=== PATIENT | male | born 1940 | race Caucasian/White ===

== ENCOUNTER → 2016-06-13 | Day surgery (SDC) | payer OTHER ==
[~2016-06-13] MED LIST: ALBU8I INH; ALLO300 PO; COLC1TAB7 PO; LACTATED RINGER'S 1000 ML INJ 1,000 ML ONE; LEVA500T PO; LEVA750T PO; LEVO.075 PO; LUTE20CA PO; PERC5TAB12 PO; PRED20 PO; PROPOFOL 500 MG/50 ML BTL IV ONE
--- NOTE | 2016-06-13 14:19 | GIPROC ---
[facility] [address] [facility], [address] EGD WITH DILATION PROCEDURE REPORT EXAM DATE: 06/13/2016 PATIENT NAME: Igor Lynne MR#: [id number] BIRTHDATE: 1940 ATTENDING: Annalise Hernández MD ORDER #: [id number] RISK MANAGEMENT DIRECTOR: Jami Ray RN STATUS: outpatient INDICATIONS: The patient is a 76 yr old male here for an EGD with dilation due to bloating , abdominal discomfort, dysphagia PROCEDURE PERFORMED: EGD w/ biopsy EGD w/ dilation of esophagus via guidewire MEDICATIONS: None and Per Anesthesia. TOPICAL ANESTHETIC: none CONSENT: The patient understands the risks and benefits of the procedure and understands that these risks include, but are not limited to: sedation, allergic reaction, infection, perforation and/or bleeding. Alternative means of evaluation and treatment include, among others: physical exam, x-rays, and/or surgical intervention. The patient elects to proceed with this endoscopic procedure. medical equipment was checked for proper function. Hand hygiene and appropriate measures for infection prevention was taken. After the risks, benefits and alternatives of the procedure were thoroughly explained, Informed consent was verified, confirmed and timeout was successfully executed by the treatment team. The patient was anesthetized with topical anesthesia and the EC-3490Li ([id number]) and EC-3490Li ([id number]) endoscope was introduced through the mouth and advanced to the second portion of the duodenum. The instrument was slowly withdrawn as the mucosa was fully examined. Gastrtis antrum-biopsy esophagitis distal esophagus-biopsy Schatzki's ring-biopsy dilatation using Savary dilator 16. Dilation was performed at gastroesophageal junction. DILATOR: SIZE(S): RESISTANCE: HEME: APPEARANCE: Dilator: Savary over guidewire Size(s): 16 COMMENT: Retroflexed views revealed a hiatal hernia ADVERSE EVENTS: There were no complications. IMPRESSIONS: 1. Gastrtis antrum-biopsy esophagitis distal esophagus-biopsy Schatzki's ring-biopsy dilatation using Savary dilator 16 2. Retroflexed views revealed a hiatal hernia RECOMMENDATIONS: 1. Await biopsy results. Biopsy results will not be ready for 7-10 days. If you don't hear from us in two weeks, call our office for biopsy results. 2. Anti-reflux regimen 3. Continue PPI 4. Dilatations PRN 5. Avoid NSAIDS REPEAT EXAM: EGD pending biopsy results Annalise Hernández MD eSigned: Annalise Hernández MD 06/13/2016 2:18 PM cc: Hyun Bragg [facility] Radha Hays M.D. PATIENT NAME: Igor Lynne MR#: [id number]
--- NOTE | 2016-06-13 14:22 | GIPROC ---
[facility] [address] [facility], [address] COLONOSCOPY PROCEDURE REPORT EXAM DATE: 06/13/2016 PATIENT NAME: Igor Lynne MR #: [id number] BIRTHDATE: 1940 ENDOSCOPIST: Annalise eHrnández MD ORDER #: [id number] LEAD CASTER HELPER: Jami aRy RN STATUS: outpatient INDICATIONS: The patient is a 76 yr old male here for a colonoscopy due to change in bowel habits, abdominal pain PROCEDURE PERFORMED: Colonoscopy with control of bleeding Colonoscopy with polypectomy Colonoscopy with ablation MEDICATIONS: None and Per Anesthesia. PREP QUALITY: good PREP TYPE:GoLytely ESTIMATED BLOOD LOSS: None CONSENT: The patient understands the risks and benefits of the procedure and understands that these risks include, but are not limited to: sedation, allergic reaction, infection, perforation and/or bleeding. Alternative means of evaluation and treatment include, among others: physical exam, x-rays, and/or surgical intervention. The patient elects to proceed with this endoscopic procedure. medical equipment was checked for proper function. Hand hygiene and appropriate measures for infection prevention was taken. After the risks, benefits and alternatives of the procedure were thoroughly explained, Informed consent was verified, confirmed and timeout was successfully executed by the treatment team. A digital exam revealed external hemorrhoids The EC-3490Li ([id number]) endoscope was introduced through the anus and advanced to the cecum, which was identified by both the appendix and ileocecal valve. The instrument was then slowly withdrawn as the colon was fully examined. COLON FINDINGS: Diverticulosis sigmoid,descending sessile polyp ascending-1 cm long-hot snare polypectomy with ablation of base using tip of snare, some bleeding-2 clips applied. Retroflexed views revealed internal hemorrhoids and Retroflexed views revealed small internal hemorrhoids The scope was then completely withdrawn from the patient and the procedure terminated. PROCEDURE WITHDRAWAL TIME:20minutes ADVERSE EVENTS: There were no complications. IMPRESSIONS: 1. Diverticulosis sigmoid,descending sessile polyp ascending-1 cm long-hot snare polypectomy with ablation of base using tip of snare, some bleeding-2 clips applied 2. Retroflexed views revealed internal hemorrhoids 3. Retroflexed views revealed small internal hemorrhoids 4. Revealed external hemorrhoids RECOMMENDATIONS: 1. Await biopsy results. Biopsy results will not be ready for 7-10 days. If you don't hear from us in two weeks, call our office for results. 2. Benefiber 2 tsp daily 3. Probiotics from any C or health food store 4. Yearly rectal exams 5. High fiber diet RECALL: Colonoscopy, pending biopsy results Annalise Hernández MD eSigned: Annalise Hernández MD 06/13/2016 2:22 PM cc: Hyun Bragg, [facility] Radha and Geni Hays M.D. PATIENT NAME: Igor Lynne MR#: [id number]
== END | disposition home or self-care (01) ==
LOC: ESDC 10:28
PROVIDERS: ATTEND Internal Medicine Gastroenterology
DX: R10.9 Unspecified abdominal pain (principal); R19.4 Change in bowel habit; D12.2 Benign neoplasm of ascending colon; K57.90 Diverticulosis of intestine, part unspecified, without perforation or abscess without bleeding; K64.8 Other hemorrhoids; K64.4 Residual hemorrhoidal skin tags; R14.0 Abdominal distension (gaseous); R13.10 Dysphagia, unspecified; K29.70 Gastritis, unspecified, without bleeding; K20.9 Esophagitis, unspecified; K22.2 Esophageal obstruction; K44.9 Diaphragmatic hernia without obstruction or gangrene
CPT/HCPCS: 00740; 00810; 43239; 43248; 45382; 45385; 88305; J3010; J7120

== ENCOUNTER 2016-12-11 17:22 | Inpatient (IN) | payer OTHER, MEDICARE ==
[~2016-12-11] VITALS: Ht 175.3 cm; Wt 88.2 kg
[~2016-12-11 17:22] MED LIST changes: -LACTATED RINGER'S 1000 ML INJ 1,000 ML ONE; -PROPOFOL 500 MG/50 ML BTL IV ONE
[2016-12-11 17:24] VITALS: BP 160/65; PULSE 88; RESP 20; TEMP 97.8; O2SAT 93
[2016-12-11] MEDS ORDERED: PERC10TA27 PO (17:54)
[2016-12-11] MEDS ORDERED: SYNT112T PO (17:54)
[2016-12-11] MEDS ORDERED: ONDANSETRON HCL 4 MG/2 ML VIAL IV PUSH ONE (18:00)
[2016-12-11] MEDS ORDERED: SODIUM CHLOR 0.9% 1000 ML INJ 1,000 ML IV ONE (18:00)
[2016-12-11] MEDS ORDERED: MORPHINE SULFATE 4 MG/ML INJ IV PUSH ONE (18:00)
--- NOTE | 2016-12-11 18:10 | PD ---
HPI Chief Complaint: Musculoskeletal Complaint Time Seen by Provider: 17:40 Travel History International Travel<30 days: No Contact w/Intl Traveler<30days: No Traveled to known affect area: No History of Present Illness HPI 76 year old male presents to the emergency department for evaluation of right leg pain. Patient does report history of right leg pain, but states it has been worse since , 3 days ago. He states he was seen at [facility] on Monday and had a CT scan of his abdomen/pelvis done which showed kidney stones. However, he denies any back pain or abdominal pain on my exam. Patient reports history of chronic back pain due to previous surgery by Dr. Srinivasa Espinal. He states he had an MRI done recently which showed "a loose screw". However, he states he does not want to see Dr. Espinal anymore. He was discharged home from [facility] with prescription for oxycodone which she states he is taking without improvement. Patient states the entire leg hurts. He states it feels like "I have a broken bone". He does state that he has fallen several times recently, but last time he fell was on Monday, pain was not after the fall. He states these are all trip and falls. He states he did not his head or having loss of consciousness. He denies any neck pain or back pain. No chest pain or shortness breath. No abdominal pain. No nausea, vomiting, diarrhea. Patient states he has history of chronic right foot drop which has been ongoing for 4-5 months. Patient reports history of surgery to L3-[address] Espinal 5 years ago and surgery to C3 by Dr. Espinal 3 years ago. 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) Cardiovascular Problems: Yes High Cholesterol: Yes (LDL is a little high) Chemotherapy: No Diabetes: No Diminished Hearing: No Endocrine: Yes Gastrointestinal Disorders: Yes GERD: Yes Genitourinary: No Hiatal Hernia: Yes Immune Disorder: No Kidney Stones: Yes (8 times) Musculoskeletal: Yes Neurologic: Yes Psychiatric: Yes Reproductive: No Respiratory: Yes Immunizations Current: Yes Radiation Therapy: No Renal Failure: No Sleep Apnea: Yes Thyroid Disease: Yes Ulcer: No Past Surgical History Abdominal Surgery: Yes (Gall bladder removed 2011) Body Medical Devices: 2 screws in back Cardiac Surgery: No Cholecystectomy: Yes Ear Surgery: No Endocrine Surgery: No Eye Surgery: No Genitourinary Surgery: No Gynecologic Surgery: No Thoracic Surgery: No Other Surgery: Yes Social History Alcohol Use: Yes (RARE OCCASSION) Tobacco Use: No Substance Use: No Allergies-Medications (Allergen,Severity, Reaction): Coded Allergies: codeine (Verified Allergy, Severe, Nausea/Vomiting, 12/11/16) Reported Meds & Prescriptions Reported Meds & Active Scripts Active Reported Percocet (Oxycodone-Acetaminophen) 10-325 mg Tab 1 Tab PO Q4H PRN Synthroid (Levothyroxine Sodium) 112 Mcg Tab 112 Mcg PO DAILY Review of Systems Except as stated in HPI: all other systems reviewed are Neg Physical Exam Narrative GENERAL: Well-nourished, well-developed male patient, afebrile. SKIN: Focused skin assessment warm/dry. HEAD: Normocephalic. Atraumatic. EYES: No scleral icterus. No injection or drainage. NECK: Supple, trachea midline. No JVD or lymphadenopathy. CARDIOVASCULAR: Regular rate and rhythm without murmurs, gallops, or rubs. Bilateral radial and pedal pulses are 2+. RESPIRATORY: Breath sounds equal bilaterally. No accessory muscle use. Lungs sounds are clear to auscultation. GASTROINTESTINAL: Abdomen soft, non-tender, nondistended. MUSCULOSKELETAL: No cyanosis, or edema. Patient has full range of motion of all joints of the right leg. There is no tenderness to palpation over the right leg. He does have tenderness with straight leg raise on the right side. No edema or erythema. BACK: Nontender without obvious deformity. No CVA tenderness. No midline spinal tenderness. Data Data Last Documented VS Vital Signs Date Time Temp Pulse Resp B/P (MAP) Pulse Ox O2 Delivery O2 Flow Rate FiO2 12/11/16 17:24 97.8 88 20 160/65 (96) 93 Room Air Orders Orders Iv Access Insert/Monitor (12/11/16 17:53) Complete Blood Count With Diff (12/11/16 17:53) Comprehensive Metabolic Panel (12/11/16 17:53) Urinalysis - C+S If Indicated (12/11/16 17:53) Sodium Chlor 0.9% 1000 Ml Inj (Ns 1000 M (12/11/16 18:00) Morphine Inj (Morphine Inj) (12/11/16 18:00) Ondansetron Inj (Zofran Inj) (12/11/16 18:00) Mri L Spine W/O Contrast (12/11/16 ) Hydromorphone Pf Inj (Dilaudid Pf Inj) (12/11/16 18:15) Dexamethasone Inj (Decadron Inj) (12/11/16 19:30) Orphenadrine Inj (Norflex Inj) (12/11/16 19:45) Admit Order (Ed Use Only) (12/11/16 20:00) Labs Laboratory Tests Test 12/11/16 18:15 White Blood Count 6.3 TH/MM3 Red Blood Count 3.85 MIL/MM3 Hemoglobin 12.7 GM/DL Hematocrit 36.6 % Mean Corpuscular Volume 95.0 FL Mean Corpuscular Hemoglobin 33.0 PG Mean Corpuscular Hemoglobin Concent 34.7 % Red Cell Distribution Width 13.9 % Platelet Count 323 TH/MM3 Mean Platelet Volume 7.9 FL Neutrophils (%) (Auto) 71.8 % Lymphocytes (%) (Auto) 18.7 % Monocytes (%) (Auto) 7.1 % Eosinophils (%) (Auto) 1.2 % Basophils (%) (Auto) 1.2 % Neutrophils # (Auto) 4.6 TH/MM3 Lymphocytes # (Auto) 1.2 TH/MM3 Monocytes # (Auto) 0.5 TH/MM3 Eosinophils # (Auto) 0.1 TH/MM3 Basophils # (Auto) 0.1 TH/MM3 CBC Comment DIFF FINAL Differential Comment Blood Urea Nitrogen 23 MG/DL Creatinine 1.25 MG/DL Random Glucose 84 MG/DL Total Protein 7.0 GM/DL Albumin 4.0 GM/DL Calcium Level 9.5 MG/DL Alkaline Phosphatase 75 U/L Aspartate Amino Transf (AST/SGOT) 34 U/L Alanine Aminotransferase (ALT/SGPT) 28 U/L Total Bilirubin 0.8 MG/DL Sodium Level 138 MEQ/L Potassium Level 4.1 MEQ/L Chloride Level 106 MEQ/L Carbon Dioxide Level 23.0 MEQ/L Anion Gap 9 MEQ/L Estimat Glomerular Filtration Rate 56 ML/MIN MDM Medical Decision Making Medical Screen Exam Complete: Yes Emergency Medical Condition: Yes Medical Record Reviewed: Yes Interpretation(s) Last Impressions Lumbar Spine MRI 12/11/16 0000 Signed Impressions: Service Date/Time: Sunday, December 11, 2016 18:46 - CONCLUSION: 1. At L3-4 there is a grade 1 retrolisthesis resulting in moderate stenosis of the canal at the lateral recesses and moderate bilateral foraminal stenosis. 2. At L4-5 there is fusion with a residual grade 1 anterolisthesis and mild lateral recess and foraminal encroachment bilaterally. 3. At L5-S1 there is a disc bulge and facet arthropathy with moderate right foraminal stenosis and some flattening of the right L5 nerve root. 4. No acute fracture. Conus intact. Charly Nichole MD Differential Diagnosis Lumbar radiculopathy versus herniated disc versus chronic pain Narrative Course 76 year old male presents to the emergency department for right leg pain that is been severe for 3 days. No evidence of bony injury on exam. My attending physician, Dr. Malloy, also examined patient with me. CBC, CMP, UA are ordered and pending. IV access obtained. Patient is given normal saline 1 L IV bolus, Dilaudid 0.5 mg IV, Zofran 4 mg IV. MRI of the lumbar spine without contrast is ordered and pending. CBC shows no acute abnormality. CMP shows no acute abnormality. UA [-]. MRI of the lumbar spine shows at L3-4 there is a grade 1 retrolisthesis resulting in moderate stenosis of the canal at the lateral recesses and moderate bilateral foraminal stenosis; at L4-5 there is fusion with a residual grade 1 anterolisthesis and mild lateral recess and foraminal encroachment bilaterally; at L5-S1 there is a disc bulge and facet arthropathy with moderate right foraminal stenosis and some flattening of the right L5 nerve root; No acute fracture. Conus intact. I will contact patient's orthopedist, Dr. Srinivasa Espinal. Patient reports no improvement after Dilaudid. He is given dexamethasone 8 mg IV, Norflex 60 mg IM. I spoke to Dr. Norris with Dr. Espinal's office. She states that Dr. Espinal does not perform spine surgery. She went through her records at the office he cannot find any evidence that one of the providers at the office did the surgery on him. She states that it may be better to do consult to neurosurgery due to the fact that she does not believe that they did the surgery. [facility] is paged for admission. Dr. Engel accepted admission. Diagnosis Primary Impression: Intractable back pain Admitting Information Admitting Physician Requests: Observation Stephani Hanson Dec 11, 2016 18:10
[2016-12-11] MEDS ORDERED: HYDROmorphone HCL PF 0.5 MG/0.5 ML SYRINGE IV PUSH ONE (18:15)
[2016-12-11 18:44] LABS: AUTOMATED NEUTROPHIL # 4.6 TH/MM3 (1.8-7.7); BASOPHIL # 0.1 TH/MM3 (0-0.2); BASOPHIL % 1.2 % (0.0-2.0); EOSINOPHIL # 0.1 TH/MM3 (0-0.4); EOSINOPHIL % 1.2 % (0.0-4.0); HEMATOCRIT 36.6 % (39.0-51.0); HEMO FLAGS DIFF FINAL; LYMPH % 18.7 % (9.0-44.0); LYMPHOCYTE # 1.2 TH/MM3 (1.0-4.8); MEAN CORPUSCULAR HGB CONC 34.7 % (32.0-36.0); MONO % 7.1 % (0.0-8.0); NEUT % 71.8 % (16.0-70.0); PLATELET COUNT 323 TH/MM3 (150-450); RED BLOOD COUNT 3.85 MIL/MM3 (4.50-5.90); RED CELL DISTRIBUTION WIDTH 13.9 % (11.6-17.2); WHITE BLOOD COUNT 6.3 TH/MM3 (4.0-11.0)
[2016-12-11 19:00] LABS: ANION GAP 9 MEQ/L (5-15); AST (GOT) 34 U/L (15-37); BLOOD UREA NITROGEN 23 MG/DL (7-18); CHLORIDE 106 MEQ/L (98-107); GLOMERULAR FILTRATION RATE 56 ML/MIN (>89); POTASSIUM 4.1 MEQ/L (3.5-5.1); SODIUM (NA) 138 MEQ/L (136-145)
[2016-12-11 19:01] LABS: ALT (GPT) 28 U/L (12-78)
[2016-12-11 19:03] LABS: ALKALINE PHOSPHATASE 75 U/L (45-117); TOTAL BILIRUBIN ADULT 0.8 MG/DL (0.2-1.0)
--- NOTE | 2016-12-11 19:23 | RADRPT ---
EXAM DATE/TIME: 12/11/2016 18:46 [facility] COMPARISON: No previous studies available for comparison. INDICATIONS : Fall, low back and rt leg pain. MEDICAL HISTORY : Arthritis. SURGICAL HISTORY : Fusion, lumbar. Fusion, cervical. ENCOUNTER: Initial ACUITY: 1 day PAIN SCORE: 5/10 LOCATION: [facility] TECHNIQUE: Multiplanar multisequence MRI of the lumbar spine was performed without contrast. FINDINGS: At T12 and L1-L2 there is mild degenerative disc disease and facet arthropathy without significant ca nal or foraminal stenosis. At L2-3 there is a mild broad-based posterior disc protrusion and facet arthropathy with mild stenosi s of the lateral recesses and mild bilateral foraminal stenosis. At L3-4 there is a grade 1 retrolisthesis and advanced facet arthropathy. This results in a moderate stenosis of the lateral recesses and moderate bilateral foraminal stenosis with some flattening of th e exiting nerve roots. At L4-5 there is screw fixation of a minimal residual anterolisthesis. Mild canal stenosis of lateral recesses and mild bilateral foraminal encroachment. L5-S1: Mild central disc bulge and facet arthropathy. Mild canal stenosis the lateral recesses and mild left -sided foraminal encroachment. Moderate right foraminal stenosis with flattening of the right L5 nerv e root. CONCLUSION: 1. At L3-4 there is a grade 1 retrolisthesis resulting in moderate stenosis of the canal at the later al recesses and moderate bilateral foraminal stenosis. 2. At L4-5 there is fusion with a residual grade 1 anterolisthesis and mild lateral recess and forami nal encroachment bilaterally. 3. At L5-S1 there is a disc bulge and facet arthropathy with moderate right foraminal stenosis and so me flattening of the right L5 nerve root. 4. No acute fracture. Conus intact. Charly Nichole MD on December 11, 2016 at 19:17 Board Certified Radiologist. This report was verified electronically.
[2016-12-11] MEDS ORDERED: DEXAMETHASONE SOD PHOS 4 MG/ML VIAL IV PUSH ONE (19:30)
[2016-12-11] MEDS ORDERED: ORPHENADRINE INJ 60 MG/2 ML AMP IM ONE (19:45)
[2016-12-11] MEDS ORDERED: IOHEXOL 300 MG/ML 50 ML BTL (for RAD DIAG) IT ONE (20:02)
[2016-12-11 20:04] VITALS: BP 146/84; PULSE 79; RESP 18; O2SAT 95
--- NOTE | 2016-12-11 20:23 | HHI.HP ---
HPI Service [facility] Primary Care Physician Geni Hays MD Admission Diagnosis intractable back pain Diagnoses: (1) Recurrent falls Diagnosis: Principal (2) Intractable back pain Diagnosis: Principal (3) Dehydration Diagnosis: Principal (4) HTN (hypertension) Diagnosis: Principal Travel History International Travel<30 Days: No Contact w/Intl Traveler <30 Da: No Traveled to Known Affected Are: No History of Present Illness This is a 76-year-old male with a PMH of Anxiety, Depression, HTN, Hyperlipidemia, Hypothyroidism and Sleep Apnea who presented to the ER with complaints of severe back pain in addition to right leg pain x1 wk. Denies injury or trauma. Was seen at [facility] 12/09/16 for similar complaints, d/c' d home w/ Rx for Norflex and Percocet w/ Ortho follow up. Returned to [facility] several hours later on 12/09/16 w/ ongoing complaints. CT Abd/Pelvis w/ no acute findings. Pelvis X-ray w/ no evidence of bony pathology per records. D/c'd home once again, however returns now w/ ongoing severe pain, also notes radicular, shooting pain down RLE. Previously following w/ Dr. Espinal s/p Lumbar Sx 5yrs ago, has appt in 1mo. On arrival, BP 160/65, HR 88, O2 sat 93% on RA, Afebrile. CBC unremarkable. Chemistry essentially unremarkable except for GFR 56. MRI L-spine with L3-L4 grade 1 retrolisthesis resulting in moderate stenosis and moderate bilateral foraminal stenosis, L4-L5 with fusion and residual grade 1 anterolisthesis, L5-S1 disc bulge with moderate right foraminal stenosis and flattening of right L5 nerve root. Dr. Norris consulted by ER physician, recommended further eval by Neurosurgery if needed. S/p multiple doses of pain medication in ER w/ minimal improvement. Review of Systems Except as stated in HPI: all other systems reviewed are Neg ROS: 14 point review of systems otherwise negative. Past Family Social History Past Medical History PMH: Anxiety, Depression, HTN, Hyperlipidemia, Hypothyroidism and Sleep Apnea Past Surgical History PAST SURGICAL HISTORY: Cholecystectomy Back Surgery Allergies: Coded Allergies: codeine (Verified Allergy, Severe, Nausea/Vomiting, 12/11/16) Family History PAST FAMILY HISTORY: Reviewed. No h/o DM or CAD Social History PAST SOCIAL HISTORY: Occasional alcohol. Negative for tobacco or drugs. Physical Exam Vital Signs Vital Signs Date Time Temp Pulse Resp B/P (MAP) Pulse Ox O2 Delivery O2 Flow Rate FiO2 12/11/16 20:04 79 18 146/84 (104) 95 Room Air 12/11/16 17:24 97.8 88 20 160/65 (96) 93 Room Air Physical Exam PE: GENERAL: Elderly male in mild distress secondary to pain HEENT: PERRLA, EOMI. No scleral icterus or conjunctival pallor. No lid lag or facial droop. CARDIOVASCULAR: Regular rate and rhythm. No obvious murmurs to auscultation. No chest tenderness to palpation. RESPIRATORY: No obvious rhonchi or wheezing. Clear to auscultation. Breath sounds equal bilaterally. GASTROINTESTINAL: Abdomen soft, non-tender, nondistended. BS normal. MUSCULOSKELETAL: Extremities without clubbing, cyanosis, or edema. No obvious deformities. Reproducible right lumbar pain w/ straight leg raise. NEUROLOGICAL: Awake, alert and oriented x4. No focal neurologic deficits. Moving both upper and lower extremities spontaneously. Laboratory Laboratory Tests Test 12/11/16 18:15 White Blood Count 6.3 Red Blood Count 3.85 Hemoglobin 12.7 Hematocrit 36.6 Mean Corpuscular Volume 95.0 Mean Corpuscular Hemoglobin 33.0 Mean Corpuscular Hemoglobin Concent 34.7 Red Cell Distribution Width 13.9 Platelet Count 323 Mean Platelet Volume 7.9 Neutrophils (%) (Auto) 71.8 Lymphocytes (%) (Auto) 18.7 Monocytes (%) (Auto) 7.1 Eosinophils (%) (Auto) 1.2 Basophils (%) (Auto) 1.2 Neutrophils # (Auto) 4.6 Lymphocytes # (Auto) 1.2 Monocytes # (Auto) 0.5 Eosinophils # (Auto) 0.1 Basophils # (Auto) 0.1 CBC Comment DIFF FINAL Differential Comment Blood Urea Nitrogen 23 Creatinine 1.25 Random Glucose 84 Total Protein 7.0 Albumin 4.0 Calcium Level 9.5 Alkaline Phosphatase 75 Aspartate Amino Transf (AST/SGOT) 34 Alanine Aminotransferase (ALT/SGPT) 28 Total Bilirubin 0.8 Sodium Level 138 Potassium Level 4.1 Chloride Level 106 Carbon Dioxide Level 23.0 Anion Gap 9 Estimat Glomerular Filtration Rate 56 Result Diagram: 12/11/16181412/11/161814 Caprini VTE Risk Assessment Caprini VTE Risk Assessment: No/Low Risk (score <= 1) Caprini Risk Assessment Model Point Value = 1 Point Value = 2 Point Value = 3 Point Value = 5 Age 41-60 Minor surgery BMI > 25 kg/m2 Swollen legs Varicose veins or History of unexplained or recurrent spontaneous Oral contraceptives or hormone replacement Sepsis (< 1 month) Serious lung disease, including pneumonia (< 1 month) Abnormal pulmonary function Acute myocardial infarction Congestive heart failure (< 1 month) History of inflammatory bowel disease Medical patient at bed rest Age 61-74 Arthroscopic surgery Major open surgery (> 45 min) Laparoscopic surgery (> 45 min) Malignancy Confined to bed (> 72 hours) Immobilizing plaster cast Central venous access Age >= 75 History of VTE Family history of VTE Factor V Leiden Prothrombin [id number] Lupus anticoagulant Anticardiolipin antibodies Elevated serum homocysteine Heparin-induced thrombocytopenia Other congenital or acquired thrombophilia Stroke (< 1 month) Elective arthroplasty Hip, pelvis, or leg fracture Acute spinal cord injury (< 1 month) Prophylaxis Regimen Total Risk Factor Score Risk Level Prophylaxis Regimen 0-1 Low Early ambulation 2 Moderate Order ONE of the following: *Sequential Compression Device (SCD) *Heparin 5000 units SQ BID 3-4 Higher Order ONE of the following medications: *Heparin 5000 units SQ TID *Enoxaparin/Lovenox 40 mg SQ daily (WT < 150 kg, CrCl > 30 mL/min) *Enoxaparin/Lovenox 30 mg SQ daily (WT < 150 kg, CrCl > 10-29 mL/min) *Enoxaparin/Lovenox 30 mg SQ BID (WT < 150 kg, CrCl > 30 mL/min) AND/OR *Sequential Compression Device (SCD) 5 or more Highest Order ONE of the following medications: *Heparin 5000 units SQ TID (Preferred with Epidurals) *Enoxaparin/Lovenox 40 mg SQ daily (WT < 150 kg, CrCl > 30 mL/min) *Enoxaparin/Lovenox 30 mg SQ daily (WT < 150 kg, CrCl > 10-29 mL/min) *Enoxaparin/Lovenox 30 mg SQ BID (WT < 150 kg, CrCl > 30 mL/min) AND *Sequential Compression Device (SCD) Assessment and Plan Problem List: (1) Recurrent falls ICD Code: R29.6 - Repeated falls (2) Intractable back pain ICD Code: M54.9 - Dorsalgia, unspecified Status: Acute (3) Dehydration ICD Code: E86.0 - Dehydration (4) HTN (hypertension) ICD Code: I10 - Essential (primary) hypertension Assessment and Plan A/P: 1. Recurrent Falls: reports recurrent falls x1 wk secondary to severe back pain, no LOC or head trauma noted. PT for eval/tx. 2. Intractable Back Pain: w/ associated Radicular Pain, s/p eval [facility] on 2 separate occasions, given Percocet, Norflex w/ no relief. CT Abd/Pelvis and Pelvic X-ray at w/ no acute findings, no lumbar imaging per records. MRI L-spine here w/ moderate canal stenosis, flattening of L5 nerve root, images reviewed by me. Dr. Norris consulted by ER physician, recommended eval w/ NxSx, will consult for eval in am. Solu-Medrol, Valium, analgesics/antiemetics as needed. PT for eval/tx. 3. Dehydration: GFR 56, BUN 23. IVF for hydration, repeat labs in am. 4. HTN: BP 160's on arrival, likely compounded by pain complaints, BP 140's currently. Will monitor. 5. DVT Prophylaxis: SCD/Teds 6. Social work for d/c planning as needed. 7. Case discussed w/ ER physician at length. Kaleigh Engel MD Dec 11, 2016 20:23
[2016-12-11] MEDS ORDERED: BISACODYL 10 MG SUPP RECTAL PRN (20:30)
[2016-12-11] MEDS ORDERED: LACTULOSE SYRUP 20 GM/30 ML CUP PO PRN (20:30)
[2016-12-11] MEDS ORDERED: SENNOSIDES 8.6 MG TAB PO PRN (20:30)
[2016-12-11] MEDS ORDERED: DIAZEPAM 5 MG TAB PO PRN (20:30)
[2016-12-11] MEDS ORDERED: ACETAMINOPHEN 325 MG TAB PO PRN (20:30)
[2016-12-11] MEDS ORDERED: ONDANSETRON HCL 4 MG/2 ML VIAL IVP PRN (20:30)
[2016-12-11] MEDS ORDERED: SODIUM CHLORIDE 0.9% FLUSH 10 ML FLUSH IV FLUSH PRN (20:30)
[2016-12-11] MEDS ORDERED: MAGNESIUM HYDROXIDE SUSP 30 ML CUP PO PRN (20:30)
[2016-12-11] MEDS: SODIUM CHLOR 0.9% 1000 ML INJ 1,000 ML IV SCH (20:49)
[2016-12-11] MEDS: SODIUM CHLORIDE 0.9% FLUSH 10 ML FLUSH IV FLUSH SCH (21:06)
[2016-12-11] MEDS: DOCUSATE SODIUM 50 MG/SENNA 8.6 MG TAB PO SCH (22:15)
[2016-12-12] VITALS (8 sets, daily range): BP systolic 126–171; BP diastolic 61–94; PULSE 75–87; RESP 16–18; TEMP 97.5–98.5; O2SAT 93–99
[2016-12-12 00:43] LABS: BLOOD, URINE NEG (NEG); COMMENT (UR) CULT NOT INDICATED; CULTURE IF INDICATED CULT NOT INDICATED; GLUCOSE,URINE NEG (NEG); KETONE, URINE TRACE mg/dL (NEG); MUCUS URINE FEW /lpf (OCC); NITRITE,URINE NEG (NEG); PH, URINE 5.5 (5.0-8.5); URINE COLOR YELLOW (YELLW/STRAW)
[2016-12-12] MEDS: MORPHINE SULFATE 4 MG/ML INJ IV PUSH PRN ×2 (02:54→06:25)
[2016-12-12] MEDS: CALCIUM CARBONATE 500 MG CHEWABLE TAB CHEW PRN (03:35)
[2016-12-12 04:50] LABS: AUTOMATED NEUTROPHIL # 4.8 TH/MM3 (1.8-7.7); BASOPHIL % 0.1 % (0.0-2.0); HEMO FLAGS DIFF FINAL; LYMPHOCYTE # 0.4 TH/MM3 (1.0-4.8); MEAN CELL VOLUME 95.4 FL (80.0-100.0); MEAN CORPUSCULAR HEMOGLOBIN 32.6 PG (27.0-34.0); MEAN CORPUSCULAR HGB CONC 34.1 % (32.0-36.0); MONO % 1.2 % (0.0-8.0); NEUT % 91.7 % (16.0-70.0); PLATELET COUNT 329 TH/MM3 (150-450); RED BLOOD COUNT 3.88 MIL/MM3 (4.50-5.90); RED CELL DISTRIBUTION WIDTH 13.5 % (11.6-17.2); WHITE BLOOD COUNT 5.2 TH/MM3 (4.0-11.0)
[2016-12-12 05:26] LABS: ALT (GPT) 24 U/L (12-78); ANION GAP 9 MEQ/L (5-15); AST (GOT) 31 U/L (15-37); BICARBONATE 25.1 MEQ/L (21.0-32.0); BLOOD UREA NITROGEN 22 MG/DL (7-18); CHLORIDE 105 MEQ/L (98-107); GLOMERULAR FILTRATION RATE 64 ML/MIN (>89); POTASSIUM 4.6 MEQ/L (3.5-5.1); SODIUM (NA) 139 MEQ/L (136-145)
[2016-12-12 05:29] LABS: ALKALINE PHOSPHATASE 73 U/L (45-117); TOTAL BILIRUBIN ADULT 0.8 MG/DL (0.2-1.0)
[2016-12-12] MEDS: LEVOTHYROXINE SODIUM 112 MCG TAB PO SCH (06:19)
[2016-12-12] MEDS: SODIUM CHLOR 0.9% 1000 ML INJ 1,000 ML IV SCH ×2 (07:10→15:47)
[2016-12-12] MEDS ORDERED: HYDROmorphone HCL PF 0.5 MG/0.5 ML SYRINGE IV PUSH PRN (08:30)
[2016-12-12] MEDS ORDERED: HYDROmorphone HCL PF 1 MG/ML VIAL IV PUSH ONE (08:30)
[2016-12-12] MEDS: SODIUM CHLORIDE 0.9% FLUSH 10 ML FLUSH IV FLUSH SCH ×2 (09:00→20:50)
[2016-12-12] MEDS: methylPREDNISolone SOD SUCC 40 MG/1 ML VIAL IV PUSH SCH ×2 (09:38→20:51)
[2016-12-12] MEDS: DOCUSATE SODIUM 50 MG/SENNA 8.6 MG TAB PO SCH ×2 (09:39→20:50)
--- NOTE | 2016-12-12 10:07 | HHI.PR ---
Subjective Remarks Follow up for back pain and right leg pain. Patient is currently resting in bed. However he complains of significant pain down his right leg. No fever or chills. He also complains of left ankle gout. He is waiting for neurosurgery to evaluate him. Objective Vitals Vital Signs Date Time Temp Pulse Resp B/P (MAP) Pulse Ox O2 Delivery O2 Flow Rate FiO2 12/12/16 07:58 155/79 (104) 12/12/16 07:52 97.7 87 18 169/94 (119) 98 12/12/16 03:29 98.2 78 18 158/86 (110) 95 12/12/16 00:23 98.2 77 18 155/72 (99) 93 12/11/16 20:04 79 18 146/84 (104) 95 Room Air 12/11/16 17:24 97.8 88 20 160/65 (96) 93 Room Air I/O 12/11/16 12/11/16 12/11/16 12/12/16 12/12/16 12/12/16 07:00 15:00 23:00 07:00 15:00 23:00 Intake Total 1000 ml 1000 ml Output Total 450 ml Balance 1000 ml 1000 ml -450 ml Intake IV Total 1000 ml 1000 ml Output Urine Total 450 ml Result Diagram: 12/12/16 0428 12/12/16 0420 Imaging Last Impressions Lumbar Spine MRI 12/11/16 0000 Signed Impressions: Service Date/Time: Sunday, December 11, 2016 18:46 - CONCLUSION: 1. At L3-4 there is a grade 1 retrolisthesis resulting in moderate stenosis of the canal at the lateral recesses and moderate bilateral foraminal stenosis. 2. At L4-5 there is fusion with a residual grade 1 anterolisthesis and mild lateral recess and foraminal encroachment bilaterally. 3. At L5-S1 there is a disc bulge and facet arthropathy with moderate right foraminal stenosis and some flattening of the right L5 nerve root. 4. No acute fracture. Conus intact. Charly Nichole MD Objective Remarks GENERAL: Alert, oriented 3, NAD. SKIN: Warm and dry. HEAD: Normocephalic. EYES: No scleral icterus. No injection or drainage. NECK: Supple, trachea midline. No JVD or lymphadenopathy. CARDIOVASCULAR: Regular rate and rhythm without murmurs, gallops, or rubs. RESPIRATORY: Breath sounds equal bilaterally. No accessory muscle use. GASTROINTESTINAL: Abdomen soft, non-tender, nondistended. MUSCULOSKELETAL: No cyanosis, or edema. Right leg pain on movements. BACK: Nontender without obvious deformity. No CVA tenderness. Procedures None A/P Problem List: (1) Recurrent falls ICD Code: R29.6 - Repeated falls (2) Intractable back pain ICD Code: M54.9 - Dorsalgia, unspecified Status: Acute (3) Dehydration ICD Code: E86.0 - Dehydration (4) HTN (hypertension) ICD Code: I10 - Essential (primary) hypertension Assessment and Plan This is a 76-year-old male with a PMH of Anxiety, Depression, HTN, Hyperlipidemia, Hypothyroidism and Sleep Apnea who presented to the ER with complaints of severe back pain in addition to right leg pain x1 wk prior to this admission. Denies any injury or trauma. On arrival, BP 160/65, HR 88, O2 sat 93% on RA, Afebrile. CBC unremarkable. Chemistry essentially unremarkable except for GFR 56. MRI L-spine with L3-L4 grade 1 retrolisthesis resulting in moderate stenosis and moderate bilateral foraminal stenosis, L4-L5 with fusion and residual grade 1 anterolisthesis, L5-S1 disc bulge with moderate right foraminal stenosis and flattening of right L5 nerve root. - L3-L4 spondylolisthesis - Neurosurgery recommends non-surgical management with pain management, PT. - Will keep patient on acetaminophen, Percocet, Dilaudid IV when necessary for pain management. - Physical therapy consulted. - Continue Solu-Medrol 40 mg IV every 12 hours. Continue diazepam 5 mg by mouth every 8 hours for muscle spasm. - Hypothyroidism - continue levothyroxine 112 g daily. - Hypertension - possibly due to pain. Will monitor to see if he needs any antihypertensives. Full code. SCDs. Satya Sumner DO Dec 12, 2016 10:07 am
--- NOTE | 2016-12-12 12:17 | PD.CONS ---
[facility] Service neurosurg Consult Requested By [facility] Reason for Consult Lumbnar stenosis Primary Care Physician Geni Hays MD History of Present Illness This is a 76-year-old male with history of of Anxiety, Depression, HTN, Hyperlipidemia, Hypothyroidism and Sleep Apnea who presented to the ER with complaints of severe back pain and right leg pain increasing in severity for the past wk. Denies injury or trauma. Was seen at [facility] 12/09/16 for similar complaints, d/c'd home w/ Rx for Norflex and Percocet w/ Ortho follow up. He returned to [facility] several hours later on 12/09/16 w/ ongoing complaints. CT Abd/Pelvis w/ no acute findings. Pelvis X-ray did not show evidence of bony pathology per records. D/c'd home once again, however returns now w/ ongoing severe pain, also notes radicular, shooting pain down RLE. Previously following w/ Dr. Andi Espinal s/p Lumbar Sx 5yrs ago, has a follow up appt in 1mo. On arrival, BP 160/65, HR 88, O2 sat 93% on RA, Afebrile. CBC unremarkable. Chemistry essentially unremarkable except for GFR 56. MRI L- spine with L3-L4 grade 1 retrolisthesis resulting in moderate stenosis and moderate bilateral foraminal stenosis, L4-L5 with fusion and residual grade 1 anterolisthesis, L5-S1 disc bulge with moderate right foraminal stenosis and flattening of right L5 nerve root. Dr. Norris was consulted by ER physician, recommended further eval by Neurosurgery if needed. He received multiple doses of pain medication in ER w/ minimal improvement. Neurosurgical consultation was requested Review of Systems Constitutional: DENIES: Diaphoretic episodes, Fatigue, Fever, Weight gain, Weight loss, Chills, Dizziness, Change in appetite, Night Sweats Endocrine: DENIES: Heat/cold intolerance, Polydipsia, Polyuria, Polyphagia Eyes: DENIES: Blurred vision, Diplopia, Eye inflammation, Eye pain, Vision loss , Photosensitivity, Double Vision Ears, nose, mouth, throat: DENIES: Tinnitus, Hearing loss, Vertigo, Nasal discharge, Oral lesions, Throat pain, Hoarseness, Ear Pain, Running Nose, Epistaxis, Sinus Pain, Toothache, Odynophagia Respiratory: DENIES: Apneas, Cough, Snoring, Wheezing, Hemoptysis, Sputum production, Shortness of breath Cardiovascular: DENIES: Chest pain, Palpitations, Syncope, Dyspnea on Exertion , PND, Lower Extremity Edema, Orthopnea, Claudication Genitourinary: DENIES: Sexual dysfunction, Urinary frequency, Urinary incontinence, Urgency, Hematuria, Dysuria, Nocturia, Penile Discharge, Testicular Pain, Testicular Swelling Musculoskeletal: COMPLAINS OF: Joint pain, Back pain, DENIES: Muscle aches, Stiffness, Joint Swelling, Neck pain Integumentary: DENIES: Abnormal pigmentation, Nail changes, Pruritus, Rash Hematologic/lymphatic: DENIES: Bruising, Lymphadenopathy Immunologic/allergic: DENIES: Eczema, Urticaria Neurologic: COMPLAINS OF: Abnormal gait, DENIES: Headache, Localized weakness, Paresthesias, Seizures, Speech Problems, Tremor, Poor Balance Psychiatric: COMPLAINS OF: Anxiety, Depression, Agitation, DENIES: Confusion, Mood changes, Hallucinations, Suicidal Ideation, Homicidal Ideation, Delusions Past Family Social History Allergies: Coded Allergies: codeine (Verified Allergy, Severe, Nausea/Vomiting, 12/11/16) Past Medical History Anxiety, Depression, HTN, Hyperlipidemia, Hypothyroidism Sleep Apnea Past Surgical History Past Surgical History Cholecystectomy Lumbat Surgery with L4-5 fusion Active Ordered Medications Current Medications Sodium Chloride 1,000 ml @ 999 mls/hr BOLUS ONCE IV Last administered on 18:32; Start 12/11/16 at 18:00; Stop 12/11/16 at 19:00; Status DC Morphine Sulfate (Morphine Inj) 4 mg ONCE ONCE IV PUSH ; Start 12/11/16 at 18: 00; Stop 12/11/16 at 18:11; Status DC Ondansetron HCl (Zofran Inj) 4 mg ONCE ONCE IV PUSH Last administered on 12/11 18:32; Start 12/11/16 at 18:00; Stop 12/11/16 at 18:09; Status DC Hydromorphone HCl (Dilaudid Pf Inj) 0.5 mg ONCE ONCE IV PUSH Last administered on 12/11/16 18:33; Start 12/11/16 at 18:15; Stop 12/11/16 at 18 :16; Status DC Dexamethasone Sodium Phosphate (Decadron Inj) 8 mg ONCE ONCE IV PUSH Last administered on 12/11/16 19:22; Start 12/11/16 at 19:30; Stop 12/11/16 at 19 :31; Status DC Orphenadrine Citrate (Norflex Inj) 60 mg ONCE ONCE IM Last administered on 19:39; Start 12/11/16 at 19:45; Stop 12/11/16 at 19:46; Status DC Diazepam (Valium) 5 mg Q8H PRN PO MUSCLE SPASM; Start 12/11/16 at 20:30 Methylprednisolone Sodium Succinate (SoluMEDROL INJ) 40 mg Q12HR IV PUSH Last administered on 12/12/16 09:38; Start 12/12/16 at 09:00 Sodium Chloride 1,000 ml @ 100 mls/hr Q10H IV Last administered on 12/12/16 07:10; Start 12/11/16 at 20:30 Sodium Chloride (NS Flush) 2 ml UNSCH PRN IV FLUSH FLUSH AFTER USING IV ACCESS ; Start 12/11/16 at 20:30 Sodium Chloride (NS Flush) 2 ml BID IV FLUSH Last administered on 12/11/16 21 :06; Start 12/11/16 at 21:00 Ondansetron HCl (Zofran Inj) 4 mg Q6H PRN IVP NAUSEA OR VOMITING; Start at 20:30 Acetaminophen (Tylenol) 650 mg Q6H PRN PO Headache, fever, pain 1-4; Start at 20:30 Morphine Sulfate (Morphine Inj) 2 mg Q3H PRN IV PUSH breakthrough pain Last administered on 12/12/16 06:25; Start 12/11/16 at 20:30; Stop 12/12/16 at 08 :34; Status DC Senna/Docusate Sodium (Sonal-Colace) 1 tab BID PO Last administered on 09:39; Start 12/11/16 at 21:00 Magnesium Hydroxide (Milk Of Magnesia Liq) 30 ml Q12H PRN PO Mild constipation ; Start 12/11/16 at 20:30 Sennosides (Senokot) 17.2 mg Q12H PRN PO Moderate constipation; Start at 20:30 Bisacodyl (Dulcolax Supp) 10 mg DAILY PRN RECTAL SEVERE CONSITIPATION; Start 12/11/16 at 20:30 Lactulose (Lactulose Liq) 30 ml DAILY PRN PO SEVERE CONSITIPATION; Start 12/11 at 20:30 Oxycodone HCl (Roxicodone) 10 mg Q4H PRN PO PAIN 3-10; Start 12/11/16 at 20:30 ; Stop 12/12/16 at 08:34; Status DC Levothyroxine Sodium (Synthroid) 112 mcg DAILY@0600 PO Last administered on 06:19; Start 12/12/16 at 06:00 Calcium Carbonate (Tums Chew) 500 mg Q2H PRN CHEW heartburn Last administered on 12/12/16 03:35; Start 12/12/16 at 03:30 Hydromorphone HCl (Dilaudid Pf Inj) 1 mg ONCE ONCE IV PUSH Last administered on 12/12/16 09:39; Start 12/12/16 at 08:30; Stop 12/12/16 at 09:00; Status DC Oxycodone/ Acetaminophen (Percocet 10-325 Mg) 1 tab Q6H PRN PO PAIN SCALE 5 TO 10; Start 12/12/16 at 08:30 Hydromorphone HCl (Dilaudid Pf Inj) 0.5 mg Q4H PRN IV PUSH BREAKTHROUGH PAIN; Start 12/12/16 at 08:30 Family History Reviewed. It was noncontributiory felton this admission Social History Occasional alcohol. Negative for tobacco or drugs. No illicit drug use Physical Exam Vital Signs Vital Signs Date Time Temp Pulse Resp B/P (MAP) Pulse Ox O2 Delivery O2 Flow Rate FiO2 12/12/16 11:41 97.5 86 18 171/80 (110) 97 12/12/16 07:58 155/79 (104) 12/12/16 07:52 97.7 87 18 169/94 (119) 98 12/12/16 03:29 98.2 78 18 158/86 (110) 95 12/12/16 00:23 98.2 77 18 155/72 (99) 93 12/11/16 20:04 79 18 146/84 (104) 95 Room Air 12/11/16 17:24 97.8 88 20 160/65 (96) 93 Room Air Physical Exam The patient is alert, awake and oriented to time, place and person. Speech is fluent. Higher cognitive functions are normal. Cranial nerve examination demonstrates the pupils to be equal, round, and reactive to light. Extra-ocular movements are intact. Facial motor and sensory function are normal and symmetrical. Gross hearing is intact, bilaterally. The uvula is midline and elevates symmetrically with the soft palate. Sternocleidomastoid and trapezius muscles have normal and symmetrical strength. Other cranial nerves are intact. Neck is soft and supple. Cervical spine has a full range of motion in anterior flexion, extension, lateral bending, and rotation without pain. There is no tenderness to palpation to the spinous processes or paraspinal muscles. Muscle testing reveals normal bulk and tone overall without rigidity, spasticity , fasciculations, or atrophy. Muscle strength is 5/5 in all muscle groups of both upper extremities including deltoid, biceps, triceps, brachioradialis, wrist extension and carpenter mate. In the lower extremities, strength is 5/5 in both iliopsoas, quadriceps, hamstrings, plantar flexion, with a chronic right foot drop, 1/5 dorsiflexion of right foot and 4+/5 on the left Sensory examination is intact to light touch and sharp/dull discrimination in both upper lower extremities and decreased in right S1 and L5 dermatome Deep tendon reflexes are 2+ and symmetrical in the biceps, triceps, and brachioradialis, bilaterally, in the upper extremities. In the lower extremities , the patellar are 2+, and Achilles are absent bilaterally. There is a bilateral plantar flexion response. Hoffmanns sign is negative. There is no clonus Cerebellar examination is intact to [id number] test, rapid rhythmic alternating motion. There is no dysmetria, dysdiadochokinesia, truncal ataxia, or tremor. Laboratory Laboratory Tests Test 12/11/16 18:15 12/11/16 22:18 12/12/16 04:20 12/12/16 04:28 White Blood Count 6.3 5.2 Red Blood Count 3.85 3.88 Hemoglobin 12.7 12.6 Hematocrit 36.6 37.0 Mean Corpuscular Volume 95.0 95.4 Mean Corpuscular Hemoglobin 33.0 32.6 Mean Corpuscular Hemoglobin Concent 34.7 34.1 Red Cell Distribution Width 13.9 13.5 Platelet Count 323 329 Mean Platelet Volume 7.9 7.6 Neutrophils (%) (Auto) 71.8 91.7 Lymphocytes (%) (Auto) 18.7 7.0 Monocytes (%) (Auto) 7.1 1.2 Eosinophils (%) (Auto) 1.2 0.0 Basophils (%) (Auto) 1.2 0.1 Neutrophils # (Auto) 4.6 4.8 Lymphocytes # (Auto) 1.2 0.4 Monocytes # (Auto) 0.5 0.1 Eosinophils # (Auto) 0.1 0.0 Basophils # (Auto) 0.1 0.0 CBC Comment DIFF FINAL DIFF FINAL Differential Comment Blood Urea Nitrogen 23 22 Creatinine 1.25 1.12 Random Glucose 84 110 Total Protein 7.0 6.7 Albumin 4.0 3.6 Calcium Level 9.5 9.4 Alkaline Phosphatase 75 73 Aspartate Amino Transf (AST/SGOT) 34 31 Alanine Aminotransferase (ALT/SGPT) 28 24 Total Bilirubin 0.8 0.8 Sodium Level 138 139 Potassium Level 4.1 4.6 Chloride Level 106 105 Carbon Dioxide Level 23.0 25.1 Anion Gap 9 9 Estimat Glomerular Filtration Rate 56 64 Urine Color YELLOW Urine Turbidity CLEAR Urine pH 5.5 Urine Specific [place] 1.019 Urine Protein NEG Urine Glucose (UA) NEG Urine Ketones TRACE Urine Occult Blood NEG Urine Nitrite NEG Urine Bilirubin NEG Urine Urobilinogen LESS THAN 2.0 Urine Leukocyte Esterase NEG Urine WBC LESS THAN 1 Urine Mucus FEW Microscopic Urinalysis Comment CULT NOT INDICATED Result Diagram: 12/12/168 12/12/16419 Imaging MRI was reviewed Attending Statement Neuro. L3-4 spondylolisthesis adjacent to a L4-5 fusion. There is also severe degenerative disk disease at L5-S1. Mr callaway has clear clinical evidence of right S1 radiculopathy. there is no clinical signs of L4 radiculopathy. I suspect his intractable pain comes from the abnormalities at L5-S1. The alternatives of treatment have been discussed. I recommend pain management with CAMILLE follow by physical therapy I will obtain a CT of the lumbar spine as well as flexion-extension xrays of the lumbar spine. I suspect that one screw at L4 is inside the spinal canal, compromising the neural structures acetaminophen/cooling blanket as needed for temperature greater than 100.4 Narcotic analgesics for pain control respiratory aggressive pulmonary toilette, nasotracheal suction, and breathing treatments with nebulizers. Nutrition. Oral diet Renal. monitor closely urine output, BUN and creatinine Obrien. Monitor intake and output. Monitor electrolytes and replace as indicated per ICU electrolyte replacement protocol. ENDO:Monitor bedside glucose and initiate low-dose insulin sliding scale as indicated for glucose greater than 180 Protonix for stress ulcer prophylaxis Wagner hosleanne and SCD's for DVT prophylaxis. Further recommendations depending on her clinical evolution and follow up radiological; studies Chino Mancilla MD Dec 12, 2016 12:17
[2016-12-13] MEDS: oxyCODONE/ACETAMINOPHEN 10 MG/325 MG TAB PO PRN ×2 (00:25→19:02)
[2016-12-13] MEDS: SODIUM CHLOR 0.9% 1000 ML INJ 1,000 ML IV SCH ×3 (00:26→20:24)
[2016-12-13 03:55] VITALS: BP 132/65; PULSE 79; RESP 17; TEMP 98.4; O2SAT 99
[2016-12-13] MEDS: LEVOTHYROXINE SODIUM 112 MCG TAB PO SCH (05:05)
[2016-12-13] MEDS: DOCUSATE SODIUM 50 MG/SENNA 8.6 MG TAB PO SCH ×2 (08:04→20:24)
[2016-12-13] MEDS: SODIUM CHLORIDE 0.9% FLUSH 10 ML FLUSH IV FLUSH SCH ×2 (08:04→20:23)
[2016-12-13] MEDS: methylPREDNISolone SOD SUCC 40 MG/1 ML VIAL IV PUSH SCH ×2 (08:04→20:24)
[2016-12-13 08:34] VITALS: BP 167/115; PULSE 75; RESP 18; TEMP 97.5; O2SAT 95
[2016-12-13 10:56] VITALS: BP 132/69; PULSE 55; RESP 20; TEMP 97.8; O2SAT 96
[2016-12-13 14:46] VITALS: BP 164/87; PULSE 71; RESP 20; TEMP 97.6; O2SAT 96
--- NOTE | 2016-12-13 17:47 | HHI.PR ---
Subjective Remarks Follow up for back pain and right leg pain. Patient remains in significant pain. Unable to move his right leg much. No fever or chills. Objective Vitals Vital Signs Date Time Temp Pulse Resp B/P (MAP) Pulse Ox O2 Delivery O2 Flow Rate FiO2 12/13/16 14:46 97.6 71 20 164/87 (112) 96 12/13/16 10:56 97.8 55 20 132/69 (90) 96 12/13/16 08:34 97.5 75 18 167/115 (132) 95 12/13/16 03:55 98.4 79 17 132/65 (87) 99 12/12/16 23:48 98.5 81 17 128/61 (83) 99 12/12/16 19:50 98.2 79 17 126/61 (82) 98 I/O 12/12/16 12/12/16 12/12/16 12/13/16 12/13/16 12/13/16 07:00 15:00 23:00 07:00 15:00 23:00 Intake Total 1000 ml 1000 ml Output Total 950 ml 700 ml Balance 1000 ml -950 ml 300 ml Intake IV Total 1000 ml 1000 ml Output Urine Total 950 ml 700 ml Result Diagram: 12/12/16 0428 12/12/16 0420 Imaging Last Impressions Lumbar Spine MRI 12/11/16 0000 Signed Impressions: Service Date/Time: Sunday, December 11, 2016 18:46 - CONCLUSION: 1. At L3-4 there is a grade 1 retrolisthesis resulting in moderate stenosis of the canal at the lateral recesses and moderate bilateral foraminal stenosis. 2. At L4-5 there is fusion with a residual grade 1 anterolisthesis and mild lateral recess and foraminal encroachment bilaterally. 3. At L5-S1 there is a disc bulge and facet arthropathy with moderate right foraminal stenosis and some flattening of the right L5 nerve root. 4. No acute fracture. Conus intact. Charly Nichole MD Objective Remarks GENERAL: Alert, oriented 3, NAD. SKIN: Warm and dry. HEAD: Normocephalic. EYES: No scleral icterus. No injection or drainage. NECK: Supple, trachea midline. No JVD or lymphadenopathy. CARDIOVASCULAR: Regular rate and rhythm without murmurs, gallops, or rubs. RESPIRATORY: Breath sounds equal bilaterally. No accessory muscle use. GASTROINTESTINAL: Abdomen soft, non-tender, nondistended. MUSCULOSKELETAL: No cyanosis, or edema. Right leg pain on movements. BACK: Nontender without obvious deformity. No CVA tenderness. Procedures None A/P Problem List: (1) Recurrent falls ICD Code: R29.6 - Repeated falls (2) Intractable back pain ICD Code: M54.9 - Dorsalgia, unspecified Status: Acute (3) Dehydration ICD Code: E86.0 - Dehydration (4) HTN (hypertension) ICD Code: I10 - Essential (primary) hypertension Assessment and Plan This is a 76-year-old male with a PMH of Anxiety, Depression, HTN, Hyperlipidemia, Hypothyroidism and Sleep Apnea who presented to the ER with complaints of severe back pain in addition to right leg pain x1 wk prior to this admission. Denies any injury or trauma. On arrival, BP 160/65, HR 88, O2 sat 93% on RA, Afebrile. CBC unremarkable. Chemistry essentially unremarkable except for GFR 56. MRI L-spine with L3-L4 grade 1 retrolisthesis resulting in moderate stenosis and moderate bilateral foraminal stenosis, L4-L5 with fusion and residual grade 1 anterolisthesis, L5-S1 disc bulge with moderate right foraminal stenosis and flattening of right L5 nerve root. - L3-L4 spondylolisthesis - Neurosurgery recommends non-surgical management with pain management, PT. - Will keep patient on acetaminophen, Percocet, Dilaudid IV when necessary for pain management. - Physical therapy consulted. - Continue Solu-Medrol 40 mg IV every 12 hours. Continue diazepam 5 mg by mouth every 8 hours for muscle spasm. - Discussed with Neurosurgery. We will consult IR for Epidural Steroid Injection. - Hypothyroidism - continue levothyroxine 112 g daily. - Hypertension - possibly due to pain. Will monitor to see if he needs any antihypertensives. Full code. SCDs. Satya Sumner DO Dec 13, 2016 5:47 pm
[2016-12-13 19:30] VITALS: BP 161/80; PULSE 84; RESP 20; TEMP 98; O2SAT 97
[2016-12-13 23:22] VITALS: BP 188/85; PULSE 79; RESP 18; TEMP 97.7; O2SAT 97
[2016-12-14] VITALS (9 sets, daily range): BP systolic 137–180; BP diastolic 80–99; PULSE 61–96; RESP 16–19; TEMP 97.7–98.5; O2SAT 92–98
[2016-12-14] MEDS: SODIUM CHLOR 0.9% 1000 ML INJ 1,000 ML IV SCH ×2 (03:56→18:26)
[2016-12-14] MEDS ORDERED: cloNIDine HCL 0.1 MG TAB PO ONE (04:00)
[2016-12-14] MEDS: LEVOTHYROXINE SODIUM 112 MCG TAB PO SCH (05:10)
[2016-12-14] MEDS: methylPREDNISolone SOD SUCC 40 MG/1 ML VIAL IV PUSH SCH ×2 (09:03→21:45)
[2016-12-14] MEDS: SODIUM CHLORIDE 0.9% FLUSH 10 ML FLUSH IV FLUSH SCH ×2 (09:03→21:45)
[2016-12-14] MEDS: DOCUSATE SODIUM 50 MG/SENNA 8.6 MG TAB PO SCH ×2 (09:03→21:00)
--- NOTE | 2016-12-14 12:21 | HHI.PR ---
Subjective Remarks Follow up for back pain and right leg pain. Patient complains of persistent right lower extremity pain. Sitting in his chair. Objective Vitals Vital Signs Date Time Temp Pulse Resp B/P (MAP) Pulse Ox O2 Delivery O2 Flow Rate FiO2 12/14/16 11:03 97.7 84 16 149/99 (116) 96 12/14/16 08:11 98.0 70 16 137/85 (102) 98 12/14/16 04:43 152/80 (104) 12/14/16 04:37 158/84 (108) 12/14/16 03:49 98.5 96 18 180/97 (124) 92 12/14/16 00:05 160/82 (108) 12/13/16 23:22 97.7 79 18 188/85 (119) 97 12/13/16 20:02 20 12/13/16 19:30 98.0 84 20 161/80 (107) 97 12/13/16 14:46 97.6 71 20 164/87 (112) 96 I/O 12/13/16 12/13/16 12/13/16 12/14/16 12/14/16 12/14/16 07:00 15:00 23:00 07:00 15:00 23:00 Intake Total 1000 ml 1767 ml Output Total 700 ml 250 ml 350 ml 350 ml Balance 300 ml -250 ml 1417 ml -350 ml Intake IV Total 1000 ml 1767 ml Output Urine Total 700 ml 250 ml 350 ml 350 ml Result Diagram: 12/12/16 0428 12/12/16 0420 Imaging Last Impressions Lumbar Spine MRI 12/11/16 0000 Signed Impressions: Service Date/Time: Sunday, December 11, 2016 18:46 - CONCLUSION: 1. At L3-4 there is a grade 1 retrolisthesis resulting in moderate stenosis of the canal at the lateral recesses and moderate bilateral foraminal stenosis. 2. At L4-5 there is fusion with a residual grade 1 anterolisthesis and mild lateral recess and foraminal encroachment bilaterally. 3. At L5-S1 there is a disc bulge and facet arthropathy with moderate right foraminal stenosis and some flattening of the right L5 nerve root. 4. No acute fracture. Conus intact. Charly Nichole MD Objective Remarks GENERAL: Alert, oriented 3, NAD. SKIN: Warm and dry. HEAD: Normocephalic. EYES: No scleral icterus. No injection or drainage. NECK: Supple, trachea midline. No JVD or lymphadenopathy. CARDIOVASCULAR: Regular rate and rhythm without murmurs, gallops, or rubs. RESPIRATORY: Breath sounds equal bilaterally. No accessory muscle use. GASTROINTESTINAL: Abdomen soft, non-tender, nondistended. MUSCULOSKELETAL: No cyanosis, or edema. Right leg pain on movements. BACK: Nontender without obvious deformity. No CVA tenderness. Procedures None A/P Problem List: (1) Recurrent falls ICD Code: R29.6 - Repeated falls (2) Intractable back pain ICD Code: M54.9 - Dorsalgia, unspecified Status: Acute (3) Dehydration ICD Code: E86.0 - Dehydration (4) HTN (hypertension) ICD Code: I10 - Essential (primary) hypertension Assessment and Plan This is a 76-year-old male with a PMH of Anxiety, Depression, HTN, Hyperlipidemia, Hypothyroidism and Sleep Apnea who presented to the ER with complaints of severe back pain in addition to right leg pain x1 wk prior to this admission. Denies any injury or trauma. On arrival, BP 160/65, HR 88, O2 sat 93% on RA, Afebrile. CBC unremarkable. Chemistry essentially unremarkable except for GFR 56. MRI L-spine with L3-L4 grade 1 retrolisthesis resulting in moderate stenosis and moderate bilateral foraminal stenosis, L4-L5 with fusion and residual grade 1 anterolisthesis, L5-S1 disc bulge with moderate right foraminal stenosis and flattening of right L5 nerve root. - L3-L4 spondylolisthesis - Neurosurgery recommends non-surgical management with pain management, PT. - Will keep patient on acetaminophen, Percocet, Dilaudid IV when necessary for pain management. - Physical therapy consulted. - Continue Solu-Medrol 40 mg IV every 12 hours. Continue diazepam 5 mg by mouth every 8 hours for muscle spasm. -Discussed with interventional radiology. Patient will likely undergo epidural steroid injection today. - Hypothyroidism - continue levothyroxine 112 g daily. - Hypertension - possibly due to pain. Will monitor to see if he needs any antihypertensives. Full code. SCDs. Discharge plan: Patient does not wish to go to SNF. Once epidural steroid injection is completed, patient will be reevaluated this afternoon for possible discharge. Satya Sumner DO Dec 14, 2016 12:21 pm
--- NOTE | 2016-12-14 12:54 | PD.RAD ---
Post Procedure Progress Note Pre Procedure Diagnosis: (1) Radiculopathy of leg Post Procedure Diagnosis: (1) Radiculopathy of leg Procedure Date: Dec 14, 2016 Supervising Radiologist: Jesús Monzon JR Proceduralist/Assist: Yoli Malone RT(R)(), RT Beny(R) Anesthesia: Local Plan of Activity Patient to Unit: Nursing Unit Patient Condition: Good See PACS Report for procedural detail/treatment Spinal Procedure Nerve Root Injection L5 Findings: Patient with L5 distribution radiculopathy. MRI of Lsp reviewed. Right L5 CAESAR performed. Jr. Nicolás,Jesús Dias MD Dec 14, 2016 12:54
--- NOTE | 2016-12-14 13:24 | RADRPT ---
EXAM DATE/TIME: 12/14/2016 12:23 [facility] COMPARISON: No previous studies available for comparison. INDICATIONS : <<Patient presents with right lower extremity pain. History of posterior fusion at L4-L5. As fall poi nt with Dr. Be. MEDICAL HISTORY : Anxiety Depression HTN Hyperlipidemia Hypothyroidism Sleep Apnea SURGICAL HISTORY : Cholecystectomy Back Surgery ENCOUNTER: Initial ACUITY: 2 months PAIN SCORE: 9/10 LOCATION: Right Leg and lower back pain. FLUORO TIME: <<2.2>> minutes IMAGE SERIES: 0 CONTRAST: <<1>> cc Omnipaque (iohexol) 300 ACCESS LEVEL: Right L5 MEDICATIONS: 1.) <<2>> cc Lidocaine IA 2.) <<2>> cc ropivicaine (Naropin) IA 3.) <<2>> mg triamcinolone (Kenalog) IA RESPONSE: Pre procedure pain level was 9/10. Post procedure pain level was 6/10. PROCEDURE : 1. Fluoroscopically guided nerve root injection. Clinical evaluation of the patient shows pain along the L5 distribution on the right. Denies any lowe r back pain. MRI of the lumbar spine was reviewed. Foraminal narrowing at L5 on the right. The risks, benefits and alternatives to the procedure were explained and verbal and written consent was obtaine d. The site was prepped in sterile fashion. Full sterile technique was used, including cap, mask, s terile gloves and gown and a large sterile sheet. Hand hygiene and 2% chlorhexidine and/or betadine/ alcohol prep was utilized per protocol for cutaneous antisepsis. The skin and subcutaneous tissues w ere infiltrated with local anesthetic solution. With fluoroscopic guidance the right L5 nerve root was localized and positive contrast was injected t o confirm epidural spread. Following this the prescribed medication was injected surrounding the ner ve root sleeve. The patient's preprocedure pain and post procedure pain levels were recorded. CONCLUSION: Uncomplicated fluoroscopically guided right L5 nerve root injection as above. Jesús Monzon Jr., MD on December 14, 2016 at 13:13 Board Certified Radiologist. This report was verified electronically.
[2016-12-14] MEDS: oxyCODONE/ACETAMINOPHEN 10 MG/325 MG TAB PO PRN (21:46)
[2016-12-15 04:02] VITALS: BP 142/55; PULSE 72; RESP 18; TEMP 97.5; O2SAT 95
[2016-12-15] MEDS: LEVOTHYROXINE SODIUM 112 MCG TAB PO SCH (06:27)
[2016-12-15] MEDS: SODIUM CHLOR 0.9% 1000 ML INJ 1,000 ML IV SCH (06:27)
[2016-12-15 07:10] VITALS: BP 162/83; PULSE 75; RESP 16; TEMP 97.8; O2SAT 95
[2016-12-15] MEDS: DOCUSATE SODIUM 50 MG/SENNA 8.6 MG TAB PO SCH ×2 (09:00→22:07)
--- NOTE | 2016-12-15 09:17 | HHI.PR ---
Subjective Remarks Follow up for back pain and right leg pain. Patient still has significant pain. He is unable to ambulate. He would like to get another evaluation by neurosurgery. No fever, chills. [facility] will not be able to accept him. And patient does not want to go to SNF. Objective Vitals Vital Signs Date Time Temp Pulse Resp B/P (MAP) Pulse Ox O2 Delivery O2 Flow Rate FiO2 12/15/16 07:10 97.8 75 16 162/83 (109) 95 12/15/16 04:02 97.5 72 18 142/55 (84) 95 12/14/16 23:44 98.3 61 19 165/83 (110) 96 12/14/16 22:46 12 12/14/16 19:37 98.3 73 18 155/93 (113) 97 12/14/16 16:08 97.9 73 16 147/81 (103) 97 12/14/16 11:03 97.7 84 16 149/99 (116) 96 I/O 12/14/16 12/14/16 12/14/16 12/15/16 12/15/16 12/15/16 07:00 15:00 23:00 07:00 15:00 23:00 Intake Total 1767 ml Output Total 350 ml 350 ml 250 ml 450 ml Balance 1417 ml -350 ml -250 ml -450 ml Intake IV Total 1767 ml Output Urine Total 350 ml 350 ml 250 ml 450 ml Result Diagram: 12/12/16 0428 12/12/16 0420 Imaging Last Impressions Nerve Block 12/14/16 0000 Signed Impressions: Service Date/Time: Wednesday, December 14, 2016 12:23 - CONCLUSION: Uncomplicated fluoroscopically guided right L5 nerve root injection as above. Jesús Monzon Jr., MD Lumbar Spine MRI 12/11/16 0000 Signed Impressions: Service Date/Time: Sunday, December 11, 2016 18:46 - CONCLUSION: 1. At L3-4 there is a grade 1 retrolisthesis resulting in moderate stenosis of the canal at the lateral recesses and moderate bilateral foraminal stenosis. 2. At L4-5 there is fusion with a residual grade 1 anterolisthesis and mild lateral recess and foraminal encroachment bilaterally. 3. At L5-S1 there is a disc bulge and facet arthropathy with moderate right foraminal stenosis and some flattening of the right L5 nerve root. 4. No acute fracture. Conus intact. Charly Nichole MD Objective Remarks GENERAL: Alert, oriented 3, NAD. SKIN: Warm and dry. HEAD: Normocephalic. EYES: No scleral icterus. No injection or drainage. NECK: Supple, trachea midline. No JVD or lymphadenopathy. CARDIOVASCULAR: Regular rate and rhythm without murmurs, gallops, or rubs. RESPIRATORY: Breath sounds equal bilaterally. No accessory muscle use. GASTROINTESTINAL: Abdomen soft, non-tender, nondistended. MUSCULOSKELETAL: No cyanosis, or edema. Right leg pain on movements. BACK: Nontender without obvious deformity. No CVA tenderness. Procedures None A/P Problem List: (1) Recurrent falls ICD Code: R29.6 - Repeated falls (2) Intractable back pain ICD Code: M54.9 - Dorsalgia, unspecified Status: Acute (3) Dehydration ICD Code: E86.0 - Dehydration (4) HTN (hypertension) ICD Code: I10 - Essential (primary) hypertension Assessment and Plan This is a 76-year-old male with a PMH of Anxiety, Depression, HTN, Hyperlipidemia, Hypothyroidism and Sleep Apnea who presented to the ER with complaints of severe back pain in addition to right leg pain x1 wk prior to this admission. Denies any injury or trauma. On arrival, BP 160/65, HR 88, O2 sat 93% on RA, Afebrile. CBC unremarkable. Chemistry essentially unremarkable except for GFR 56. MRI L-spine with L3-L4 grade 1 retrolisthesis resulting in moderate stenosis and moderate bilateral foraminal stenosis, L4-L5 with fusion and residual grade 1 anterolisthesis, L5-S1 disc bulge with moderate right foraminal stenosis and flattening of right L5 nerve root. - L3-L4 spondylolisthesis - Neurosurgery recommended non-surgical management with pain management, PT and epidural steroid injection (CAMILLE). - Will keep patient on acetaminophen, Percocet, Dilaudid IV when necessary for pain management. - Physical therapy following. - Continue Solu-Medrol 40 mg IV every 12 hours. Continue diazepam 5 mg by mouth every 8 hours for muscle spasm. - Patient received CAMILLE by IR. Unfortunately, his pain is not improved. - Discussed with neurosurgery. They will do further imaging studies and consider possible surgical intervention. - D/C IV fluid. - Hypothyroidism - continue levothyroxine 112 g daily. - Hypertension - Currently normotensive (BP 148/81). Full code. SCDs. Satya Sumner DO Dec 15, 2016 9:16 am
[2016-12-15 11:48] VITALS: BP 148/81; PULSE 80; RESP 16; TEMP 98; O2SAT 97
--- NOTE | 2016-12-15 12:59 | RADRPT ---
EXAM DATE/TIME: 12/15/2016 12:25 [facility] COMPARISON: MRI LUMBAR SPINE W/O CONTRAST, December 11, 2016, 18:46. INDICATIONS : Right leg numbness. RADIATION DOSE: 35.86 CTDIvol (mGy) MEDICAL HISTORY : Cardiovascular disease. SURGICAL HISTORY : Appendectomy. Cholecystectomy.Lumbar surgery ENCOUNTER: Initial ACUITY: 1 day PAIN SCALE: 4/10 LOCATION: Lumbar TECHNIQUE: Volumetric scanning of the lumbar spine was performed. Multiplanar reconstructions in the sagittal, coronal and oblique axial planes were performed. Using automated exposure control and adjustment of the mA and/or kV according to patient size, radiation dose was kept as low as reasonably achievable t o obtain optimal diagnostic quality images. DICOM format image data is available electronically for review and comparison. FINDINGS: VERTEBRAE: The vertebral bodies are intact. There is mild scoliosis. DISCS: Degenerative disc changes are present greatest at the L3-4 level with disc space narrowing, scle rosis and hypertrophic change. There are vacuum disc phenomena at this level and at L5-S1. ALIGNMENT: Is a mild grade 1 anterior spondylolisthesis of L4 and L5 again noted is 5-6 mm. There is mild r etrolisthesis of L3 on L4 which is stable as well. Bilateral nonobstructing renal calculi are noted. T12-L1: The thecal sac has a normal diameter. No evidence of disc bulge or protrusion. The neural foramina are patent bilaterally. L1-L2: The thecal sac has a normal diameter. No evidence of disc bulge or protrusion. The neural foramina are patent bilaterally. L2-L3: There is mild annular disc bulge with mild flattening of the thecal sac and neural foramina. There ar e mild degenerative changes involving the facet joints and there is mild central canal stenosis.. L3-L4: Degenerative disc change with disc osteophyte complex with flattening of anterior thecal sac and narr owing of the neural foramina. Vacuum disc phenomena is present. Degenerative change involving facet j oints. The patient is status post right laminectomy. Severe is borderline central canal stenosis. L4-L5: Mild disc osteophyte complex with mild flattening of the thecal sac and narrowing the neural foramina . The patient is status post fusion with bilateral pedicle screws and posterior fixation rods. There is streak artifact. Thecal sac is not well visualized. There is lateral recess stenosis with no defin ite central canal stenosis. L5-S1: The thecal sac has a normal diameter. No evidence of disc bulge or protrusion. The neural foramina are patent bilaterally. Degenerative changes R. noted involving the facet joints. CONCLUS Stable mild grade 1 anterior spondylolisthesis of L4 on L5 and stable mild retrolisthesis of L3 on L4 . Status post remote fusion at L4-5 with bilateral pedicle screws and posterior fixation rods. Mild central canal stenosis at L2-3 secondary to disc bulge and degenerative changes involving the fa cets. Lateral recess stenosis L4-5 with no definite central canal stenosis. Status post right laminectomy at L3-4. Degenerative disc change greatest at the L3-4 level. Palmer Harris MD on December 15, 2016 at 12:46 Board Certified Radiologist. This report was verified electronically.
[2016-12-15] MEDS: methylPREDNISolone SOD SUCC 40 MG/1 ML VIAL IV PUSH SCH ×2 (14:23→22:06)
[2016-12-15] MEDS: SODIUM CHLORIDE 0.9% FLUSH 10 ML FLUSH IV FLUSH SCH ×2 (14:23→22:07)
[2016-12-15 15:32] VITALS: BP 150/79; PULSE 73; RESP 18; TEMP 97.2; O2SAT 96
--- NOTE | 2016-12-15 17:05 | RADRPT ---
EXAM DATE/TIME: 12/15/2016 15:56 [facility] COMPARISON: CHEST SINGLE AP, November 29, 2013, 19:35. INDICATIONS : Degenerative disc disease MEDICAL HISTORY : Cardiovascular disease SURGICAL HISTORY : Appendectomy. Cholecystectomy.Lumbar surgery ENCOUNTER: Initial ACUITY: 1 day PAIN SCORE: 8/10 LOCATION: Lumbar spine FINDINGS: Lateral flexion and extension spine series is provided. There is fusion hardware across the L4/5 leve l. Flexion and extension views demonstrate diffuse segment to be stable. There are degenerated disc throughout the remainder of the lumbar spine. No acute fracture or destructive lesion is seen. CONCLUSION: 1. Stable alignment of the lumbar spine with flexion and extension. 2. Advanced degenerative changes. Tate Camarillo MD on December 15, 2016 at 17:02 Board Certified Radiologist. This report was verified electronically.
[2016-12-15 20:40] VITALS: BP 160/94; PULSE 96; RESP 20; TEMP 96.4; O2SAT 97
[2016-12-15] MEDS ORDERED: CHLORHEXIDINE GLUCONATE 4% SOLN 120 ML BTL TOP SCH (21:00)
[2016-12-16] MEDS ORDERED: INSULIN HUMAN REGULAR 1,000 UNITS/10 ML VIAL SQ PRN (00:45)
[2016-12-16] MEDS ORDERED: SODIUM CHLORID 0.9% 500 ML IV PRN (00:45)
[2016-12-16] MEDS ORDERED: METOPROLOL TARTRATE 25 MG TAB PO PRN (00:45)
[2016-12-16] MEDS ORDERED: POVIDONE IODINE 5% (ANTISEPSIS KIT) 4 APPLICATIONS EACH NARE PRN (00:45)
[2016-12-16] MEDS ORDERED: LACTATED RINGER'S 1000 ML IV PRN (00:45)
[2016-12-16] MEDS ORDERED: CHLORHEXIDINE GLUCONATE 2 % 1 PACK (2 CLOTHS) TOPICAL PRN (00:45)
[2016-12-16 01:00] VITALS: BP 156/85; PULSE 65; RESP 18; TEMP 96.2; O2SAT 97
[2016-12-16] MEDS: CALCIUM CARBONATE 500 MG CHEWABLE TAB CHEW PRN ×2 (02:21→22:35)
[2016-12-16 05:00] VITALS: BP 134/83; PULSE 96; RESP 18; TEMP 97.4; O2SAT 97
[2016-12-16] MEDS ORDERED: VANCOMYCIN INJ 1,000 MG in SODIUM CHLOR 0.9% 250 ML INJ 250 ML IV ONE (06:00)
[2016-12-16] MEDS: LEVOTHYROXINE SODIUM 112 MCG TAB PO SCH (06:27)
[2016-12-16] MEDS ORDERED: ACETAMINOPHEN 1000 MG/100 ML 100 ML IV ONE (07:06)
[2016-12-16] MEDS ORDERED: PROPOFOL 500 MG/50 ML INJ 150 ML ONE (07:07)
[2016-12-16] MEDS ORDERED: HEPARIN SODIUM - SQ 10,000 UNITS/ML VIAL ONE (07:26)
[2016-12-16] MEDS ORDERED: THROMBIN (TOPICAL) 5,000 UNIT VIAL ONE (07:27)
[2016-12-16] MEDS ORDERED: BUPIVACAINE HCL PF 0.5% 30 ML VIAL ONE (07:27)
[2016-12-16] MEDS ORDERED: ceFAZolin 2 GM PREMIX 100 ML ONE (07:27)
[2016-12-16] MEDS ORDERED: GELFOAM SIZE 100 ONE (07:27)
[2016-12-16] MEDS ORDERED: GENTAMICIN SULFATE 80 MG/2 ML VIAL ONE (07:27)
[2016-12-16 08:00] VITALS: BP 129/81; PULSE 66; RESP 18; TEMP 96.6; O2SAT 96
[2016-12-16] MEDS: SODIUM CHLORIDE 0.9% FLUSH 10 ML FLUSH IV FLUSH SCH ×2 (08:30→21:06)
[2016-12-16] MEDS ORDERED: FAMOTIDINE 20 MG/2 ML VIAL ONE (08:40)
[2016-12-16] MEDS ORDERED: ARTIFICIAL TEARS OPTH OINT 3.5 APPLIC/3.5 GM TUBO ONE (08:41)
[2016-12-16] MEDS ORDERED: VANCOMYCIN HCL 1000 MG VIAL ONE ×2 (08:41→09:22)
[2016-12-16] MEDS ORDERED: SODIUM CHLOR 0.9% 250 ML INJ 250 ML ONE (08:41)
[2016-12-16] MEDS: DOCUSATE SODIUM 50 MG/SENNA 8.6 MG TAB PO SCH ×2 (09:00→21:07)
[2016-12-16] MEDS: methylPREDNISolone SOD SUCC 40 MG/1 ML VIAL IV PUSH SCH ×2 (09:00→21:07)
--- NOTE | 2016-12-16 09:08 | HHI.NSPN ---
Note Status Status: Progress Note Interval History Diagnosis THIS NOTE CORRESPONDS TO MY ASSESSMENT ON 12/15 DURING ROUNDS Interval History THIS NOTE CORRESPONDS TO MY ASSESSMENT ON 12/15 DURING ROUNDS This is a 76-year-old male with history of of Anxiety, Depression, HTN, Hyperlipidemia, Hypothyroidism and Sleep Apnea who presented to the ER with complaints of severe back pain and right leg pain increasing in severity for the past wk. Denies injury or trauma. Was seen at [facility] 12/09/16 for similar complaints, d/c'd home w/ Rx for Norflex and Percocet w/ Ortho follow up. He returned to [facility] several hours later on 12/09/16 w/ ongoing complaints. CT Abd/Pelvis w/ no acute findings. Pelvis X-ray did not show evidence of bony pathology per records. D/c'd home once again, however returns now w/ ongoing severe pain, also notes radicular, shooting pain down RLE. Previously following w/ Dr. Andi Espinal s/p Lumbar Sx 5yrs ago, has a follow up appt in 1mo. On arrival, BP 160/65, HR 88, O2 sat 93% on RA, Afebrile. CBC unremarkable. Chemistry essentially unremarkable except for GFR 56. MRI L- spine with L3-L4 grade 1 retrolisthesis resulting in moderate stenosis and moderate bilateral foraminal stenosis, L4-L5 with fusion and residual grade 1 anterolisthesis, L5-S1 disc bulge with moderate right foraminal stenosis and flattening of right L5 nerve root. Dr. Norris was consulted by ER physician, recommended further eval by Neurosurgery if needed. He received multiple doses of pain medication in ER w/ minimal improvement. Neurosurgical consultation was requested 12/15. Called by Dr Sumner to reevaluater for surgery. He continues to suffer from intractable pain. He received an epidural steroid injection without relief , patient requesting surgical intervention. has great deal of difficulty getting out of bed with severe right S1 radiculopathy. Labs, Micro, & Vital Signs Results THIS NOTE CORRESPONDS TO MY ASSESSMENT ON 12/15 DURING ROUNDS Date Time Temp Pulse Resp B/P (MAP) Pulse Ox O2 Delivery O2 Flow Rate FiO2 12/16/16 05:00 97.4 96 18 134/83 (100) 97 12/16/16 01:00 96.2 65 18 156/85 (108) 97 12/15/16 20:40 96.4 96 20 160/94 (116) 97 12/15/16 15:32 97.2 73 18 150/79 (102) 96 12/15/16 11:48 98.0 80 16 148/81 (103) 97 Constitutional THIS NOTE CORRESPONDS TO MY ASSESSMENT ON 12/15 DURING ROUNDS Vital Signs Date Time Temp Pulse Resp B/P (MAP) Pulse Ox O2 Delivery O2 Flow Rate FiO2 12/16/16 05:00 97.4 96 18 134/83 (100) 97 12/16/16 01:00 96.2 65 18 156/85 (108) 97 12/15/16 20:40 96.4 96 20 160/94 (116) 97 12/15/16 15:32 97.2 73 18 150/79 (102) 96 12/15/16 11:48 98.0 80 16 148/81 (103) 97 Physical Exam THIS NOTE CORRESPONDS TO MY ASSESSMENT ON 12/15 DURING ROUNDS The patient is alert, awake and oriented to time, place and person. Speech is fluent. Higher cognitive functions are normal. Cranial nerve examination demonstrates the pupils to be equal, round, and reactive to light. Extra-ocular movements are intact. Facial motor and sensory function are normal and symmetrical. Gross hearing is intact, bilaterally. The uvula is midline and elevates symmetrically with the soft palate. Sternocleidomastoid and trapezius muscles have normal and symmetrical strength. Other cranial nerves are intact. Neck is soft and supple. Cervical spine has a full range of motion in anterior flexion, extension, lateral bending, and rotation without pain. There is no tenderness to palpation to the spinous processes or paraspinal muscles. Muscle testing reveals normal bulk and tone overall without rigidity, spasticity , fasciculations, or atrophy. Muscle strength is 5/5 in all muscle groups of both upper extremities including deltoid, biceps, triceps, brachioradialis, wrist extension and direct service worker. In the lower extremities, strength is 5/5 in both iliopsoas, quadriceps, hamstrings, plantar flexion, with a chronic right foot drop, 1/5 dorsiflexion of right foot and 4+/5 on the left Sensory examination is intact to light touch and sharp/dull discrimination in both upper lower extremities and decreased in right S1 and L5 dermatome Deep tendon reflexes are 2+ and symmetrical in the biceps, triceps, and brachioradialis, bilaterally, in the upper extremities. In the lower extremities , the patellar are 2+, and Achilles are absent bilaterally. There is a bilateral plantar flexion response. Hoffmanns sign is negative. There is no clonus Cerebellar examination is intact to [id number] test, rapid rhythmic alternating motion. There is no dysmetria, dysdiadochokinesia, truncal ataxia, or tremor. Medications Current Medications THIS NOTE CORRESPONDS TO MY ASSESSMENT ON 12/15 DURING ROUNDS Current Medications Sodium Chloride 1,000 ml @ 999 mls/hr BOLUS ONCE IV Last administered on 18:32; Start 12/11/16 at 18:00; Stop 12/11/16 at 19:00; Status DC Morphine Sulfate (Morphine Inj) 4 mg ONCE ONCE IV PUSH ; Start 12/11/16 at 18: 00; Stop 12/11/16 at 18:11; Status DC Ondansetron HCl (Zofran Inj) 4 mg ONCE ONCE IV PUSH Last administered on 12/11 18:32; Start 12/11/16 at 18:00; Stop 12/11/16 at 18:09; Status DC Hydromorphone HCl (Dilaudid Pf Inj) 0.5 mg ONCE ONCE IV PUSH Last administered on 12/11/16 18:33; Start 12/11/16 at 18:15; Stop 12/11/16 at 18 :16; Status DC Dexamethasone Sodium Phosphate (Decadron Inj) 8 mg ONCE ONCE IV PUSH Last administered on 12/11/16 19:22; Start 12/11/16 at 19:30; Stop 12/11/16 at 19 :31; Status DC Orphenadrine Citrate (Norflex Inj) 60 mg ONCE ONCE IM Last administered on 19:39; Start 12/11/16 at 19:45; Stop 12/11/16 at 19:46; Status DC Diazepam (Valium) 5 mg Q8H PRN PO MUSCLE SPASM Last administered on 12/12/16 15:46; Start 12/11/16 at 20:30 Methylprednisolone Sodium Succinate (SoluMEDROL INJ) 40 mg Q12HR IV PUSH Last administered on 12/15/16 22:06; Start 12/12/16 at 09:00 Sodium Chloride 1,000 ml @ 100 mls/hr Q10H IV Last administered on 12/15/16 06:27; Start 12/11/16 at 20:30; Stop 12/15/16 at 12:58; Status DC Sodium Chloride (NS Flush) 2 ml UNSCH PRN IV FLUSH FLUSH AFTER USING IV ACCESS ; Start 12/11/16 at 20:30 Sodium Chloride (NS Flush) 2 ml BID IV FLUSH Last administered on 12/15/16 22 :07; Start 12/11/16 at 21:00 Ondansetron HCl (Zofran Inj) 4 mg Q6H PRN IVP NAUSEA OR VOMITING; Start at 20:30 Acetaminophen (Tylenol) 650 mg Q6H PRN PO Headache, fever, pain 1-4; Start at 20:30 Morphine Sulfate (Morphine Inj) 2 mg Q3H PRN IV PUSH breakthrough pain Last administered on 12/12/16 06:25; Start 12/11/16 at 20:30; Stop 12/12/16 at 08 :34; Status DC Senna/Docusate Sodium (Sonal-Colace) 1 tab BID PO Last administered on 22:07; Start 12/11/16 at 21:00 Magnesium Hydroxide (Milk Of Magnesia Liq) 30 ml Q12H PRN PO Mild constipation ; Start 12/11/16 at 20:30 Sennosides (Senokot) 17.2 mg Q12H PRN PO Moderate constipation; Start at 20:30 Bisacodyl (Dulcolax Supp) 10 mg DAILY PRN RECTAL SEVERE CONSITIPATION; Start 12/11/16 at 20:30 Lactulose (Lactulose Liq) 30 ml DAILY PRN PO SEVERE CONSITIPATION; Start 12/11 at 20:30 Oxycodone HCl (Roxicodone) 10 mg Q4H PRN PO PAIN 3-10; Start 12/11/16 at 20:30 ; Stop 12/12/16 at 08:34; Status DC Levothyroxine Sodium (Synthroid) 112 mcg DAILY@0600 PO Last administered on 06:27; Start 12/12/16 at 06:00 Calcium Carbonate (Tums Chew) 500 mg Q2H PRN CHEW heartburn Last administered on 12/16/16 02:21; Start 12/12/16 at 03:30 Hydromorphone HCl (Dilaudid Pf Inj) 1 mg ONCE ONCE IV PUSH Last administered on 12/12/16 09:39; Start 12/12/16 at 08:30; Stop 12/12/16 at 09:00; Status DC Oxycodone/ Acetaminophen (Percocet 10-325 Mg) 1 tab Q6H PRN PO PAIN SCALE 5 TO 10 Last administered on 12/14/16 21:46; Start 12/12/16 at 08:30 Hydromorphone HCl (Dilaudid Pf Inj) 0.5 mg Q4H PRN IV PUSH BREAKTHROUGH PAIN; Start 12/12/16 at 08:30 Clonidine (Catapres) 0.1 mg ONCE ONCE PO Last administered on 12/14/16 03:53 ; Start 12/14/16 at 04:00; Stop 12/14/16 at 04:01; Status DC Iohexol (Omnipaque 300 Inj) 1 ml STK-MED ONCE IT Last administered on 12:35; Start 12/11/16 at 20:02; Stop 12/14/16 at 12:48; Status DC Vancomycin HCl 1000 mg/Sodium Chloride 250 ml @ 250 mls/hr ONCE ONCE IV ; Start 12/16/16 at 06:00; Stop 12/16/16 at 06:59; Status DC Chlorhexidine Gluconate (Hibiclens 4% Top Soln) 1 applic HS TOP Last administered on 12/15/16 23:39; Start 12/15/16 at 21:00; Stop 12/17/16 at 21 :01 Lactated Ringer's 1,000 ml @ 30 mls/hr Q24H PRN IV SEE LABEL COMMENTS; Start 12/16/16 at 00:45; Stop 12/19/16 at 00:44 Sodium Chloride 500 ml @ 30 mls/hr [id number] PRN IV SEE LABEL COMMENTS; Start at 00:45; Stop 12/19/16 at 00:44 Metoprolol Tartrate (Lopressor) 25 mg CAR DELIVERER PRN PO SEE LABEL COMMENTS; Start 12/16/16 at 00:45; Stop 12/19/16 at 00:44 Povidone Iodine (Betadine 5% Antisepsis Kit) 1 applic CAR DELIVERER PRN EACH NARE SEE LABEL COMMENTS; Start 12/16/16 at 00:45; Stop 12/19/16 at 00:44 Chlorhexidine Gluconate (Chlorhexidine 2% Cloth) 3 pack CAR DELIVERER PRN TOPICAL SEE LABEL COMMENTS; Start 12/16/16 at 00:45; Stop 12/19/16 at 00:44 Insulin Human Regular (NovoLIN R INJ) See Protocol Table ... CAR DELIVERER PRN SQ SEE PROTOCOL TABLE; Start 12/16/16 at 00:45; Stop 12/19/16 at 00:44 Acetaminophen 100 ml @ As Directed STK-MED ONCE IV ; Start 12/16/16 at 07:06; Stop 12/16/16 at 07:07; Status DC Propofol 150 ml @ As Directed STK-MED ONCE .ROUTE ; Start 12/16/16 at 07:07; Stop 12/16/16 at 07:08; Status DC Heparin Sodium (Porcine) (Heparin Inj) 30,000 units STK-MED ONCE .ROUTE ; Start 12/16/16 at 07:26; Stop 12/16/16 at 07:27; Status DC Thrombin (Thrombin Top Soln) 10,000 units STK-MED ONCE .ROUTE ; Start 12/16/16 at 07:27; Stop 12/16/16 at 07:28; Status DC Cefazolin Sodium/ Dextrose 100 ml @ As Directed STK-MED ONCE .ROUTE ; Start at 07:27; Stop 12/16/16 at 07:28; Status DC Bupivacaine HCl (Marcaine Pf 0.5% Inj) 30 ml STK-MED ONCE .ROUTE ; Start at 07:27; Stop 12/16/16 at 07:28; Status DC Gelatin (Gelfoam 100 Top) 1 foam STK-MED ONCE .ROUTE ; Start 12/16/16 at 07:27 ; Stop 12/16/16 at 07:28; Status DC Gentamicin Sulfate (Gentamicin Inj) 240 mg STK-MED ONCE .ROUTE ; Start at 07:27; Stop 12/16/16 at 07:28; Status DC Famotidine (Pepcid Inj) 20 mg STK-MED ONCE .ROUTE ; Start 12/16/16 at 08:40; Stop 12/16/16 at 08:41; Status DC Artificial Tears (Lacrilube Opht Oint) 3.5 applic STK-MED ONCE .ROUTE ; Start 12/16/16 at 08:41; Stop 12/16/16 at 08:42; Status DC Sodium Chloride 250 ml @ As Directed STK-MED ONCE .ROUTE ; Start 12/16/16 at 08:41; Stop 12/16/16 at 08:42; Status DC Vancomycin HCl (Vancomycin Inj) 1,000 mg STK-MED ONCE .ROUTE ; Start 12/16/16 at 08:41; Stop 12/16/16 at 08:42; Status DC Medical Decision Making MDM Remarks THIS NOTE CORRESPONDS TO MY ASSESSMENT ON 12/15 DURING ROUNDS Last 48 hours Impressions Lumbar Spine X-Ray 12/15/16 0000 Signed Impressions: Service Date/Time: November 15:56 - CONCLUSION: 1. Stable alignment of the lumbar spine with flexion and extension. 2. Advanced degenerative changes. Tate Camarillo MD Plan Plan Remarks THIS NOTE CORRESPONDS TO MY ASSESSMENT ON 12/15 DURING ROUNDS Last 48 hours Impressions Lumbar Spine X-Ray 12/15/16 0000 Signed Impressions: Service Date/Time: November 15:56 - CONCLUSION: 1. Stable alignment of the lumbar spine with flexion and extension. 2. Advanced degenerative changes. Tate Camarillo MD Attending Statement THIS NOTE CORRESPONDS TO MY ASSESSMENT ON 12/15 DURING ROUNDS Neuro.I reviewed his CT and the flexion extension xrays. the L3-4 spondylolisthesis is currently [id number]. There is no instability on flexion -extension, nor evidence of L4 radiculopathy. He has severe symptoms related adjacent to L5 fusion-S1 with right s1 radiculopathy. No improvement after CAMILLE. the patient is requesting a surgical procedure. L5-S1 TLIF is medically indicated and reasonable, with removal of the malposition screw at L4. We have discussed the details including the [id number] details of the surgical procedure, its indications, alternatives, risks, and potential complications. Risks and potential complications include, but are not limited to, infection, blood loss, CSF leak, partial or complete loss of sight in one or both eyes, paresis, paralysis, permanent pain or difficulty swallowing, loss of bowel or bladder function, complications from anesthesia, blood clot, stroke, myocardial infarction, or even . acetaminophen/cooling blanket as needed for temperature greater than 100.4 Narcotic analgesics for pain control respiratory aggressive pulmonary toilette, nasotracheal suction, and breathing treatments with nebulizers. Nutrition. Oral diet Renal. monitor closely urine output, BUN and creatinine Obrien. Monitor intake and output. Monitor electrolytes and replace as indicated per ICU electrolyte replacement protocol. ENDO:Monitor bedside glucose and initiate low-dose insulin sliding scale as indicated for glucose greater than 180 Protonix for stress ulcer prophylaxis Wagner hose and SCD's for DVT prophylaxis. Further recommendations depending on her clinical evolution and follow up radiological; studies Chino Mancilla MD Dec 16, 2016 09:08
[2016-12-16] MEDS ORDERED: BISACODYL 10 MG SUPP PR PRN (14:30)
[2016-12-16] MEDS ORDERED: ACETAMINOPHEN 325 MG TAB PO PRN (14:30)
[2016-12-16] MEDS ORDERED: MAGNESIUM HYDROXIDE SUSP 30 ML CUP PO PRN (14:30)
[2016-12-16] MEDS ORDERED: DO NOT ADM ANY ANTICOAGULANT DRUGS PRN (15:01)
[2016-12-16] MEDS: INSULIN ASPART SUPPLEMENTAL SCALE SQ SCH ×2 (15:17→21:07)
[2016-12-16] MEDS: SODIUM CHLOR 0.9% 1000 ML INJ 1,000 ML IV SCH (15:34)
[2016-12-16] MEDS ORDERED: diphenhydrAMINE HCL 50 MG/ML VIAL IV PUSH PRN (15:45)
[2016-12-16] MEDS ORDERED: GLUCAGON 1 MG/ML VIAL OTHER PRN (15:45)
[2016-12-16] MEDS ORDERED: HYDROmorphone HCL PCA 6 MG/30 ML IV SCH (15:45)
[2016-12-16] MEDS ORDERED: ONDANSETRON HCL 4 MG/2 ML VIAL IV PUSH PRN (15:45)
[2016-12-16] MEDS ORDERED: NALOXONE HCL 0.4 MG/ML AMP IV PUSH PRN (15:45)
[2016-12-16] MEDS ORDERED: cloNIDine HCL 0.1 MG TAB PO/NG PRN (15:45)
[2016-12-16] MEDS ORDERED: DEXTROSE 50% IN WATER 50 ML VIAL(D50) IV PUSH PRN (15:45)
--- NOTE | 2016-12-16 15:55 | PD.OP ---
Operative Report Date of Surgery: Dec 16, 2016 Preoperative Diagnosis: Lumbar spondylosis at L5-S1 Postoperative Diagnosis: Lumbar spondylosis at L5-S1 Procedure: L5-S1 decompressive laminectomy, interbody arthrodesis using Peek cage filled with autologous iliac crest bone graft, L5-S1 posterolateral fusion using autologous iliac crest bone graft, with demineralized bone matrix, L5-S1 instrumental fixation using transpedicular screws and rods, microsurgical dissection Anesthesia: general Surgeon: Chino Mancilla Dredgemaster(s): Ann Flores Operation and Findings: INTRAOPERATIVE FINDINGS Severe degenerative severe adjacent level degeneration at L5-S1 INDICATIONS FOR PROCEDURE mr Lynne is a 76 year-old male who presented with intractable mechanical back pain and manan evidence of right S1 lower extremity radiculopathy. He has history of a prior laminectomy fusion at L4-L5 and has developed severe adjacent level degenerative disc disease with secondary stenosis at L5-S1. There was mild position of one of the screw which was transversing through the spinal canal. He failed maximum nonsurgical management including multiple modalities of conservative treatment as well as pain management interventions by an interventional pain specialist. The patient has undergone a previous surgical procedure. A redo surgical decompression and arthrodhesis were indicated as a last resort. The [id number] details of the procedure, indications, alternatives, risks and potential complications were fully discussed with the patient. The patient fully understood. All the questions were answered. No guarantees were given. The patient voiced requesting the procedure and provided informed consents. The patient was offered the alternative of delaying the procedure and continuing with nonsurgical management. DETAILS OF THE SURGICAL PROCEDURE Prior to the procedure, the surgical incision was marked in the preoperative surgical holding room, and the procedure, risks, and potential complications revisited with the patient. Placement of electrodes for intraoperative neurophysiological monitoring was completed. The patient was taken to the operative room, and following induction of general anesthesia, endotracheal intubation was performed. A Obrien catheter, bilateral CLARA hose and sequential compression devices were placed and kept throughout the procedure. The patient was positioned prone, over a Akbar table using gel pads and bolsters.. All pressure in the preoperative surgical holding room points were carefully padded with eggcrate and gel mattress. The eyes were taped shut after ointment was applied by the anesthesiologist to prevent corneal abrasion. A bear hugger was placed over the exposed upper body to maintain control of the core body temperature. The electrophysiological team placed needles and electrodes in the proper location and baseline SSEPs were registered prior to and after positioning. Following positioning the levels were carefully assessed using AP and lateral views with the C-arm. The surgical procedure was performed in several steps as follows: SURGICAL APPROACH Once the patient was positioned and the proper levels were confirmed with the C- arm, 2 paramedian skin incisions were outlined over the pedicles, extending from L4 down to S1 . TThe skin incisions were made with a #10 blade. Small bleeders were controlled with the cautery. The dissection was then carried out into deper planes and through the thoracolumbar fascia with a Bovie. The intermuscular septum was identified and the muscles were blunted dissected along the septum. The facets and transverse process of L5 and S1 were exposed and the proper anatomical landmarks were identified. A microsurgical self- retaining retractor was placed on the incision, and a localizing lateralizing cross-table x-ray was performed with an instrument underneath a lamina of the lumbar spine. The prior instrumentation was carefully exposed and a self- retaining retractor was placed on the incision. At this point of the procedure , the cross link of the prior instrumentation was carefully exposed free of scar tissue and the caps of the previously placed screws were sequentially removed allowing removal of the rods. The patient had a mild position screw at L4 on the left side. The screw was inside the spinal canal. The screw was carefully removed without complications. There was no evidence of cerebrospinal fluid leak upon removal of the screw. The trajectory of the screw was covered with Gelfoam INSTRUMENTAL FIXATION At this point of the procedure, placement of bilateral transpedicular screws was necessary at S1. Initially, the entry point for the screw was selected anatomically at the junction of the facet joint , transverse process and para interarticularis. Bilateral transpedicular screws were placed at S1. Initially, the entry point for the screw was selected anatomically at the junction of the facet, with the transverse process, and the pars interarticularis at L5 and at the sacrum. This was started with a Giamshetti needle, followed by the use of an landrum wire, and then a tap was used to create the threads for the screws. Finally bilateral transpedicular screws were carefully placed bilaterally at S1 under fluoroscopic visualization. An appropriate purchase was achieved with all screws. The position of each screw was assessed anatomically with an AP, lateral, oblique Xrays. An intraoperative scan view of the spine was then performed using the iso-centric c-arm. Each screw was then assessed electrophysiologically with a nerve stimulator.. SURGICAL DECOMPRESSION The patient had significant mass effect over the thecal sac and exiting nerve roots L5 and S1. In order to relieve the neuro compression, it was necessary to perform a decompressive laminectomy atr L5-S1, to allow proper decompression of the spinal canal and bilateral lateral recess and foramen. Note that the scope of such decompression was significantly more extensive than the minimal exposure necessary to perform and interbody fusion as the patient has severe facet arthropathy and degeneration of the disk at L5-S1 with hypertrophic joint facets. At this point of the procedure, the operative microscope was draped in the usual sterile fashion and brought to the field. The rest of the surgical procedure was performed using microdissection technique with exception of the closure. Under the operative microscope, a bilateral decompressive laminectomy was performed at L5-S1. The spinous processes were removed with an Leksell and the laminae was drilled bilaterally with the TPS drill exposing the ligamentum flavum. There was severe facet arthropathy and in order to achieve a proper decompression, signicand amount of facet had to be drilled with a TPS drill, which resulted in further instability. The superior border of the ligamentum flavum was carefully elevated with a nerve hook and ligamentum dissector and removed with the 3mm and 4mm Kerrison. The S1 nerve roots were identified and followed towards the foramen. A bilateral foraminotomy was performed with a Kerrison. The lateral epidural space was carefully exposed and epidural veins were coagulated with the bipolar and incised with microscissors. Gentle medial retraction of the thecal sac allowed to expose the disk space L5-S1. The annulus was coagulated with the bipolar and incised with an 11 blade and a microdiskectomy was exposed in the standard fashion allowing for excellent decompression of the neuro structures. There was severe degeneration of the disk at L5-S1. INTERBODY ARTHRODHESIS An interbody arthrodesis is necessary in order to further stabilize the spine and maintain distraction of the disk space and to increase the chances of obtaining a solid interbody fusion, it was necessary the insertion of an interbody device into the disk space. Otherwise, the disk space could collapse compromising the surgical results. At this point of the procedure, the microdiskectomy was completed at L5-S1. A reverse angled curet was applied to underneath the posterior longitudinal ligament and used to push the disk fragments into the disk space so they could be safely removed with the pituitary forceps. Once the diskectomy was completed, it was necessary to distract the space and decorticate the endplates in order to eliminate the cartilaginous endplate and expose healthy bone appropriate to perform the interbody fusion. The endplates at L5-S1 were distracted with a paddle distractor and then carefully decorticated using a series of bone sanket, ring curets, eliminating the cartilaginous endplate and exposing healthy bone. Disk distractor was used to increase the site. Initial motion was noted at the disk which was consistent with instability due to severe facet arthropathy. Once a thorough preparation of the disk space was achieved, the disk space was irrigated with antibiotic solution and the interbody arthrodesis performed by carefully impacting a Peek cage filled with autologous iliac crest bone graft in position. The use of several showed impactor with different angulations allowed for excellent positioning of the interbody cage. A solid position of the cage with good purchase into the disk space was achieved. The position of the cage was assessed anatomically without AP and lateral probe and radiologically with a C-arm. POSTEROLATERAL FUSION The posterolateral fusion is a critical component to the procedure to prevent future fatigue of the instrumentation and stabilize the spine. Initially the transverse processes of the vertebral bodies L5 and S1. lateral surface of the facet lateral gutters of the spine at L5-S1 were carefully cleaned from all soft tissue and muscle attachments. The area was irrigated with antibiotic solution. Subsequently, the transverse processes, lateral surface of the facets and lateral gutters of the spine were thoroughly decorticated using the TPS drill with a 5 mm cutting esvin exposing cancellous bone in preparation of the posterolateral fusion. The incision was then irrigated again with antibiotic solution and the posterolateral fusion was performed by carefully packing the gutters of the spine at L5-S1 with autologous bone, and with demineralized bone matrix. As much bone as possible was packed in the gutters of the spine. COMPLETION OF INSTRUMENTATION AND CLOSURE The rods were brought to the field, applied to all the screws. The screw caps were sequentially applied. Compression was performed between the pedicle screws at L5-S1 and final tightening of all screws was completed using a pre-calibrated torque wrench. The incision was again irrigated with a large amount of antibiotic solution. Hemostasis was secured with the bipolar cautery. The Valsalva maneuver performed by anesthesiologist failed to show any evidence of cerebrospinal fluid leak or bleeding. A 7 mm Akbar-Verdugo drain was left in the epidural space and externalized through a separate stab incision. The incision was closed in planes. 0 Vicryl was used in interrupted fashion to close the thoracolumbar fascia and the superficial fascia. The subcutaneous tissue was approximated with 3-0 Vicryl. Special care was taken to avoid any space. The skin was closed with 4-0 Vicryl in a running fashion. Each plane of closure was irrigated with antibiotic solution. At the end of the procedure the sponge, needle and instrument counts were all correct. Estimated blood loss was 200 cc or less. No blood transfusion was given. The entire procedure was performed using continuous electrophysiological monitoring of the somato sensorial evoked potentials and EMG. The patient received prophylactic antibiotics. The patient was then extubated and transferred to the recovery room in stable condition. Chino Mancilla MD Dec 16, 2016 15:55
[2016-12-16] MEDS ORDERED: MENTHOL LOZENGE BUCCAL PRN (16:00)
[2016-12-16] MEDS ORDERED: SODIUM CHLORIDE 0.9% FLUSH 5 ML FLUSH IVF PRN (16:00)
[2016-12-16] MEDS ORDERED: RESP: ALBUTEROL 2.5 MG/3 ML NEB (PRN) INH (16:00)
--- NOTE | 2016-12-16 16:18 | RADRPT ---
EXAM DATE/TIME: 12/16/2016 09:39 [facility] COMPARISON: No previous studies available for comparison. INDICATIONS : Fusion L5,S1 MEDICAL HISTORY : Cardiovascular disease. SURGICAL HISTORY : Fusion, lumbar. Appendectomy. Cholecystectomy. ENCOUNTER: Subsequent ACUITY: 3 days PAIN SCORE: Non-responsive. LOCATION: Lumbar spine. FINDINGS: 2 views of the lower lumbar spine are recorded digitally in the operating room using C-arm during alina cement of posterior spinal instrumentation hardware at 3 levels and interspace device. CONCLUSION: Intraoperative images. Jesús Mckenzie MD on December 16, 2016 at 16:15 Board Certified Radiologist. This report was verified electronically.
--- NOTE | 2016-12-16 17:07 | HHI.PR ---
Subjective Remarks Patient going to surgery later by Dr. Mancilla after he was evaluated and new plan has been made to go for surgery Objective Vitals Vital Signs Date Time Temp Pulse Resp B/P (MAP) Pulse Ox O2 Delivery O2 Flow Rate FiO2 12/16/16 16:00 83 17 126/63 (84) 98 Nasal Cannula 3 12/16/16 15:45 86 14 132/64 (86) 100 Nasal Cannula 3 12/16/16 15:30 91 17 145/81 (102) 99 Nasal Cannula 3 12/16/16 15:15 99 20 146/76 (99) 100 Nasal Cannula 4 12/16/16 15:01 98.2 98 14 136/72 (93) 99 Nasal Cannula 4 12/16/16 08:00 96.6 66 18 129/81 (97) 96 12/16/16 05:00 97.4 96 18 134/83 (100) 97 12/16/16 01:00 96.2 65 18 156/85 (108) 97 12/15/16 20:40 96.4 96 20 160/94 (116) 97 I/O 12/15/16 12/15/16 12/15/16 12/16/16 12/16/16 12/16/16 07:00 15:00 23:00 07:00 15:00 23:00 Intake Total 240 ml 120 ml 1550 ml Output Total 450 ml 600 ml Balance -450 ml 240 ml 120 ml 950 ml Intake Oral 240 ml 120 ml Other 1550 ml Output Urine Total 450 ml 400 ml Estimated Blood Loss 200 ml # Voids 0 3 # Bowel Movements 0 0 Result Diagram: 12/12/16 0428 12/12/16 0420 Objective Remarks GENERAL: This is a well-nourished, well-developed patient, in no apparent distress. SKIN: No rashes, warm and dry HEAD: Atraumatic. Normocephalic. EYES: Pupils equal round and reactive. Extraocular motions intact. No scleral icterus. ENT: Nose without bleeding, or drainage, Airway patent. NECK: Trachea midline. Supple CARDIOVASCULAR: Regular rate and rhythm without murmurs, gallops, or rubs. RESPIRATORY: Fair air entry bilaterally. No wheezes, rales, or rhonchi. GASTROINTESTINAL: Abdomen soft, non-tender, nondistended. Positive bowel sounds MUSCULOSKELETAL: Extremities without clubbing, cyanosis, or edema. Pedal pulses appreciated NEUROLOGICAL: Awake and alert. Moves all extremity. Normal speech.no focal neurological deficit Procedures None A/P Problem List: (1) Recurrent falls ICD Code: R29.6 - Repeated falls (2) Intractable back pain ICD Code: M54.9 - Dorsalgia, unspecified Status: Acute (3) Dehydration ICD Code: E86.0 - Dehydration (4) HTN (hypertension) ICD Code: I10 - Essential (primary) hypertension Assessment and Plan This is a 76-year-old male with a PMH of Anxiety, Depression, HTN, Hyperlipidemia, Hypothyroidism and Sleep Apnea who presented to the ER with complaints of severe back pain in addition to right leg pain x1 wk prior to this admission. Denies any injury or trauma. On arrival, BP 160/65, HR 88, O2 sat 93% on RA, Afebrile. CBC unremarkable. Chemistry essentially unremarkable except for GFR 56. MRI L-spine with L3-L4 grade 1 retrolisthesis resulting in moderate stenosis and moderate bilateral foraminal stenosis, L4-L5 with fusion and residual grade 1 anterolisthesis, L5-S1 disc bulge with moderate right foraminal stenosis and flattening of right L5 nerve root. - L3-L4 spondylolisthesis - Neurosurgery recommended non-surgical management with pain management, PT and epidural steroid injection (CAMILLE). - Will keep patient on acetaminophen, Percocet, Dilaudid IV when necessary for pain management. - Physical therapy following. - Continue Solu-Medrol 40 mg IV every 12 hours. Continue diazepam 5 mg by mouth every 8 hours for muscle spasm. - Patient received CAMILLE by IR. Unfortunately, his pain is not improved. -Neurosurgery. Reevaluate patient yesterday and now decided to take patient surgery later today - Hypothyroidism - continue levothyroxine 112 g daily. - Hypertension - Currently normotensive (BP 148/81). Full code. SCDs. Rg Conn MD Dec 16, 2016 17:06
[2016-12-16 17:42] VITALS: BP 129/67; PULSE 74; RESP 18; TEMP 96.2; O2SAT 98
[2016-12-16] MEDS: ceFAZolin 2 GM PREMIX 50 ML IV SCH (17:49)
[2016-12-16 20:00] VITALS: BP 141/79; PULSE 70; RESP 18; TEMP 97.7; O2SAT 99
[2016-12-16] MEDS: PCA - TOTAL MG DILAUDID DELIVERED PER SHIFT SCH (21:06)
[2016-12-16 21:08] VITALS: O2SAT 98
[2016-12-16] MEDS: CHLORHEXIDINE GLUCONATE 4% SOLN 120 ML BTL TOP SCH (21:08)
[2016-12-17] VITALS (7 sets, daily range): BP systolic 120–147; BP diastolic 49–85; PULSE 74–86; RESP 16–18; TEMP 97.4–98.1; O2SAT 95–98
[2016-12-17] MEDS: ceFAZolin 2 GM PREMIX 50 ML IV SCH ×2 (01:18→09:43)
[2016-12-17] MEDS: SODIUM CHLOR 0.9% 1000 ML INJ 1,000 ML IV SCH ×3 (01:18→20:35)
[2016-12-17] MEDS: LEVOTHYROXINE SODIUM 112 MCG TAB PO SCH (05:04)
[2016-12-17] MEDS: PCA - TOTAL MG DILAUDID DELIVERED PER SHIFT SCH ×3 (05:09→22:00)
[2016-12-17 07:32] LABS: BASOPHIL % 0.1 % (0.0-2.0); HEMATOCRIT 36.7 % (39.0-51.0); HEMO FLAGS DIFF FINAL; LYMPH % 4.5 % (9.0-44.0); LYMPHOCYTE # 0.6 TH/MM3 (1.0-4.8); MEAN CORPUSCULAR HEMOGLOBIN 32.3 PG (27.0-34.0); MONO % 6.4 % (0.0-8.0); PLATELET COUNT 325 TH/MM3 (150-450); RED BLOOD COUNT 3.86 MIL/MM3 (4.50-5.90); RED CELL DISTRIBUTION WIDTH 13.5 % (11.6-17.2); WHITE BLOOD COUNT 13.5 TH/MM3 (4.0-11.0)
[2016-12-17] MEDS: PANTOPRAZOLE SOD 40 MG DELAYED RELEASE TAB PO SCH (07:49)
[2016-12-17] MEDS: DOCUSATE SODIUM 50 MG/SENNA 8.6 MG TAB PO SCH ×2 (07:49→20:34)
[2016-12-17] MEDS: methylPREDNISolone SOD SUCC 40 MG/1 ML VIAL IV PUSH SCH ×2 (07:50→20:34)
[2016-12-17] MEDS: INSULIN ASPART SUPPLEMENTAL SCALE SQ SCH ×2 (07:50→20:29)
[2016-12-17] MEDS: SODIUM CHLORIDE 0.9% FLUSH 10 ML FLUSH IV FLUSH SCH ×2 (07:51→20:35)
[2016-12-17 07:52] LABS: BICARBONATE 25.7 MEQ/L (21.0-32.0); POTASSIUM 4.1 MEQ/L (3.5-5.1)
--- NOTE | 2016-12-17 08:20 | HHI.PR ---
Subjective Remarks No acute events overnight. Afebrile, vital signs stable. Patient states that his pain is 6/10 however he is reluctant to take his Dilaudid. He has not had a bowel movement since his surgery. Objective Vitals Vital Signs Date Time Temp Pulse Resp B/P (MAP) Pulse Ox O2 Delivery O2 Flow Rate FiO2 12/17/16 04:00 98.0 86 17 120/49 (72) 97 12/17/16 00:00 97.4 78 16 138/85 (102) 98 12/16/16 21:08 98 Nasal Cannula 2.00 12/16/16 20:00 97.7 70 18 141/79 (99) 99 12/16/16 17:43 Nasal Cannula 2.00 12/16/16 17:42 96.2 74 18 129/67 (87) 98 12/16/16 17:06 16 12/16/16 17:00 97.5 70 16 111/58 (75) 98 Nasal Cannula 2 12/16/16 16:45 75 14 134/71 (92) 100 Nasal Cannula 2 12/16/16 16:30 75 14 125/60 (81) 100 Nasal Cannula 2 12/16/16 16:15 79 17 128/66 (86) 99 Nasal Cannula 2 12/16/16 16:00 83 17 126/63 (84) 98 Nasal Cannula 3 12/16/16 15:45 86 14 132/64 (86) 100 Nasal Cannula 3 12/16/16 15:30 91 17 145/81 (102) 99 Nasal Cannula 3 12/16/16 15:15 99 20 146/76 (99) 100 Nasal Cannula 4 12/16/16 15:01 98.2 98 14 136/72 (93) 99 Nasal Cannula 4 I/O 12/16/16 12/16/16 12/16/16 12/17/16 12/17/16 12/17/16 07:00 15:00 23:00 07:00 15:00 23:00 Intake Total 120 ml 1550 ml 680 ml 1554 ml Output Total 600 ml 990 ml 750 ml Balance 120 ml 950 ml -310 ml 804 ml Intake Oral 120 ml 530 ml 480 ml IV Total 150 ml 1074 ml Other 1550 ml Output Urine Total 400 ml 875 ml 650 ml Drainage Total 115 ml 100 ml Estimated Blood Loss 200 ml # Voids 3 # Bowel Movements 0 Result Diagram: 12/17/1661412/17/16614 Objective Remarks GENERAL: This is a well-nourished, well-developed patient, in no apparent distress. SKIN: No rashes, warm and dry HEAD: Atraumatic. Normocephalic. EYES: Pupils equal round and reactive. Extraocular motions intact. No scleral icterus. ENT: Nose without bleeding, or drainage, Airway patent. NECK: Trachea midline. Supple CARDIOVASCULAR: Regular rate and rhythm without murmurs, gallops, or rubs. RESPIRATORY: Bilateral breath sounds. No wheezes, rales, or rhonchi. GASTROINTESTINAL: Abdomen soft, non-tender, nondistended. Positive bowel sounds MUSCULOSKELETAL: Extremities without clubbing, cyanosis, or edema. NEUROLOGICAL: Awake and alert. Normal speech.no focal neurological deficit Procedures 12/16: L5-S1 decompressive laminectomy, interbody arthrodesis using Peek cage filled with autologous iliac crest bone graft, L5-S1 posterolateral fusion using autologous iliac crest bone graft, with demineralized bone matrix, L5-S1 instrumental fixation using transpedicular screws and rods, microsurgical dissection A/P Problem List: (1) Recurrent falls ICD Code: R29.6 - Repeated falls (2) Intractable back pain ICD Code: M54.9 - Dorsalgia, unspecified Status: Acute (3) Dehydration ICD Code: E86.0 - Dehydration (4) HTN (hypertension) ICD Code: I10 - Essential (primary) hypertension Assessment and Plan This is a 76-year-old male with a PMH of Anxiety, Depression, HTN, Hyperlipidemia, Hypothyroidism and Sleep Apnea who presented to the ER with complaints of severe back pain in addition to right leg pain x1 wk prior to this admission. Denies any injury or trauma. MRI L-spine with L3-L4 grade 1 retrolisthesis resulting in moderate stenosis and moderate bilateral foraminal stenosis, L4-L5 with fusion and residual grade 1 anterolisthesis, L5-S1 disc bulge with moderate right foraminal stenosis and flattening of right L5 nerve root. - L3-L4 spondylolisthesis - Initial management non-surgical with CAMILLE by IR; pain not improved - s/p L5-S1 decompressive laminectomy on 12/16 - Dilaudid TECHNICAL SALES ADVISOR, Percocet for pain - Continue Solu-Medrol 40 mg IV every 12 hours. Continue diazepam 5 mg by mouth every 8 hours for muscle spasm. - PT following - Hypothyroidism - continue levothyroxine 112 g daily. - Hypertension - Currently normotensive (BP 120/49). - Full code. - SCDs. Anticoagulation per NS Discharge Planning Per NS recommendations Yoana Fields MD Dec 17, 2016 08:20
--- NOTE | 2016-12-17 17:08 | HHI.NSPN ---
(Raheel Hilton) History Chief Complaint: The Obrien catheter is bothering him. (Raheel Hilton) Interval History This is a 76-year-old male with history of of Anxiety, Depression, HTN, Hyperlipidemia, Hypothyroidism and Sleep Apnea who presented to the ER with complaints of severe back pain and right leg pain increasing in severity for the past wk. Denies injury or trauma. Was seen at [facility] 12/09/16 for similar complaints, d/c'd home w/ Rx for Norflex and Percocet w/ Ortho follow up. He returned to [facility] several hours later on 12/09/16 w/ ongoing complaints. CT Abd/Pelvis w/ no acute findings. Pelvis X-ray did not show evidence of bony pathology per records. D/c'd home once again, however returns now w/ ongoing severe pain, also notes radicular, shooting pain down RLE. Previously following w/ Dr. Andi Espinal s/p Lumbar Sx 5yrs ago, has a follow up appt in 1mo. On arrival, BP 160/65, HR 88, O2 sat 93% on RA, Afebrile. CBC unremarkable. Chemistry essentially unremarkable except for GFR 56. MRI L- spine with L3-L4 grade 1 retrolisthesis resulting in moderate stenosis and moderate bilateral foraminal stenosis, L4-L5 with fusion and residual grade 1 anterolisthesis, L5-S1 disc bulge with moderate right foraminal stenosis and flattening of right L5 nerve root. Dr. Norris was consulted by ER physician, recommended further eval by Neurosurgery if needed. He received multiple doses of pain medication in ER w/ minimal improvement. Neurosurgical consultation was requested 12/15. Called by Dr Sumner to reevaluater for surgery. He continues to suffer from intractable pain. He received an epidural steroid injection without relief , patient requesting surgical intervention. has great deal of difficulty getting out of bed with severe right S1 radiculopathy. 12/16: The patient went for a L5-S1 decompressive laminectomy and posterolateral fusion with instrumentation. Post-operatively the patient was transferred back to a regular med/surg floor. 12/17: The patient is standing up in front of the chair when seen this afternoon. He is in the TLSO brace. He states that he has no back pain. He does complain of a drop foot on the right which he focuses on. He also focuses on wanting the Obrien catheter out because it is bothering him. (Raheel Hilton) System Review Comments Genitourinary: The Obrien catheter is bothering him. Musculoskeletal: Right drop foot. Neurological: Right drop foot. The remainder of the ROS is negative. (Raheel Hilton) Exam Results 12/15/16 12/15/16 12/16/16 12/16/16 12/17/16 12/17/16 06:00 18:00 06:00 18:00 06:00 18:00 Intake Total 240 ml 1870 ml 2034 ml 720 ml Output Total 250 ml 450 ml 880 ml 1460 ml 1200 ml Balance -250 ml -450 ml 240 ml 990 ml 574 ml -480 ml Intake Oral 240 ml 170 ml 960 ml 720 ml IV Total 150 ml 1074 ml Other 1550 ml Output Urine Total 250 ml 450 ml 625 ml 1300 ml 1200 ml Drainage Total 55 ml 160 ml Estimated Blood Loss 200 ml # Voids 0 3 # Bowel Movements 0 0 Vital Signs Date Time Temp Pulse Resp B/P (MAP) Pulse Ox O2 Delivery O2 Flow Rate FiO2 12/17/16 12:00 97.4 74 18 120/68 (85) 95 12/17/16 09:30 97 21 12/17/16 08:00 98.1 75 18 147/82 (103) 95 12/17/16 04:00 98.0 86 17 120/49 (72) 97 12/17/16 00:00 97.4 78 16 138/85 (102) 98 12/16/16 21:08 98 Nasal Cannula 2.00 12/16/16 20:00 97.7 70 18 141/79 (99) 99 12/16/16 17:43 Nasal Cannula 2.00 12/16/16 17:42 96.2 74 18 129/67 (87) 98 12/16/16 17:06 16 12/16/16 17:00 97.5 70 16 111/58 (75) 98 Nasal Cannula 2 12/16/16 16:45 75 14 134/71 (92) 100 Nasal Cannula 2 12/16/16 16:30 75 14 125/60 (81) 100 Nasal Cannula 2 12/16/16 16:15 79 17 128/66 (86) 99 Nasal Cannula 2 12/16/16 16:00 83 17 126/63 (84) 98 Nasal Cannula 3 12/16/16 15:45 86 14 132/64 (86) 100 Nasal Cannula 3 12/16/16 15:30 91 17 145/81 (102) 99 Nasal Cannula 3 12/16/16 15:15 99 20 146/76 (99) 100 Nasal Cannula 4 12/16/16 15:01 98.2 98 14 136/72 (93) 99 Nasal Cannula 4 12/16/16 08:00 96.6 66 18 129/81 (97) 96 12/16/16 05:00 97.4 96 18 134/83 (100) 97 12/16/16 01:00 96.2 65 18 156/85 (108) 97 12/15/16 20:40 96.4 96 20 160/94 (116) 97 12/15/16 15:32 97.2 73 18 150/79 (102) 96 12/15/16 11:48 98.0 80 16 148/81 (103) 97 12/15/16 07:10 97.8 75 16 162/83 (109) 95 12/15/16 04:02 97.5 72 18 142/55 (84) 95 12/14/16 23:44 98.3 61 19 165/83 (110) 96 12/14/16 22:46 12 12/14/16 19:37 98.3 73 18 155/93 (113) 97 (Raheel Hilton) Physical Examination GENERAL: The patient is awake & alert and readily interacts, his affect is essentially normal although he is fixating on his foot drop and the Obrien catheter, no apparent distress. HEENT: Normocephalic, atraumatic. CARDIOVASCULAR: S1S2 w/RRR w/o M/G/R, pedal pulses 2+ bilateral, no pedal edema. RESPIRATORY: CTAB w/o W/R/R, equal excursion, non-laboured, on RA. GASTROINTESTINAL: Deferred. GENITOURINARY: Obrien catheter to BSD w/clear yellow urine. MUSCULOSKELETAL: MATHIS w/o difficulty, no evident deformity or clubbing. Right foot drop. Lumbar surgical incision NTTP w/intact dressing. NEUROLOGICAL: AAOx3. Speech clear & appropriate. Follows simple commands w/o difficulty. Sensation intact to light touch to lower extremities. Motor strength 5/5 to all major flexion & extension muscle groups to lower extremities except for right tibialis anterior which is 0/5. (Raheel Hilton) Lab, Micro, Other Results Recent Impressions Lumbar Spine X-Ray 12/16/16 0000 Signed Impressions: Service Date/Time: Friday, December 16, 2016 09:39 - CONCLUSION: Intraoperative images. Jesús Mckenzie MD Lumbar Spine X-Ray 12/15/16 0000 Signed Impressions: Service Date/Time: November 15:56 - CONCLUSION: 1. Stable alignment of the lumbar spine with flexion and extension. 2. Advanced degenerative changes. Tate Camarillo MD Laboratory Tests Test 12/17/16 06:15 White Blood Count 13.5 TH/MM3 Red Blood Count 3.86 MIL/MM3 Hemoglobin 12.5 GM/DL Hematocrit 36.7 % Mean Corpuscular Volume 95.0 FL Mean Corpuscular Hemoglobin 32.3 PG Mean Corpuscular Hemoglobin Concent 34.0 % Red Cell Distribution Width 13.5 % Platelet Count 325 TH/MM3 Mean Platelet Volume 8.1 FL Neutrophils (%) (Auto) 89.0 % Lymphocytes (%) (Auto) 4.5 % Monocytes (%) (Auto) 6.4 % Eosinophils (%) (Auto) 0.0 % Basophils (%) (Auto) 0.1 % Neutrophils # (Auto) 12.0 TH/MM3 Lymphocytes # (Auto) 0.6 TH/MM3 Monocytes # (Auto) 0.9 TH/MM3 Eosinophils # (Auto) 0.0 TH/MM3 Basophils # (Auto) 0.0 TH/MM3 CBC Comment DIFF FINAL Differential Comment Blood Urea Nitrogen 24 MG/DL Creatinine 1.17 MG/DL Random Glucose 116 MG/DL Calcium Level 9.0 MG/DL Sodium Level 136 MEQ/L Potassium Level 4.1 MEQ/L Chloride Level 102 MEQ/L Carbon Dioxide Level 25.7 MEQ/L Anion Gap 8 MEQ/L Estimat Glomerular Filtration Rate 61 ML/MIN (Raheel Hilton) Medical Decision Making Impression and Plan Postoperative Diagnosis: Lumbar spondylosis at L5-S1 Patient is doing well post-operatively but continues to have a right foot drop. POD #1 () s/p: L5-S1 decompressive laminectomy, interbody arthrodesis using Peek cage filled with autologous iliac crest bone graft, L5-S1 posterolateral fusion using autologous iliac crest bone graft, with demineralized bone matrix, L5-S1 instrumental fixation using transpedicular screws and rods, microsurgical dissection Plan: Primary management per Hospitalist. Mobilise patient. TLSO brace when out of bed. PT eval & tx. Consider AFO for right foot drop. D/C Obrien catheter. (Raheel Hilton) Attending Statement The exam, history, and the medical decision-making described in the above note were completed with the assistance of the mid-level provider. I reviewed and agree with the findings presented. I attest that I had a [id number] encounter with the patient on the same day, and personally performed and documented my assessment and findings in the medical record. Patient complains of persistent right gluteal pain. Right foot drop unchanged compared to preoperative. Sensorimotor exam otherwise intact lower extremities He is out of bed in a chair with the TLSO brace. He does not like the brace, he wants a smaller one. We will request right AFO brace. ALIYA Obrien I advised him that right gluteal pain may persist for an indefinite amount of time even after adequate L5-S1 decompression. (Mateus Rome MD) Raheel Hilton Dec 17, 2016 17:08 Mateus Rome MD Dec 17, 2016 21:54
[2016-12-17] MEDS: CHLORHEXIDINE GLUCONATE 4% SOLN 120 ML BTL TOP SCH (20:35)
[2016-12-18] VITALS: BP 155/75; PULSE 70; RESP 18; TEMP 98; O2SAT 97
[2016-12-18 04:00] VITALS: BP 147/84; PULSE 77; RESP 18; TEMP 98.1; O2SAT 96
[2016-12-18] MEDS: PCA - TOTAL MG DILAUDID DELIVERED PER SHIFT SCH (06:00)
[2016-12-18] MEDS: LEVOTHYROXINE SODIUM 112 MCG TAB PO SCH (06:01)
[2016-12-18 08:00] VITALS: BP 143/80; PULSE 65; RESP 18; TEMP 96.5; O2SAT 95
[2016-12-18] MEDS: SODIUM CHLOR 0.9% 1000 ML INJ 1,000 ML IV SCH ×3 (08:00→23:22)
[2016-12-18] MEDS: INSULIN ASPART SUPPLEMENTAL SCALE SQ SCH ×4 (08:00→20:01)
--- NOTE | 2016-12-18 08:42 | HHI.PR ---
Subjective Remarks No acute events overnight. Afebrile, vital signs stable. Patient denies any pain at this time. States he is only using his BOILER OR ENGINE OPERATOR possibly once every 1-2 hours. Obrien was removed yesterday, patient has voided without difficulty since that time. He is mostly concerned about his foot drop, seen by neurosurgery yesterday and a brace was ordered to address this. Objective Vitals Vital Signs Date Time Temp Pulse Resp B/P (MAP) Pulse Ox O2 Delivery O2 Flow Rate FiO2 12/18/16 06:00 17 12/18/16 04:00 98.1 77 18 147/84 (105) 96 12/18/16 00:00 98.0 70 18 155/75 (101) 97 12/17/16 22:00 17 12/17/16 20:00 97.8 83 18 126/78 (94) 97 12/17/16 16:00 97.7 84 18 130/76 (94) 95 12/17/16 12:00 97.4 74 18 120/68 (85) 95 12/17/16 09:30 97 21 I/O 12/17/16 12/17/16 12/17/16 12/18/16 12/18/16 12/18/16 07:00 15:00 23:00 07:00 15:00 23:00 Intake Total 1554 ml 720 ml 240 ml 240 ml Output Total 750 ml 1200 ml 680 ml 40 ml Balance 804 ml -480 ml -440 ml 200 ml Intake Oral 480 ml 720 ml 240 ml IV Total 1074 ml 240 ml Output Urine Total 650 ml 1200 ml 600 ml Drainage Total 100 ml 80 ml 40 ml # Voids 1 # Bowel Movements 0 Result Diagram: 12/17/1661412/17/16614 Objective Remarks GENERAL: This is a well-nourished, well-developed patient, in no apparent distress. SKIN: No rashes, warm and dry HEAD: Atraumatic. Normocephalic. EYES: Pupils equal round and reactive. Extraocular motions intact. No scleral icterus. ENT: Nose without bleeding, or drainage, Airway patent. NECK: Trachea midline. Supple CARDIOVASCULAR: Regular rate and rhythm without murmurs, gallops, or rubs. RESPIRATORY: Bilateral breath sounds. No wheezes, rales, or rhonchi. GASTROINTESTINAL: Abdomen soft, non-tender, nondistended. Positive bowel sounds MUSCULOSKELETAL: Extremities without clubbing, cyanosis, or edema. NEUROLOGICAL: Awake and alert. Normal speech.no focal neurological deficit Procedures 12/16: L5-S1 decompressive laminectomy, interbody arthrodesis using Peek cage filled with autologous iliac crest bone graft, L5-S1 posterolateral fusion using autologous iliac crest bone graft, with demineralized bone matrix, L5-S1 instrumental fixation using transpedicular screws and rods, microsurgical dissection A/P Problem List: (1) Recurrent falls ICD Code: R29.6 - Repeated falls (2) Intractable back pain ICD Code: M54.9 - Dorsalgia, unspecified Status: Acute (3) Dehydration ICD Code: E86.0 - Dehydration (4) HTN (hypertension) ICD Code: I10 - Essential (primary) hypertension Assessment and Plan This is a 76-year-old male with a PMH of Anxiety, Depression, HTN, Hyperlipidemia, Hypothyroidism and Sleep Apnea who presented to the ER with complaints of severe back pain in addition to right leg pain x1 wk prior to this admission. Denies any injury or trauma. MRI L-spine with L3-L4 grade 1 retrolisthesis resulting in moderate stenosis and moderate bilateral foraminal stenosis, L4-L5 with fusion and residual grade 1 anterolisthesis, L5-S1 disc bulge with moderate right foraminal stenosis and flattening of right L5 nerve root. - L3-L4 spondylolisthesis - Initial management non-surgical with CAMILLE by IR; pain not improved - s/p L5-S1 decompressive laminectomy on 12/16 - D/C Dilaudid BOILER OR ENGINE OPERATOR, Percocet for pain, IV Dilaudid for breakthrough - Continue Solu-Medrol 40 mg IV every 12 hours. Continue diazepam 5 mg by mouth every 8 hours for muscle spasm. - PT following -Foot Drop - AFO brace ordered per NS - PT following -Leukocytosis - No signs of infection - Likely 2/2 IV steroids - Monitor for signs of infection - Hypothyroidism - continue levothyroxine 112 g daily. - Hypertension - Currently normotensive (BP 120/49). Monitor. - Full code. - SCDs. Anticoagulation per NS Discharge Planning Per NS recommendations Yoana Fields MD Dec 18, 2016 08:42
[2016-12-18] MEDS ORDERED: HYDROmorphone HCL PF 1 MG/ML VIAL IV PUSH PRN (08:45)
[2016-12-18] MEDS ORDERED: oxyCODONE/ACETAMINOPHEN 5 MG/325 MG TAB PO PRN (08:45)
[2016-12-18] MEDS ORDERED: oxyCODONE/ACETAMINOPHEN 10 MG/325 MG TAB PO PRN (08:45)
[2016-12-18] MEDS: SODIUM CHLORIDE 0.9% FLUSH 10 ML FLUSH IV FLUSH SCH ×2 (09:00→19:52)
[2016-12-18] MEDS: PANTOPRAZOLE SOD 40 MG DELAYED RELEASE TAB PO SCH (09:09)
[2016-12-18] MEDS: DOCUSATE SODIUM 50 MG/SENNA 8.6 MG TAB PO SCH ×2 (09:09→19:52)
[2016-12-18] MEDS: methylPREDNISolone SOD SUCC 40 MG/1 ML VIAL IV PUSH SCH (09:09)
[2016-12-18 12:00] VITALS: BP 145/88; PULSE 72; RESP 18; TEMP 97; O2SAT 95
--- NOTE | 2016-12-18 13:01 | HHI.NSPN ---
History Chief Complaint: moderate low back pain Interval History Status post L5-S1 laminectomy interbody fusion with posterior instrumentation. Right gluteal and thigh pain better today. Exam Results Vital Signs Date Time Temp Pulse Resp B/P (MAP) Pulse Ox O2 Delivery O2 Flow Rate FiO2 12/18/16 12:00 97.0 72 18 145/88 (107) 95 12/17/16 09:30 21 12/16/16 21:08 Nasal Cannula 2.00 Intake and Output 12/18/16 12/18/16 12/19/16 08:00 16:00 00:00 Intake Total 240 ml Output Total 40 ml Balance 200 ml Physical Examination GENERAL: Sitting up in a chair, awake, no apparent distress Extremities: No significant extremity edema. Posterior tibial pulses 2+ bilateral Neurologic: Awake and alert Speech clear and appropriate Sensation intact by touch lower extremities Right foot drop AFO in place New LSO in place Left lower extremity sensorimotor exam normal Medical Decision Making Impression and Plan Impression: 1. Low back pain, right thigh pain gradually improving postoperative. 2. Chronic right foot drop Plan: AFO in place Continue LSO when out of bed Continue therapy DC CHIEF COMPLIANCE OFFICER pump CC drain Mateus Rome MD Dec 18, 2016 13:01
[2016-12-18 16:00] VITALS: BP 133/71; PULSE 72; RESP 18; TEMP 96.8; O2SAT 96
[2016-12-18] MEDS: CHLORHEXIDINE GLUCONATE 4% SOLN 120 ML BTL TOP SCH (19:52)
[2016-12-18 20:20] VITALS: BP 122/74; PULSE 88; RESP 18; TEMP 97.5; O2SAT 98
--- NOTE | 2016-12-18 21:17 | EKG ---
Date Performed: 12/16/2016 Time Performed: 06:22:24 PTAGE: 76 years EKG: Sinus rhythm Leftward axis Borderline ECG NO PREVIOUS TRACING DOCTOR: Dahlia Mcallister Interpretating Date/Time 12/18/2016 21:04:56
[2016-12-19 00:28] VITALS: BP 127/70; PULSE 68; RESP 18; TEMP 97.5; O2SAT 96
[2016-12-19 04:12] VITALS: BP 139/69; PULSE 79; RESP 18; TEMP 97.7; O2SAT 96
[2016-12-19] MEDS: LEVOTHYROXINE SODIUM 112 MCG TAB PO SCH (04:17)
[2016-12-19 07:23] VITALS: BP 172/79; PULSE 82; RESP 18; TEMP 97.7; O2SAT 96
[2016-12-19] MEDS: DOCUSATE SODIUM 50 MG/SENNA 8.6 MG TAB PO SCH ×2 (08:45→21:00)
[2016-12-19] MEDS: PANTOPRAZOLE SOD 40 MG DELAYED RELEASE TAB PO SCH (08:45)
[2016-12-19] MEDS: methylPREDNISolone 4 MG TAB PO SCH (08:45)
[2016-12-19] MEDS: SODIUM CHLORIDE 0.9% FLUSH 10 ML FLUSH IV FLUSH SCH ×2 (08:49→21:29)
[2016-12-19] MEDS: INSULIN ASPART SUPPLEMENTAL SCALE SQ SCH ×4 (08:49→21:00)
--- NOTE | 2016-12-19 10:51 | HHI.PR ---
Subjective Remarks Follow up for back pain and right leg pain. Patient is status post L5-S1 decompressive laminectomy. He complains of right calf pain. He is able to move his legs better. [facility] evaluation pending. Patient does not want to go to a SNF. Objective Vitals Vital Signs Date Time Temp Pulse Resp B/P (MAP) Pulse Ox O2 Delivery O2 Flow Rate FiO2 12/19/16 07:23 97.7 82 18 172/79 (110) 96 12/19/16 04:12 97.7 79 18 139/69 (92) 96 12/19/16 00:28 97.5 68 18 127/70 (89) 96 12/18/16 20:20 97.5 88 18 122/74 (90) 98 12/18/16 16:00 96.8 72 18 133/71 (91) 96 12/18/16 12:00 97.0 72 18 145/88 (107) 95 I/O 12/18/16 12/18/16 12/18/16 12/19/16 12/19/16 12/19/16 07:00 15:00 23:00 07:00 15:00 23:00 Intake Total 240 ml 720 ml 360 ml 360 ml Output Total 40 ml 800 ml 360 ml 1120 ml Balance 200 ml -80 ml 0 ml -760 ml Intake Oral 720 ml 360 ml 360 ml IV Total 240 ml Output Urine Total 800 ml 300 ml 1100 ml Drainage Total 40 ml 60 ml 20 ml # Voids 4 # Bowel Movements 0 0 Result Diagram: 12/17/16 0615 12/17/16 0615 Imaging Last Impressions Lumbar Spine X-Ray 12/16/16 0000 Signed Impressions: Service Date/Time: Friday, December 16, 2016 09:39 - CONCLUSION: Intraoperative images. Jesús Mckenzie MD Nerve Block 12/14/16 0000 Signed Impressions: Service Date/Time: Wednesday, December 14, 2016 12:23 - CONCLUSION: Uncomplicated fluoroscopically guided right L5 nerve root injection as above. Jesús Monzon Jr., MD Lumbar Spine MRI 12/11/16 0000 Signed Impressions: Service Date/Time: Sunday, December 11, 2016 18:46 - CONCLUSION: 1. At L3-4 there is a grade 1 retrolisthesis resulting in moderate stenosis of the canal at the lateral recesses and moderate bilateral foraminal stenosis. 2. At L4-5 there is fusion with a residual grade 1 anterolisthesis and mild lateral recess and foraminal encroachment bilaterally. 3. At L5-S1 there is a disc bulge and facet arthropathy with moderate right foraminal stenosis and some flattening of the right L5 nerve root. 4. No acute fracture. Conus intact. Charly Nichole MD Objective Remarks GENERAL: Alert, oriented 3, NAD. SKIN: Warm and dry. HEAD: Normocephalic. EYES: No scleral icterus. No injection or drainage. NECK: Supple, trachea midline. No JVD or lymphadenopathy. CARDIOVASCULAR: Regular rate and rhythm without murmurs, gallops, or rubs. RESPIRATORY: Breath sounds equal bilaterally. No accessory muscle use. GASTROINTESTINAL: Abdomen soft, non-tender, nondistended. MUSCULOSKELETAL: No cyanosis, or edema. Right leg pain on movements. BACK: Nontender without obvious deformity. No CVA tenderness. Procedures 12/16: L5-S1 decompressive laminectomy, interbody arthrodesis using Peek cage filled with autologous iliac crest bone graft, L5-S1 posterolateral fusion using autologous iliac crest bone graft, with demineralized bone matrix, L5-S1 instrumental fixation using transpedicular screws and rods, microsurgical dissection A/P Problem List: (1) Recurrent falls ICD Code: R29.6 - Repeated falls (2) Intractable back pain ICD Code: M54.9 - Dorsalgia, unspecified Status: Acute (3) Dehydration ICD Code: E86.0 - Dehydration (4) HTN (hypertension) ICD Code: I10 - Essential (primary) hypertension Assessment and Plan This is a 76-year-old male with a PMH of Anxiety, Depression, HTN, Hyperlipidemia, Hypothyroidism and Sleep Apnea who presented to the ER with complaints of severe back pain in addition to right leg pain x1 wk prior to this admission. Denies any injury or trauma. On arrival, BP 160/65, HR 88, O2 sat 93% on RA, Afebrile. CBC unremarkable. Chemistry essentially unremarkable except for GFR 56. MRI L-spine with L3-L4 grade 1 retrolisthesis resulting in moderate stenosis and moderate bilateral foraminal stenosis, L4-L5 with fusion and residual grade 1 anterolisthesis, L5-S1 disc bulge with moderate right foraminal stenosis and flattening of right L5 nerve root. - L3-L4 spondylolisthesis - Neurosurgery initially recommended non-surgical management with pain management, PT and epidural steroid injection (CAMILLE). - Status post decompressive laminectomy of L5-S1. Continue LSO when out of bed. Neurosurgery discontinued ANGEL drain. - Patient complains of itchiness on Percocet. Will switch to [place] PRN. Continue acetaminophen when necessary and Dilaudid when necessary for breakthrough. - Patient is on salmeterol 4 mg by mouth daily for 3 days. - Hypothyroidism - continue levothyroxine 112 g daily. - Hypertension - Currently normotensive. - Right calf pain - patient is currently not on anticoagulation. We'll check Doppler ultrasound to rule out right-sided DVT. Full code. SCDs. Discharge plan: Discussed with [facility]. They will evaluate patient today. If he does not qualify for [facility], patient does not want to go to SNF. He will likely have to go home with home health. Satya Sumner DO Dec 19, 2016 10:51 am
[2016-12-19 11:42] VITALS: BP 124/66; PULSE 82; RESP 18; TEMP 96.5; O2SAT 96
--- NOTE | 2016-12-19 12:20 | HHI.NSPN ---
Note Status Status: Progress Note Interval History Interval History Status post L5-S1 laminectomy interbody fusion with posterior instrumentation 12/19: right buttock and hamstring pain better, has intermittent right calf pain. surgical pain controlled. Labs, Micro, & Vital Signs Results Date Time Temp Pulse Resp B/P (MAP) Pulse Ox O2 Delivery O2 Flow Rate FiO2 12/19/16 11:42 96.5 82 18 124/66 (85) 96 12/19/16 07:23 97.7 82 18 172/79 (110) 96 12/19/16 04:12 97.7 79 18 139/69 (92) 96 12/19/16 00:28 97.5 68 18 127/70 (89) 96 12/18/16 20:20 97.5 88 18 122/74 (90) 98 12/18/16 16:00 96.8 72 18 133/71 (91) 96 Constitutional Vital Signs Date Time Temp Pulse Resp B/P (MAP) Pulse Ox O2 Delivery O2 Flow Rate FiO2 12/19/16 11:42 96.5 82 18 124/66 (85) 96 12/19/16 07:23 97.7 82 18 172/79 (110) 96 12/19/16 04:12 97.7 79 18 139/69 (92) 96 12/19/16 00:28 97.5 68 18 127/70 (89) 96 12/18/16 20:20 97.5 88 18 122/74 (90) 98 12/18/16 16:00 96.8 72 18 133/71 (91) 96 Review of Systems Constitutional: DENIES: Fever, Chills Cardiovascular: DENIES: Chest pain Neurologic: COMPLAINS OF: Localized weakness (chronic right foot drop), Paresthesias Physical Exam Mr. Pink is alert, in no apparent distress. Speech is fluent. Mentation intact. His incision with Optifoam dressing in place. ANGEL drain with minimal drainage. Cranial nerve: pupils equal, round and reactive to light. Extra-ocular movements are intact. Facial motor are normal and symmetrical. Muscle strength is 5/5 in the upper extremities. 5/5 to both iliopsoas, quadriceps, hamstrings, plantarflexion, left dorsiflexion, and EHL, with right foot drop. Sensory examination is decreased to pinprick to right anterior foot. Medications Current Medications Current Medications Medications (Trade) Dose Ordered Sig/Oliver Route PRN Reason Start Time Stop Time Status Last Admin Dose Admin Diazepam (Valium) 5 mg Q8H PRN PO MUSCLE SPASM 12/11/16 20:30 12/12/16 15:46 Sodium Chloride (NS Flush) 2 ml BID IV FLUSH 12/11/16 21:00 12/19/16 08:49 Acetaminophen (Tylenol) 650 mg Q6H PRN PO Headache, fever 12/11/16 20:30 12/19/16 08:45 Senna/Docusate Sodium (Sonal-Colace) 1 tab BID PO 12/11/16 21:00 12/19/16 08:45 Magnesium Hydroxide (Milk Of Magnesia Liq) 30 ml Q12H PRN PO Mild constipation 12/11/16 20:30 Sennosides (Senokot) 17.2 mg Q12H PRN PO Moderate constipation 12/11/16 20:30 Bisacodyl (Dulcolax Supp) 10 mg DAILY PRN RECTAL SEVERE CONSITIPATION 12/11/16 20:30 Lactulose (Lactulose Liq) 30 ml DAILY PRN PO SEVERE CONSITIPATION 12/11/16 20:30 12/19/16 08:45 Levothyroxine Sodium (Synthroid) 112 mcg DAILY@0600 PO 12/12/16 06:00 12/19/16 04:17 Calcium Carbonate (Tums Chew) 500 mg Q2H PRN CHEW heartburn 12/12/16 03:30 12/16/16 22:35 Oxycodone/ Acetaminophen (Percocet 10-325 Mg) 1 tab Q6H PRN PO PAIN SCALE 5 TO 10 12/12/16 08:30 12/14/16 21:46 Naloxone HCl (Narcan Inj) 0.4 mg UNSCH PRN IV PUSH RESPIRATORY RATE LESS THAN 10 12/16/16 15:45 Diphenhydramine HCl (Benadryl Inj) 25 mg Q6H PRN IV PUSH ITCHING 12/16/16 15:45 12/19/16 04:18 Sodium Chloride 1,000 ml @ 100 mls/hr Q10H IV 12/16/16 16:00 12/17/16 20:35 IV Flush (NS Flush) 2 ml UNSCH PRN IVF FLUSH AFTER USING IV ACCESS 12/16/16 16:00 Pantoprazole Sodium (Protonix) 40 mg DAILY PO 12/17/16 09:00 12/19/16 08:45 Ondansetron HCl (Zofran Inj) 4 mg Q6H PRN IV PUSH NAUSEA OR VOMITING 12/16/16 15:45 Clonidine (Catapres) 0.1 mg Q6H PRN PO/NG SYS BP GREATER THAN 170 MMHG 12/16/16 15:45 Acetaminophen (Tylenol) 650 mg Q4H PRN PO TEMPERATURE > 101.5 F 12/16/16 14:30 Menthol (Patten Neeta) 1 lozenge UNSCH PRN BUCCAL SORE THROAT 12/16/16 16:00 Albuterol Sulfate (Albuterol Neb) 2.5 mg Q4HR NEB PRN INH WHEEZING 12/16/16 16:00 Dextrose (D50w (Vial) Inj) 50 ml UNSCH PRN IV PUSH HYPOGLYCEMIA-SEE COMMENTS 12/16/16 15:45 Glucagon (Glucagon Inj) 1 mg UNSCH PRN OTHER HYPOGLYCEMIA-SEE COMMENTS 12/16/16 15:45 Insulin Aspart (NovoLOG SUPPLEMENTAL SCALE) 1 ACHS SLIDING SCALE SQ 12/16/16 17:00 Oxycodone/ Acetaminophen (Percocet 5-325 Mg) 1 tab Q4H PRN PO Pain 1-5 12/18/16 08:45 Oxycodone/ Acetaminophen (Percocet 10-325 Mg) 1 tab Q4H PRN PO Pain 6-10 12/18/16 08:45 12/19/16 01:23 Hydromorphone HCl (Dilaudid Pf Inj) 1 mg Q3H PRN IV PUSH breakthrough pain 12/18/16 08:45 Methylprednisolone (Medrol) 4 mg DAILY PO 12/19/16 09:00 12/22/16 08:59 12/19/16 08:45 Medical Decision Making MDM Remarks 76 y/o male s/p L5-S1 PLIF with removal of right L4 transpedicular screw right S1 radicular pain improving chronic right foot drop Plan Plan Remarks cont LSO when out of bed, dc ANGEL drain, cont therapy and rehab dc planning to rehab clear to dc to rehab from NRS standpoint Michaela Chaudhry Dec 19, 2016 12:20
--- NOTE | 2016-12-19 12:47 | RADRPT ---
EXAM DATE/TIME: 12/19/2016 11:59 [place] COMPARISON: No previous studies available for comparison. INDICATIONS : Right leg pain. MEDICAL HISTORY : Hypercholesterolemia. Gastroesophageal reflux disease. Gallbladder disease. Thyroid disease. Ki dney stones. Carcinoma, skin. SURGICAL HISTORY : Cholecystectomy. Surgery on C3. L4-L5 and C3 surgery. ENCOUNTER: Initial ACUITY: 1 day PAIN SCORE: 3/10 LOCATION: Right leg. TECHNIQUE: Venous ultrasound of the leg was performed from the inguinal ligament to the proximal calf. Real-alan e, color Doppler and spectral tracing, compression and augmentation techniques were used. FINDINGS: There is normal compressibility of the deep venous system from the inguinal region to the proximal ca lf. No echogenic clot is seen in the lumen of the common femoral, femoral, popliteal, and posterior tibial veins. There is a normal response of the venous system to proximal and distal augmentation an d respiration. CONCLUSION: Negative for deep venous thrombosis. Addy Camarillo MD FACR on December 19, 2016 at 12:45 Board Certified Radiologist. This report was verified electronically.
[2016-12-19] MEDS ORDERED: ACETAMINOPHEN/HYDROcodone 325 MG/7.5 MG TAB PO PRN (13:00)
[2016-12-19] MEDS: SODIUM CHLOR 0.9% 1000 ML INJ 1,000 ML IV SCH ×2 (14:00→21:29)
[2016-12-19 16:00] VITALS: BP 138/68; PULSE 82; RESP 18; TEMP 96.7; O2SAT 98
[2016-12-19 20:20] VITALS: BP 118/73; PULSE 101; RESP 18; TEMP 97.8; O2SAT 94
[2016-12-20] MEDS: CALCIUM CARBONATE 500 MG CHEWABLE TAB CHEW PRN (00:39)
[2016-12-20 00:57] VITALS: BP 116/82; PULSE 85; RESP 18; TEMP 98.5; O2SAT 95
[2016-12-20] MEDS: LEVOTHYROXINE SODIUM 112 MCG TAB PO SCH (07:07)
[2016-12-20 07:49] VITALS: BP 106/62; PULSE 74; RESP 18; TEMP 97.5; O2SAT 96
[2016-12-20] MEDS: INSULIN ASPART SUPPLEMENTAL SCALE SQ SCH ×3 (08:00→17:00)
[2016-12-20] MEDS: SODIUM CHLOR 0.9% 1000 ML INJ 1,000 ML IV SCH (09:04)
[2016-12-20] MEDS: PANTOPRAZOLE SOD 40 MG DELAYED RELEASE TAB PO SCH (09:04)
[2016-12-20] MEDS: DOCUSATE SODIUM 50 MG/SENNA 8.6 MG TAB PO SCH (09:04)
[2016-12-20] MEDS: methylPREDNISolone 4 MG TAB PO SCH (09:04)
[2016-12-20] MEDS: SODIUM CHLORIDE 0.9% FLUSH 10 ML FLUSH IV FLUSH SCH (09:04)
[2016-12-20] MEDS ORDERED: HYDR-3580 PO ×2 (10:04→16:22)
[2016-12-20] MEDS ORDERED: DIAZ5 PO ×2 (10:04→16:22)
[2016-12-20] MEDS ORDERED: Calcium Carbonate Chew CHEW (10:04)
[2016-12-20] MEDS ORDERED: MEDR4TAB PO ×2 (10:04→16:22)
--- NOTE | 2016-12-20 11:05 | HHI.PR ---
Subjective Remarks Follow up for back pain and right leg pain. Patient is currently doing well. Still complains of some right-sided leg numbness. Able to ambulate better. No fever or chills. Neurosurgery cleared for discharge. Objective Vitals Vital Signs Date Time Temp Pulse Resp B/P (MAP) Pulse Ox O2 Delivery O2 Flow Rate FiO2 12/20/16 07:49 97.5 74 18 106/62 (77) 96 12/20/16 00:57 98.5 85 18 116/82 (93) 95 12/19/16 20:20 97.8 101 18 118/73 (88) 94 12/19/16 16:00 96.7 82 18 138/68 (91) 98 12/19/16 11:42 96.5 82 18 124/66 (85) 96 I/O 12/19/16 12/19/16 12/19/16 12/20/16 12/20/16 12/20/16 07:00 15:00 23:00 07:00 15:00 23:00 Intake Total 360 ml 600 ml 60 ml Output Total 1120 ml 500 ml Balance -760 ml 600 ml 60 ml -500 ml Intake Oral 360 ml 600 ml 60 ml Output Urine Total 1100 ml 500 ml Drainage Total 20 ml # Voids 4 1 # Bowel Movements 0 1 Result Diagram: 12/17/1661412/17/16614 Imaging Last Impressions Lower Extremity Ultrasound 12/19/16 0000 Signed Impressions: Service Date/Time: Monday, December 19, 2016 11:59 - CONCLUSION: Negative for deep venous thrombosis. Addy Camarillo MD FACR Lumbar Spine X-Ray 12/16/16 0000 Signed Impressions: Service Date/Time: Friday, December 16, 2016 09:39 - CONCLUSION: Intraoperative images. Jesús Mckenzie MD Nerve Block 12/14/16 0000 Signed Impressions: Service Date/Time: Wednesday, December 14, 2016 12:23 - CONCLUSION: Uncomplicated fluoroscopically guided right L5 nerve root injection as above. Jesús Monzon Jr., MD Lumbar Spine MRI 12/11/16 0000 Signed Impressions: Service Date/Time: Sunday, December 11, 2016 18:46 - CONCLUSION: 1. At L3-4 there is a grade 1 retrolisthesis resulting in moderate stenosis of the canal at the lateral recesses and moderate bilateral foraminal stenosis. 2. At L4-5 there is fusion with a residual grade 1 anterolisthesis and mild lateral recess and foraminal encroachment bilaterally. 3. At L5-S1 there is a disc bulge and facet arthropathy with moderate right foraminal stenosis and some flattening of the right L5 nerve root. 4. No acute fracture. Conus intact. Charly Nichole MD Objective Remarks GENERAL: Alert, oriented 3, NAD. SKIN: Warm and dry. HEAD: Normocephalic. EYES: No scleral icterus. No injection or drainage. NECK: Supple, trachea midline. No JVD or lymphadenopathy. CARDIOVASCULAR: Regular rate and rhythm without murmurs, gallops, or rubs. RESPIRATORY: Breath sounds equal bilaterally. No accessory muscle use. GASTROINTESTINAL: Abdomen soft, non-tender, nondistended. MUSCULOSKELETAL: No cyanosis, or edema. Right leg pain on movements. BACK: Nontender without obvious deformity. No CVA tenderness. Procedures 12/16: L5-S1 decompressive laminectomy, interbody arthrodesis using Peek cage filled with autologous iliac crest bone graft, L5-S1 posterolateral fusion using autologous iliac crest bone graft, with demineralized bone matrix, L5-S1 instrumental fixation using transpedicular screws and rods, microsurgical dissection A/P Problem List: (1) Recurrent falls ICD Code: R29.6 - Repeated falls (2) Intractable back pain ICD Code: M54.9 - Dorsalgia, unspecified Status: Acute (3) Dehydration ICD Code: E86.0 - Dehydration (4) HTN (hypertension) ICD Code: I10 - Essential (primary) hypertension Assessment and Plan This is a 76-year-old male with a PMH of Anxiety, Depression, HTN, Hyperlipidemia, Hypothyroidism and Sleep Apnea who presented to the ER with complaints of severe back pain in addition to right leg pain x1 wk prior to this admission. Denies any injury or trauma. On arrival, BP 160/65, HR 88, O2 sat 93% on RA, Afebrile. CBC unremarkable. Chemistry essentially unremarkable except for GFR 56. MRI L-spine with L3-L4 grade 1 retrolisthesis resulting in moderate stenosis and moderate bilateral foraminal stenosis, L4-L5 with fusion and residual grade 1 anterolisthesis, L5-S1 disc bulge with moderate right foraminal stenosis and flattening of right L5 nerve root. - L3-L4 spondylolisthesis - Neurosurgery initially recommended non-surgical management with pain management, PT and epidural steroid injection ([facility]). - Status post decompressive laminectomy of L5-S1. Continue LSO when out of bed. Neurosurgery discontinued ANGEL drain. - Patient complains of itchiness on Percocet. Will switch to [place] PRN. Continue acetaminophen when necessary and Dilaudid when necessary for breakthrough. - Patient is on salmeterol 4 mg by mouth daily for 3 days (stop date 2016). - Neurosurgery cleared for discharge. Waiting for rehabilitation and arrangements. - Hypothyroidism - continue levothyroxine 112 g daily. - Hypertension - Currently normotensive. - Right calf pain - Doppler ultrasound indicated no DVT. Full code. SCDs. Discharge plan: Pending rehabilitation management, will discharge patient. If Cruz does not workout, patient will likely want to go home with home health. He does not want to go to SNF. Satya Sumner DO Dec 20, 2016 11:05 am
[2016-12-20 11:45] VITALS: BP 124/68; PULSE 94; RESP 18; TEMP 97; O2SAT 97
[2016-12-20] MEDS ORDERED: SYNT112T PO (16:22)
--- NOTE | 2016-12-20 16:24 | HHI.FF ---
Face to Face Verification Diagnosis: (1) Intractable back pain (2) Radiculopathy of leg (3) Osteoarthritis Physical Therapy Order: Evaluate and Treat, Improve ambulation, Strength and gait training Home Health Nursing Order: Medical education Signs/symptoms of disease process Nursing assessment with vital signs I have seen patient Igor Lynne on 12/20/16. My clinical findings support the need for the requested home health care services because: Ltd mobility - disease progression Deconditioned w/ increased weakness Limited ability to care for self Need for psychosocial assistance High risk of falls Infection w/ risk of complications I certify that my clinical findings support that this patient is homebound because: Post-op weakness Unsteady gait/balance Unsafe to leave home unassisted Unable to use public transportation Satya Sumner DO Dec 20, 2016 4:24 pm
[2016-12-20 17:19] VITALS: BP 125/71; PULSE 90; RESP 17; TEMP 96.7; O2SAT 97
--- NOTE | 2016-12-21 00:24 | HHI.DS ---
Discharge Summary Admission Date Dec 15, 2016 at 13:37 Discharge Date: Dec 20, 2016 Admitting Diagnosis intractable back pain (1) Recurrent falls ICD Code: R29.6 - Repeated falls (2) Intractable back pain ICD Code: M54.9 - Dorsalgia, unspecified Status: Acute (3) Dehydration ICD Code: E86.0 - Dehydration (4) HTN (hypertension) ICD Code: I10 - Essential (primary) hypertension Procedures 12/16: L5-S1 decompressive laminectomy, interbody arthrodesis using Peek cage filled with autologous iliac crest bone graft, L5-S1 posterolateral fusion using autologous iliac crest bone graft, with demineralized bone matrix, L5-S1 instrumental fixation using transpedicular screws and rods, microsurgical dissection Brief History - From Admission This is a 76-year-old male with a PMH of Anxiety, Depression, HTN, Hyperlipidemia, Hypothyroidism and Sleep Apnea who presented to the ER with complaints of severe back pain in addition to right leg pain x1 wk. Denies injury or trauma. Was seen at [facility] 12/09/16 for similar complaints, d/c' d home w/ Rx for Norflex and Percocet w/ Ortho follow up. Returned to [facility] several hours later on 12/09/16 w/ ongoing complaints. CT Abd/Pelvis w/ no acute findings. Pelvis X-ray w/ no evidence of bony pathology per records. D/c'd home once again, however returns now w/ ongoing severe pain, also notes radicular, shooting pain down RLE. Previously following w/ Dr. Espinal s/p Lumbar Sx 5yrs ago, has appt in 1mo. On arrival, BP 160/65, HR 88, O2 sat 93% on RA, Afebrile. CBC unremarkable. Chemistry essentially unremarkable except for GFR 56. MRI L-spine with L3-L4 grade 1 retrolisthesis resulting in moderate stenosis and moderate bilateral foraminal stenosis, L4-L5 with fusion and residual grade 1 anterolisthesis, L5-S1 disc bulge with moderate right foraminal stenosis and flattening of right L5 nerve root. Dr. Norris consulted by ER physician, recommended further eval by Neurosurgery if needed. S/p multiple doses of pain medication in ER w/ minimal improvement. CBC/BMP: 12/17/1615 12/17/1615 Imaging Last Impressions Lower Extremity Ultrasound 12/19/16 0000 Signed Impressions: Service Date/Time: Monday, December 19, 2016 11:59 - CONCLUSION: Negative for deep venous thrombosis. Addy Camarillo MD FACR Lumbar Spine X-Ray 12/16/16 0000 Signed Impressions: Service Date/Time: Friday, December 16, 2016 09:39 - CONCLUSION: Intraoperative images. Jesús Mckenzie MD Nerve Block 12/14/16 0000 Signed Impressions: Service Date/Time: Wednesday, December 14, 2016 12:23 - CONCLUSION: Uncomplicated fluoroscopically guided right L5 nerve root injection as above. Jesús Monzon Jr., MD Lumbar Spine MRI 12/11/16 0000 Signed Impressions: Service Date/Time: Sunday, December 11, 2016 18:46 - CONCLUSION: 1. At L3-4 there is a grade 1 retrolisthesis resulting in moderate stenosis of the canal at the lateral recesses and moderate bilateral foraminal stenosis. 2. At L4-5 there is fusion with a residual grade 1 anterolisthesis and mild lateral recess and foraminal encroachment bilaterally. 3. At L5-S1 there is a disc bulge and facet arthropathy with moderate right foraminal stenosis and some flattening of the right L5 nerve root. 4. No acute fracture. Conus intact. Charly Nichole MD PE at Discharge GENERAL: This is a well-nourished, well-developed patient, in no apparent distress. SKIN: No rashes, warm and dry HEAD: Atraumatic. Normocephalic. EYES: Pupils equal round and reactive. Extraocular motions intact. No scleral icterus. ENT: Nose without bleeding, or drainage, Airway patent. NECK: Trachea midline. Supple CARDIOVASCULAR: Regular rate and rhythm without murmurs, gallops, or rubs. RESPIRATORY: Bilateral breath sounds. No wheezes, rales, or rhonchi. GASTROINTESTINAL: Abdomen soft, non-tender, nondistended. Positive bowel sounds MUSCULOSKELETAL: Extremities without clubbing, cyanosis, or edema. NEUROLOGICAL: Awake and alert. Normal speech.no focal neurological deficit Pt update on day of discharge Patient is currently doing well. His symptoms are improved. No fever or chills. Hospital Course This is a 76-year-old male with a PMH of Anxiety, Depression, HTN, Hyperlipidemia, Hypothyroidism and Sleep Apnea who presented to the ER with complaints of severe back pain in addition to right leg pain x1 wk prior to this admission. Denies any injury or trauma. On arrival, BP 160/65, HR 88, O2 sat 93% on RA, Afebrile. CBC unremarkable. Chemistry essentially unremarkable except for GFR 56. MRI L-spine with L3-L4 grade 1 retrolisthesis resulting in moderate stenosis and moderate bilateral foraminal stenosis, L4-L5 with fusion and residual grade 1 anterolisthesis, L5-S1 disc bulge with moderate right foraminal stenosis and flattening of right L5 nerve root. - L3-L4 spondylolisthesis - Neurosurgery initially recommended non-surgical management with pain management, PT and epidural steroid injection ([facility]). - Status post decompressive laminectomy of L5-S1. Continue LSO when out of bed. Neurosurgery discontinued ANGEL drain. - Patient complains of itchiness on Percocet. Will switch to [place] PRN. Continue acetaminophen when necessary and Dilaudid when necessary for breakthrough. - Patient is on salmeterol 4 mg by mouth daily for 3 days (stop date 2016). - Neurosurgery cleared for discharge. Patient did not qualify for in- patient rehab per insurance company. - Patient was not interested in SNF. He was subsequently discharged home with home health. - Hypothyroidism - continue levothyroxine 112 g daily. - Hypertension - Currently normotensive. - Right calf pain - Doppler ultrasound indicated no DVT. Pt Condition on Discharge: Good Discharge Disposition: Disch w/ Home Health Serv Discharge Time: > 30 minutes Discharge Instructions DIET: Follow Instructions for: As Tolerated, No Restrictions Activities you can perform: Regular-No Restrictions Follow up Referrals: Neurosurgery with Michaela Chaudhry New Medications: Diazepam (Valium) 5 Mg Tab 5 MG PO Q8H PRN for MUSCLE SPASM, #30 TAB Hydrocodone-Acetaminophen (Hydrocodone-Acetaminophen) 7.5-325 mg Tab 1 TAB PO Q6H PRN for PAIN SCALE 5 TO 10, #20 TAB Methylprednisolone (Medrol) 4 Mg Tab 4 MG PO DAILY for Inflammation for 2 Days, #2 TAB [Calcium Carbonate Chew] () 500 MG CHEW 500 MG CHEW Q2H PRN for heartburn for 30 Days Continued Medications: Levothyroxine (Synthroid) 112 Mcg Tab 112 MCG PO DAILY for Thyroid, #30 TAB 3 Refills (This prescription has been renewed) Discontinued Medications: Oxycodone-Acetaminophen (Percocet) 10-325 mg Tab 1 TAB PO Q4H PRN for PAIN, TAB 0 Refills Satya Sumner DO Dec 21, 2016 00:24
== END 2016-12-20 21:45 | disposition home health service (06) | DRG 460 ==
LOC: NEPD 17:22 → NEDA 20:01 → NEPGCP 21:52 → OBSVTOIN 12-15 13:37 → N06B 12-15 20:38
PROVIDERS: ADMIT Hospitalist; ATTEND Hospitalist
PROC: 3E0R33Z Introduction of Anti-inflammatory into Spinal Canal, Percutaneous Approach (ICD-10-PCS; 2016-12-14)
PROC: 3E0R3BZ Introduction of Anesthetic Agent into Spinal Canal, Percutaneous Approach (ICD-10-PCS; 2016-12-14)
PROC: 0ST40ZZ Resection of Lumbosacral Disc, Open Approach (ICD-10-PCS; 2016-12-16)
PROC: 0SP004Z Removal of Internal Fixation Device from Lumbar Vertebral Joint, Open Approach (ICD-10-PCS; 2016-12-16)
PROC: 00NY0ZZ Release Lumbar Spinal Cord, Open Approach (ICD-10-PCS; 2016-12-16)
PROC: 0SG30AJ Fusion of Lumbosacral Joint with Interbody Fusion Device, Posterior Approach, Anterior Column, Open Approach (ICD-10-PCS; principal; 2016-12-16 08:53)
DX: M47.27 Other spondylosis with radiculopathy, lumbosacral region (principal); E86.0 Dehydration; T84.226A Displacement of internal fixation device of vertebrae, initial encounter; I10 Essential (primary) hypertension; M51.17 Intervertebral disc disorders with radiculopathy, lumbosacral region; R29.6 Repeated falls; E03.9 Hypothyroidism, unspecified; E78.5 Hyperlipidemia, unspecified; G47.30 Sleep apnea, unspecified; K21.9 Gastro-esophageal reflux disease without esophagitis; M10.9 Gout, unspecified; M21.371 Foot drop, right foot; M43.16 Spondylolisthesis, lumbar region; F32.9 Major depressive disorder, single episode, unspecified; F41.9 Anxiety disorder, unspecified; G89.29 Other chronic pain; M19.90 Unspecified osteoarthritis, unspecified site; M62.838 Other muscle spasm; M48.07 Spinal stenosis, lumbosacral region; Z85.828 Personal history of other malignant neoplasm of skin
CPT/HCPCS: 64483; 72100; 72120; 72131; 72148; 76000; 80048; 80053; 81001; 82948; 85025; 93005; 93971; 94150; 96361; 96372; 96374; 96375; 96376; J1170; G0378; G8987-GP; G8988-GP; J0131; J0690; J1100; J1200; J1580; J1644; J2270; J2360; J2405; J2920; J3370; J7030; J7050; J7120; J7509; L0200; L0484; L1960; Q9967

== ENCOUNTER 2017-01-01 09:58 | Emergency (ER) | payer OTHER, MEDICAID ==
[~2017-01-01] VITALS: Ht 175.3 cm; Wt 91.0 kg
[~2017-01-01 09:58] MED LIST changes: -ALBU8I INH; -ALLO300 PO; -COLC1TAB7 PO; +Calcium Carbonate Chew CHEW; +DIAZ5 PO; +HYDR-3580 PO; -LEVA500T PO; -LEVA750T PO; -LEVO.075 PO; -LUTE20CA PO; +MEDR4TAB PO; -PERC5TAB12 PO; -PRED20 PO; +SYNT112T PO
[2017-01-01 10:00] VITALS: BP 138/87; PULSE 92; RESP 14; TEMP 98.6; O2SAT 99
[2017-01-01] MEDS ORDERED: ALLO300T2 PO (11:30)
[2017-01-01] MEDS ORDERED: TRIA.1%T TOPICAL (11:58)
[2017-01-01] MEDS ORDERED: PRED20 PO (11:58)
--- NOTE | 2017-01-01 11:59 | PD ---
HPI Chief Complaint: Skin Problem Time Seen by Provider: 11:21 Travel History International Travel<30 days: No Contact w/Intl Traveler<30days: No Traveled to known affect area: No History of Present Illness HPI 76-year-old male presents to the emergency department for evaluation of itchy rash to his torso for the past 3 weeks. States he was here in the hospital and had back surgery. He states that since then he has had this itchy rash. The given Benadryl hospital which helped his rash. He is taking Benadryl at home with some improvement. He denies any pain. No fevers or chills. No chest pain or shortness breath. His back pain is much improved. No urinary symptoms. He has not followed up with his primary care physician for this issue. Patient denies any history of diabetes. Severity is mild. Alleviating factor is Benadryl. No exacerbating factors. Patient is wearing a back brace to his torso. 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) Cardiovascular Problems: Yes High Cholesterol: Yes (LDL is a little high) Chemotherapy: No Diabetes: No Diminished Hearing: No Endocrine: Yes Gastrointestinal Disorders: Yes GERD: Yes Genitourinary: No Hiatal Hernia: Yes Immune Disorder: No Kidney Stones: Yes (8 times) Musculoskeletal: Yes (back surgeries L4-L5 and C3) Neurologic: Yes Psychiatric: Yes Reproductive: No Respiratory: Yes Immunizations Current: Yes Radiation Therapy: No Renal Failure: No Sleep Apnea: Yes Thyroid Disease: Yes Ulcer: No Tetanus Vaccination: < 5 Years Past Surgical History Abdominal Surgery: Yes (Gall bladder removed 2011) Body Medical Devices: 2 screws in back Cardiac Surgery: No Cholecystectomy: Yes Ear Surgery: No Endocrine Surgery: No Eye Surgery: No Genitourinary Surgery: No Gynecologic Surgery: No Thoracic Surgery: No Other Surgery: Yes Social History Alcohol Use: Yes (RARE OCCASSION) Tobacco Use: No Substance Use: No Allergies-Medications (Allergen,Severity, Reaction): Coded Allergies: codeine (Verified Allergy, Severe, Nausea/Vomiting, 01/01/17) Reported Meds & Prescriptions Reported Meds & Active Scripts Active Triamcinolone Topical (Triamcinolone Acetonide) 0.1% Cream 1 Applic TOPICAL ONCE Prednisone 20 Mg Tab 40 Mg PO DAILY 5 Days Take 40 mg (2 tablets) daily for 5 days Medrol (Methylprednisolone) 4 Mg Tab 4 Mg PO DAILY 2 Days Valium (Diazepam) 5 Mg Tab 5 Mg PO Q8H PRN Hydrocodone-Acetaminophen 7.5-325 mg Tab 1 Tab PO Q6H PRN Synthroid (Levothyroxine Sodium) 112 Mcg Tab 112 Mcg PO DAILY [Calcium Carbonate Chew] 500 MG Chew 500 Mg CHEW Q2H PRN 30 Days Reported Allopurinol 300 Mg Tab 300 Mg PO DAILY Review of Systems Except as stated in HPI: all other systems reviewed are Neg Physical Exam Narrative GENERAL: Well-nourished, well-developed male patient, afebrile. SKIN: Focused skin assessment warm/dry. Patient has erythematous plaques/ patches to torso and bilateral upper extremities. HEAD: Normocephalic. Atraumatic. EYES: No scleral icterus. No injection or drainage. NECK: Supple, trachea midline. No JVD or lymphadenopathy. CARDIOVASCULAR: Regular rate and rhythm without murmurs, gallops, or rubs. RESPIRATORY: Breath sounds equal bilaterally. No accessory muscle use. Lungs sounds are clear to auscultation. GASTROINTESTINAL: Abdomen soft, non-tender, nondistended. MUSCULOSKELETAL: No cyanosis, or edema. BACK: Nontender without obvious deformity. No CVA tenderness. Data Data Last Documented VS Vital Signs Date Time Temp Pulse Resp B/P (MAP) Pulse Ox O2 Delivery O2 Flow Rate FiO2 01/01/17 12:05 01/01/17 10:00 98.6 92 14 99 Orders Orders Dexamethasone Inj (Decadron Inj) (01/01/17 12:00) Ed Discharge Order (01/01/17 11:59) MDM Medical Decision Making Medical Screen Exam Complete: Yes Emergency Medical Condition: Yes Medical Record Reviewed: Yes Differential Diagnosis Contact dermatitis versus urticaria versus allergic reaction versus eczema Narrative Course 76-year-old male presents to the emergency department for evaluation of rash this and ongoing for several weeks. Physical exam is consistent with contact dermatitis. Patient is given Decadron 8 mg IM in the emergency department. He' ll be discharged prescription for prednisone and triamcinolone cream. He is instructed to follow-up with primary care physician. He is to continue Benadryl [id number] as needed. He verbalizes agreement and understanding. The patient was discharged in stable condition with instructions, including return instructions and follow up instructions. Diagnosis Primary Impression: Contact dermatitis Qualified Codes: L24.9 - Irritant contact dermatitis, unspecified cause Referrals: Primary Care Physician 2 days Patient Instructions: Contact Dermatitis (ED), General Instructions Additional Instructions: Take prednisone as directed. Start this tomorrow. Use triamcinolone cream as directed. Follow-up with your primary care physician. Return to the emergency department for any acute worsening of symptoms. Med/Other Pt SpecificInfo: Prescription(s) given Scripts Triamcinolone Topical (Triamcinolone Topical) 0.1% Cream 1 APPLIC TOPICAL ONCE for Inflammation, #1 TUBE 0 Refills Prov: Stephani Hanson 01/01/17 Prednisone (Prednisone) 20 Mg Tab 40 MG PO DAILY for 5 Days, TAB 0 Refills Take 40 mg (2 tablets) daily for 5 days Prov: Stephani Hanson 01/01/17 Disposition: 01 DISCHARGE HOME Condition: Stable Stephani Hanson Jan 01, 2017 11:59
[2017-01-01] MEDS ORDERED: DEXAMETHASONE SOD PHOS 4 MG/ML VIAL IM ONE (12:00)
== END 2017-01-01 12:21 | disposition home or self-care (01) ==
LOC: NEPE 09:58
DX: L24.9 Irritant contact dermatitis, unspecified cause (principal)
CPT/HCPCS: 96372; 99284; J1100

== ENCOUNTER 2017-06-25 14:48 | Inpatient (IN) | payer OTHER, MEDICAID, MEDICARE ==
[~2017-06-25] VITALS: Ht 177.8 cm; Wt 95.0 kg
[~2017-06-25 14:48] MED LIST changes: +ALLO300T2 PO; +PRED20 PO; +TRIA.1%T TOPICAL
[2017-06-25 14:53] VITALS: BP 152/72; PULSE 89; RESP 18; TEMP 97.8; O2SAT 98
--- NOTE | 2017-06-25 14:58 | PD ---
HPI Chief Complaint: Hip pain Time Seen by Provider: 14:52 Travel History International Travel<30 days: No Contact w/Intl Traveler<30days: No Traveled to known affect area: No History of Present Illness HPI 77-year-old male with history of thyroid disease, lumbar radiculopathy and right foot drop with recent surgical intervention by dane Cool, presents emergency department for evaluation of right hip pain following a fall. Patient was cleaning his bed and re-arranging when he stepped backwards, tripping, falling onto his right hip. He experienced immediate pain, so severe that he "saw stars." He has been given 10 mg of morphine in route by [facility] states his pain is controlled at this time as long as he is lying on his left side and not moving. Denies any alterations in sensation. He has chronic right foot drop from lumbar spine issues. He denies any fever or chills. Denies any chest pain or tightness. He does not take any anticoagulants. His last meal was yesterday and he did have some water prior to arrival. 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) Cardiovascular Problems: Yes High Cholesterol: Yes (LDL is a little high) Chemotherapy: No Diabetes: No Diminished Hearing: No Endocrine: Yes Gastrointestinal Disorders: Yes GERD: Yes Genitourinary: No Hiatal Hernia: Yes Immune Disorder: No Kidney Stones: Yes (8 times) Musculoskeletal: Yes (back surgeries L4-L5 and C3) Neurologic: Yes Psychiatric: Yes Reproductive: No Respiratory: Yes Immunizations Current: Yes Radiation Therapy: No Renal Failure: No Sleep Apnea: Yes Thyroid Disease: Yes Ulcer: No Past Surgical History Abdominal Surgery: Yes (Gall bladder removed 2011) Body Medical Devices: 2 screws in back Cardiac Surgery: No Cholecystectomy: Yes Ear Surgery: No Endocrine Surgery: No Eye Surgery: No Genitourinary Surgery: No Gynecologic Surgery: No Thoracic Surgery: No Other Surgery: Yes Social History Alcohol Use: Yes (RARE OCCASSION) Tobacco Use: No Substance Use: No Allergies-Medications (Allergen,Severity, Reaction): Coded Allergies: codeine (Verified Adverse Reaction, Severe, Nausea/Vomiting, 06/25/17) Reported Meds & Prescriptions Reported Meds & Active Scripts Active Synthroid (Levothyroxine Sodium) 112 Mcg Tab 112 Mcg PO DAILY Reported Zantac (Ranitidine HCl) 150 Mg Tab 150 Mg PO DAILY Allopurinol 300 Mg Tab 300 Mg PO DAILY Review of Systems Except as stated in HPI: all other systems reviewed are Neg Physical Exam Narrative GENERAL: Well-nourished male patient, lying in the stretcher in no acute distress SKIN: Focused skin assessment warm/dry. HEAD: Atraumatic. Normocephalic. EYES: Pupils equal and round. No scleral icterus. No injection or drainage. ENT: No nasal bleeding or discharge. Mucous membranes pink and moist. NECK: Trachea midline. No JVD. CARDIOVASCULAR: Regular rate and rhythm. No murmur appreciated. RESPIRATORY: No accessory muscle use. Clear to auscultation. Breath sounds equal bilaterally. GASTROINTESTINAL: Abdomen soft, non-tender, nondistended. Hepatic and splenic margins not palpable. MUSCULOSKELETAL: No obvious deformities. No clubbing. No cyanosis. No edema. Patient does have right foot drop. Distal pulses are palpable. Cap refill is within normal limits. There is some mild shortening of the right lower extremity. No definite rotation. NEUROLOGICAL: Awake and alert. No obvious cranial nerve deficits. Motor grossly within normal limits. Normal speech. PSYCHIATRIC: Appropriate mood and affect; insight and judgment normal. Data Data Last Documented VS Vital Signs Date Time Temp Pulse Resp B/P (MAP) Pulse Ox O2 Delivery O2 Flow Rate FiO2 06/25/17 14:55 89 17 98 Room Air 06/25/17 14:53 97.8 152/72 (98) Orders Orders Iv Access Insert/Monitor (06/25/17 14:57) Electrocardiogram (06/25/17 ) Complete Blood Count With Diff (06/25/17 14:57) Basic Metabolic Panel (Bmp) (06/25/17 14:57) Coag Profile (06/25/17 14:57) Chest, Single Ap (06/25/17 ) Hip, Uni(Ap&Lat) W Ap Pelvis (06/25/17 ) Urinalysis - C+S If Indicated (06/25/17 16:08) Labs Laboratory Tests Test 06/25/17 15:05 White Blood Count 18.4 TH/MM3 Red Blood Count 4.08 MIL/MM3 Hemoglobin 13.0 GM/DL Hematocrit 38.2 % Mean Corpuscular Volume 93.8 FL Mean Corpuscular Hemoglobin 31.9 PG Mean Corpuscular Hemoglobin Concent 34.0 % Red Cell Distribution Width 14.0 % Platelet Count 329 TH/MM3 Mean Platelet Volume 7.5 FL Neutrophils (%) (Auto) 87.0 % Lymphocytes (%) (Auto) 6.0 % Monocytes (%) (Auto) 7.0 % Eosinophils (%) (Auto) 0.0 % Basophils (%) (Auto) 0.0 % Neutrophils # (Auto) 16.0 TH/MM3 Lymphocytes # (Auto) 1.1 TH/MM3 Monocytes # (Auto) 1.3 TH/MM3 Eosinophils # (Auto) 0.0 TH/MM3 Basophils # (Auto) 0.0 TH/MM3 CBC Comment DIFF FINAL Differential Comment Prothrombin Time 11.4 SEC Prothromb Time International Ratio 1.1 RATIO Activated Partial Thromboplast Time 18.4 SEC Blood Urea Nitrogen 21 MG/DL Creatinine 1.25 MG/DL Random Glucose 99 MG/DL Calcium Level 9.2 MG/DL Sodium Level 144 MEQ/L Potassium Level 3.8 MEQ/L Chloride Level 109 MEQ/L Carbon Dioxide Level 25.4 MEQ/L Anion Gap 10 MEQ/L Estimat Glomerular Filtration Rate 56 ML/MIN [facility] Medical Decision Making Medical Screen Exam Complete: Yes Emergency Medical Condition: Yes Medical Record Reviewed: Yes Differential Diagnosis Fracture versus contusion versus dislocation versus sprain Narrative Course 77-year-old male presents emergency department for evaluation of right hip pain following a trip and fall. Patient has been treated with morphine prior to arrival and his pain is currently controlled. X-ray imaging confirms an impacted right femoral neck fracture. I spoke with Dr. Scotty Sanford's PA-C. Patient will be admitted to medicine, n.p.o. after midnight, for surgical intervention tomorrow. Preop labs, x-ray, and EKG are complete. Patient does have a leukocytosis. This could possibly be secondary to a stress reaction secondary to the fracture. UA is added to preop labs. I spoke with Dr. Montemayor. [facility] Laboratory Tests Test 06/25/17 15:05 White Blood Count 18.4 TH/MM3 Red Blood Count 4.08 MIL/MM3 Hemoglobin 13.0 GM/DL Hematocrit 38.2 % Mean Corpuscular Volume 93.8 FL Mean Corpuscular Hemoglobin 31.9 PG Mean Corpuscular Hemoglobin Concent 34.0 % Red Cell Distribution Width 14.0 % Platelet Count 329 TH/MM3 Mean Platelet Volume 7.5 FL Neutrophils (%) (Auto) 87.0 % Lymphocytes (%) (Auto) 6.0 % Monocytes (%) (Auto) 7.0 % Eosinophils (%) (Auto) 0.0 % Basophils (%) (Auto) 0.0 % Neutrophils # (Auto) 16.0 TH/MM3 Lymphocytes # (Auto) 1.1 TH/MM3 Monocytes # (Auto) 1.3 TH/MM3 Eosinophils # (Auto) 0.0 TH/MM3 Basophils # (Auto) 0.0 TH/MM3 CBC Comment DIFF FINAL Differential Comment Prothrombin Time 11.4 SEC Prothromb Time International Ratio 1.1 RATIO Activated Partial Thromboplast Time 18.4 SEC Blood Urea Nitrogen 21 MG/DL Creatinine 1.25 MG/DL Random Glucose 99 MG/DL Calcium Level 9.2 MG/DL Sodium Level 144 MEQ/L Potassium Level 3.8 MEQ/L Chloride Level 109 MEQ/L Carbon Dioxide Level 25.4 MEQ/L Anion Gap 10 MEQ/L Estimat Glomerular Filtration Rate 56 ML/MIN Diagnosis Primary Impression: Hip fracture, right Qualified Codes: S72.001A - Fracture of unspecified part of neck of right femur, initial encounter for closed fracture Admitting Information Admitting Physician Requests: Admit Condition: Stable Lennie Lemus June 25, 2017 14:58
[2017-06-25] MEDS ORDERED: ZANT150T2 PO (15:05)
[2017-06-25 15:34] LABS: HEMATOCRIT 38.2 % (39.0-51.0); LYMPHOCYTE # 1.1 TH/MM3 (1.0-4.8); MEAN CELL VOLUME 93.8 FL (80.0-100.0); MEAN CORPUSCULAR HEMOGLOBIN 31.9 PG (27.0-34.0); MEAN PLATELET VOLUME 7.5 FL (7.0-11.0); MONOCYTE # 1.3 TH/MM3 (0-0.9); PLATELET COUNT 329 TH/MM3 (150-450); RED BLOOD COUNT 4.08 MIL/MM3 (4.50-5.90); WHITE BLOOD COUNT 18.4 TH/MM3 (4.0-11.0)
--- NOTE | 2017-06-25 15:39 | RADRPT ---
EXAM DATE/TIME: 06/25/2017 15:21 [facility] COMPARISON: No previous studies available for comparison. INDICATIONS : Fall pain in right hip. MEDICAL HISTORY : None. SURGICAL HISTORY : Lumbar fusion. ENCOUNTER: Initial ACUITY: 1 day PAIN SCORE: 9/10 LOCATION: Right hip FINDINGS: 3 views of the right hip and pelvis. Right femoral neck fracture with impaction. Hip joint alignment within normal limits. Surgical hardware in the lower lumbar spine. CONCLUSION: Impacted right femoral neck fracture. Linus Dee MD on June 25, 2017 at 15:37 Board Certified Radiologist. This report was verified electronically.
--- NOTE | 2017-06-25 15:39 | RADRPT ---
EXAM DATE/TIME: 06/25/2017 15:13 [facility] COMPARISON: No previous studies available for comparison. INDICATIONS : Evaluate for pneumonia, pneumothorax, and communicable disease, short of breath. MEDICAL HISTORY : None. SURGICAL HISTORY : None. ENCOUNTER: Initial ACUITY: 1 day PAIN SCORE: 0/10 LOCATION: Bilateral chest FINDINGS: Single AP view of the chest. Elevated right hemidiaphragm. Prominent central pulmonary vasculature Th e lungs are clear. Cardiomediastinal silhouette within normal limits. No evidence of pleural effusion or pneumothorax. CONCLUSION: Mild pulmonary vascular congestion and low lung volumes. No other acute cardiopul monary disease identified. Linus Dee MD on June 25, 2017 at 15:35 Board Certified Radiologist. This report was verified electronically.
[2017-06-25 15:52] LABS: BICARBONATE 25.4 MEQ/L (21.0-32.0); CALCIUM 9.2 MG/DL (8.5-10.1); CREATININE 1.25 MG/DL (0.60-1.30)
[2017-06-25 15:56] LABS: INTERNATIONAL NORMALIZED RATIO 1.1 RATIO; PROTHROMBIN TIME - PATIENT 11.4 SEC (9.8-11.6)
[2017-06-25] MEDS ORDERED: MAGNESIUM HYDROXIDE SUSP 30 ML CUP PO PRN (17:00)
[2017-06-25] MEDS ORDERED: SENNOSIDES 8.6 MG TAB PO PRN (17:00)
[2017-06-25] MEDS ORDERED: MORPHINE SULFATE 2 MG/ML SYRINGE IV PUSH PRN (17:00)
[2017-06-25] MEDS ORDERED: SODIUM CHLORIDE 0.9% FLUSH 10 ML FLUSH IV FLUSH PRN (17:00)
[2017-06-25] MEDS ORDERED: NALOXONE HCL 0.4 MG/ML AMP IV PUSH PRN (17:00)
[2017-06-25] MEDS ORDERED: BISACODYL 10 MG SUPP RECTAL PRN (17:00)
[2017-06-25] MEDS ORDERED: ONDANSETRON HCL 4 MG/2 ML VIAL IVP PRN (17:00)
[2017-06-25] MEDS ORDERED: ACETAMINOPHEN 325 MG TAB PO PRN (17:00)
[2017-06-25] MEDS ORDERED: LACTULOSE SYRUP 20 GM/30 ML CUP PO PRN (17:00)
[2017-06-25] MEDS ORDERED: oxyCODONE/ACETAMINOPHEN 5 MG/325 MG TAB PO PRN (17:00)
--- NOTE | 2017-06-25 17:20 | HHI.HP ---
HPI Service [facility] Primary Care Physician Geni Hays MD Admission Diagnosis r hip fracture; leukocytosis Diagnoses: (1) Hip fracture, right (2) Fall Diagnosis: Principal Chief Complaint: I fell on my hip Travel History International Travel<30 Days: No Contact w/Intl Traveler <30 Da: No Traveled to Known Affected Are: No History of Present Illness 77-year-old male with past medical history significant for hypothyroidism, hyperlipidemia, gout, sleep apnea, kidney stones, and lumbar radiculopathy with right foot drop with recent decompressive laminectomy by Dr. Mancilla performed on November 2016. Patient presents to the emergency department via [facility] after falling at home. Patient states that he was taking his bed apart when he tripped over the bed frame as this was on wheels causing him to fall and landed on his right hip. He denies any head trauma, dizziness, lightheadedness, chest pain, or heart palpitations prior to fall or afterwards. He reports that as soon as he fell he fell he had excruciating pain to the right hip 10/10 which radiated down his right leg. He immediately knew it was broken. He tells me that even when the [facility] came to pick him up he was in excruciating amount of pain and this was worse with movement. Currently is resting in ER stretcher and states that his pain is about 5/10, much improved with pain medication. Prior to fall patient reports doing well and denies any recent fevers, chills, nausea, vomiting, diarrhea, headaches, dizziness, lightheadedness, shortness of breath, cough or chest pain. He is being followed by [facility] for physical therapy and had future plans to have right foot injections due to foot drop. Review of Systems Except as stated in HPI: all other systems reviewed are Neg Past Family Social History Past Medical History Hypothyroidism Sleep apnea Hyperlipidemia Lumbar radiculopathy Right foot drop Gout Renal stones GERD Past Surgical History Laminectomy with fusion L5-S1 and removal of malpositioned L4 screw on 12/16/16 C3 fusion L4 and L5 fusion Cholecystectomy Reported Medications Reported Meds & Active Scripts Active Synthroid (Levothyroxine Sodium) 112 Mcg Tab 112 Mcg PO DAILY Reported Zantac (Ranitidine HCl) 150 Mg Tab 150 Mg PO DAILY Allopurinol 300 Mg Tab 300 Mg PO DAILY Allergies: Coded Allergies: codeine (Verified Adverse Reaction, Severe, Nausea/Vomiting, 06/25/17) Family History Father: Skin cancer which metastasized to the brain Mother: Hodgkin's lymphoma Social History Tobacco: Denies Alcohol: Seldom Illicit drug use: Denies Physical Exam Vital Signs Vital Signs Date Time Temp Pulse Resp B/P (MAP) Pulse Ox O2 Delivery O2 Flow Rate FiO2 06/25/17 14:55 89 17 98 Room Air 06/25/17 14:53 97.8 89 18 152/72 (98) 98 Physical Exam GENERAL: This is a well-nourished, well-developed patient, in no apparent distress. SKIN: No rashes, ecchymoses or lesions. Cool and dry. HEAD: Atraumatic. Normocephalic. No temporal or scalp tenderness. EYES: Pupils equal round and reactive. Extraocular motions intact. No scleral icterus. No injection or drainage. ENT: Nose without bleeding, purulent drainage. Throat without erythema. Uvula midline. Airway patent. NECK: Trachea midline. No JVD or lymphadenopathy. Supple, nontender. CARDIOVASCULAR: Regular rate and rhythm without murmurs, gallops, or rubs. RESPIRATORY: Clear to auscultation. Breath sounds equal bilaterally. No wheezes , rales, or rhonchi. GASTROINTESTINAL: Abdomen soft, non-tender, nondistended. No palpable masses. No guarding. MUSCULOSKELETAL: Extremities without clubbing, cyanosis, or edema. No joint tenderness, effusion, or edema noted. No calf tenderness. Right leg/hip mobility limited secondary to pain. Right foot drop noted, + sensation and movement of toes with <3 second capillary refill. NEUROLOGICAL: Awake and alert, 3. Cranial nerves II through XII grossly intact. Motor and sensory grossly within normal limits. 5/5 muscle strength in all muscle groups except right lower extremity. Normal speech. Laboratory Laboratory Tests Test 06/25/17 15:05 White Blood Count 18.4 Red Blood Count 4.08 Hemoglobin 13.0 Hematocrit 38.2 Mean Corpuscular Volume 93.8 Mean Corpuscular Hemoglobin 31.9 Mean Corpuscular Hemoglobin Concent 34.0 Red Cell Distribution Width 14.0 Platelet Count 329 Mean Platelet Volume 7.5 Neutrophils (%) (Auto) 87.0 Lymphocytes (%) (Auto) 6.0 Monocytes (%) (Auto) 7.0 Eosinophils (%) (Auto) 0.0 Basophils (%) (Auto) 0.0 Neutrophils # (Auto) 16.0 Lymphocytes # (Auto) 1.1 Monocytes # (Auto) 1.3 Eosinophils # (Auto) 0.0 Basophils # (Auto) 0.0 CBC Comment DIFF FINAL Differential Comment Prothrombin Time 11.4 Prothromb Time International Ratio 1.1 Activated Partial Thromboplast Time 18.4 Blood Urea Nitrogen 21 Creatinine 1.25 Random Glucose 99 Calcium Level 9.2 Sodium Level 144 Potassium Level 3.8 Chloride Level 109 Carbon Dioxide Level 25.4 Anion Gap 10 Estimat Glomerular Filtration Rate 56 Result Diagram: 06/25/17 1505 06/25/17 1505 Imaging Last Impressions Hip and Pelvis X-Ray 06/25/17 0000 Signed Impressions: Service Date/Time: Sunday, June 25, 2017 15:21 - CONCLUSION: Impacted right femoral neck fracture. Linus Dee MD Chest X-Ray 06/25/17 0000 Signed Impressions: Service Date/Time: Sunday, June 25, 2017 15:13 - CONCLUSION: Mild pulmonary vascular congestion and low lung volumes. No other acute cardiopulmonary disease identified. MD Gatito Camachoi VTE Risk Assessment Caprini VTE Risk Assessment: Mod/High Risk (score >= 2) VTE Pharm Contraindication: Caprini Risk Assessment Model Point Value = 1 Point Value = 2 Point Value = 3 Point Value = 5 Age 41-60 Minor surgery BMI > 25 kg/m2 Swollen legs Varicose veins or History of unexplained or recurrent spontaneous Oral contraceptives or hormone replacement Sepsis (< 1 month) Serious lung disease, including pneumonia (< 1 month) Abnormal pulmonary function Acute myocardial infarction Congestive heart failure (< 1 month) History of inflammatory bowel disease Medical patient at bed rest Age 61-74 Arthroscopic surgery Major open surgery (> 45 min) Laparoscopic surgery (> 45 min) Malignancy Confined to bed (> 72 hours) Immobilizing plaster cast Central venous access Age >= 75 History of VTE Family history of VTE Factor V Leiden Prothrombin [id number] Lupus anticoagulant Anticardiolipin antibodies Elevated serum homocysteine Heparin-induced thrombocytopenia Other congenital or acquired thrombophilia Stroke (< 1 month) Elective arthroplasty Hip, pelvis, or leg fracture Acute spinal cord injury (< 1 month) Prophylaxis Regimen Total Risk Factor Score Risk Level Prophylaxis Regimen 0-1 Low Early ambulation 2 Moderate Order ONE of the following: *Sequential Compression Device (SCD) *Heparin 5000 units SQ BID 3-4 Higher Order ONE of the following medications: *Heparin 5000 units SQ TID *Enoxaparin/Lovenox 40 mg SQ daily (WT < 150 kg, CrCl > 30 mL/min) *Enoxaparin/Lovenox 30 mg SQ daily (WT < 150 kg, CrCl > 10-29 mL/min) *Enoxaparin/Lovenox 30 mg SQ BID (WT < 150 kg, CrCl > 30 mL/min) AND/OR *Sequential Compression Device (SCD) 5 or more Highest Order ONE of the following medications: *Heparin 5000 units SQ TID (Preferred with Epidurals) *Enoxaparin/Lovenox 40 mg SQ daily (WT < 150 kg, CrCl > 30 mL/min) *Enoxaparin/Lovenox 30 mg SQ daily (WT < 150 kg, CrCl > 10-29 mL/min) *Enoxaparin/Lovenox 30 mg SQ BID (WT < 150 kg, CrCl > 30 mL/min) AND *Sequential Compression Device (SCD) Assessment and Plan Assessment and Plan 77-year-old male with past medical history significant for hypothyroidism, hyperlipidemia, gout, sleep apnea, kidney stones, and lumbar radiculopathy with right foot drop with recent decompressive laminectomy by Dr. Mancilla performed on November 2016. Patient presents to the emergency department via [facility] after falling at home. Mechanical fall resulting in hip fracture -Hip x-ray completed in ER reviewed, impacted right femoral neck fracture. -Patient received a total of 10 mg of IV morphine while in the [facility] -ER provider has consulted or so, spoke to Dr. Fajardo's PA, patient will be admitted and kept n.p.o. for surgical intervention tomorrow -Pain control with p.o. Percocet, IV morphine for breakthrough pain, bowel regimen Leukocytosis -CBC on admission with WBC count 18.4 with left shift, neutrophils 87.0, afebrile, no tachycardia -Chest x-ray completed in ED reviewed, mill pulmonary vascular congestion and low lung volumes, no other acute disease. No respiratory complaints, 98% on room air. -Check UA, leukocytosis likely related to stress following fracture, follow labs in the a.m. Hypothyroidism GERD Gout -Continue home dose levothyroxine 112 mcg daily, allopurinol 300 mg daily, and Zantac 150 mg daily per DVT prophylaxis-Wagner's/SCDs hold chemical anticoagulation in anticipation for surgery in the AM Physician Certification 2 Midnight Certification Type: Admission for Inpatient Services Order for Inpatient Services The services are ordered in accordance with Medicare regulations or non- Medicare payer requirements, as applicable. In the case of services not specified as inpatient-only, they are appropriately provided as inpatient services in accordance with the 2-midnight benchmark. Estimated LOS (days): 4 days is the estimated time the patient will need to remain in the hospital, assuming treatment plan goals are met and no additional complications. Post-Hospital Plan: Home Problem Qualifiers (1) Hip fracture, right: Qualified Codes: S72.001A - Fracture of unspecified part of neck of right femur , initial encounter for closed fracture Kenia Baptiste June 25, 2017 17:20
[2017-06-25 17:42] VITALS: BP 128/81; TEMP 97.9
[2017-06-25 20:22] LABS: BILIRUBIN, URINE NEG (NEG); BLOOD, URINE NEG (NEG); GLUCOSE,URINE NEG (NEG); KETONE, URINE NEG (NEG); MUCUS URINE FEW /lpf (OCC); NITRITE,URINE NEG (NEG); PH, URINE 5.5 (5.0-8.5); URINE COLOR YELLOW (YELLW/STRAW); URINE LEUKOCYTE ESTERASE NEG (NEG)
[2017-06-25 20:30] VITALS: BP 141/79; PULSE 82; RESP 18; TEMP 97.9; O2SAT 93
[2017-06-25] MEDS: SODIUM CHLORIDE 0.9% FLUSH 10 ML FLUSH IV FLUSH SCH (21:20)
[2017-06-25] MEDS: FAMOTIDINE 20 MG TAB PO SCH (21:21)
[2017-06-25] MEDS: DOCUSATE SODIUM 50 MG/SENNA 8.6 MG TAB PO SCH (21:21)
[2017-06-25] MEDS ORDERED: SODIUM CHLORID 0.9% 500 ML IV PRN (23:30)
[2017-06-25] MEDS ORDERED: POVIDONE IODINE 5% (ANTISEPSIS KIT) 4 APPLICATIONS EACH NARE PRN (23:30)
[2017-06-25] MEDS ORDERED: CHLORHEXIDINE GLUCONATE 2 % 1 PACK (2 CLOTHS) TOPICAL PRN (23:30)
[2017-06-25] MEDS ORDERED: LACTATED RINGER'S 1000 ML IV PRN (23:30)
[2017-06-25 23:58] VITALS: BP 144/71; PULSE 86; RESP 18; TEMP 98.5; O2SAT 96
[2017-06-26] MEDS: oxyCODONE/ACETAMINOPHEN 10 MG/325 MG TAB PO PRN ×2 (04:46→15:58)
[2017-06-26] MEDS: LEVOTHYROXINE SODIUM 112 MCG TAB PO SCH (04:55)
[2017-06-26 05:34] VITALS: BP 155/94; PULSE 84; RESP 18; TEMP 98; O2SAT 97
[2017-06-26 06:24] LABS: AUTOMATED NEUTROPHIL # 8.4 TH/MM3 (1.8-7.7); BASOPHIL % 0.4 % (0.0-2.0); EOSINOPHIL # 0.1 TH/MM3 (0-0.4); EOSINOPHIL % 0.6 % (0.0-4.0); HEMOGLOBIN 12.8 GM/DL (13.0-17.0); LYMPHOCYTE # 1.1 TH/MM3 (1.0-4.8); MEAN CELL VOLUME 92.9 FL (80.0-100.0); MEAN CORPUSCULAR HGB CONC 35.6 % (32.0-36.0); MEAN PLATELET VOLUME 7.8 FL (7.0-11.0); MONO % 7.7 % (0.0-8.0); MONOCYTE # 0.8 TH/MM3 (0-0.9); NEUT % 80.3 % (16.0-70.0); PLATELET COUNT 305 TH/MM3 (150-450); RED BLOOD COUNT 3.88 MIL/MM3 (4.50-5.90); RED CELL DISTRIBUTION WIDTH 14.1 % (11.6-17.2); WHITE BLOOD COUNT 10.4 TH/MM3 (4.0-11.0)
[2017-06-26 06:33] LABS: BICARBONATE 25.6 MEQ/L (21.0-32.0); CALCIUM 8.9 MG/DL (8.5-10.1); CREATININE 1.21 MG/DL (0.60-1.30)
--- NOTE | 2017-06-26 07:03 | PD.ORT.PN ---
Subjective Subjective Remarks Has history of multiple back surgeries and right foot drop. He was at home yesterday when changing the mattress and tripped over the frame of the bed and had immediate pain to right hip and was unable to ambulate. No other orthopedic complaints Objective Vitals Vital Signs Date Time Temp Pulse Resp B/P (MAP) Pulse Ox O2 Delivery O2 Flow Rate FiO2 06/26/17 05:34 98.0 84 18 155/94 (114) 97 06/25/17 23:58 98.5 86 18 144/71 (95) 96 06/25/17 20:30 97.9 82 18 141/79 (99) 93 06/25/17 17:42 97.9 76 16 128/81 (97) 99 06/25/17 14:55 89 17 98 Room Air 06/25/17 14:53 97.8 89 18 152/72 (98) 98 I/O 06/25/17 06/25/17 06/25/17 06/26/17 06/26/17 06/26/17 07:00 15:00 23:00 07:00 15:00 23:00 Intake Total 0 ml Output Total 550 ml Balance -550 ml Intake Oral 0 ml Output Urine Total 550 ml # Bowel Movements 1 Result Diagram: 06/26/17 0520 06/26/17 0520 Other Results Laboratory Tests Test 06/25/17 15:05 Prothromb Time International Ratio 1.1 RATIO Prothrombin Time 11.4 SEC (9.8-11.6) Imaging Last 72 hours Impressions Hip and Pelvis X-Ray 06/25/17 0000 Signed Impressions: Service Date/Time: Sunday, June 25, 2017 15:21 - CONCLUSION: Impacted right femoral neck fracture. Linus Dee MD Chest X-Ray 06/25/17 0000 Signed Impressions: Service Date/Time: Sunday, June 25, 2017 15:13 - CONCLUSION: Mild pulmonary vascular congestion and low lung volumes. No other acute cardiopulmonary disease identified. Linus Dee MD Objective Remarks Bilateral upper extremities: Full range of motion neurovascularly intact Left lower extremity: Full range of motion and neurovascularly intact Right lower extremity: Pain to palpation of her hip. Pain with movement. He has no pain to palpation of knee or ankle. Distally he has intact sensation but has a positive foot drop. Ankle range of motion is from neutral to 45 of plantarflexion Assessment & Plan Assessment and Plan Right femoral neck fracture displaced N.p.o. Sign consents Surgery this morning for right hip hemiarthroplasty with Dr. Fajardo After surgery will need put his boot to avoid plantar contractures of ankle with chronic foot drop Palmer Chaudhry Jr. June 26, 2017 07:03
[2017-06-26] MEDS ORDERED: HYDR-3583 PO (07:06)
[2017-06-26] MEDS ORDERED: WALKER WHEELS/F1 MIS (07:06)
[2017-06-26] MEDS ORDERED: CALCTAB19 PO (07:06)
[2017-06-26] MEDS ORDERED: XARE10TA PO (07:06)
[2017-06-26] MEDS ORDERED: VITA500012 PO (07:06)
[2017-06-26] MEDS ORDERED: GENTAMICIN SULFATE 80 MG/2 ML VIAL ONE (07:11)
[2017-06-26] MEDS ORDERED: ceFAZolin INJ 1,000 MG VIAL ONE (07:11)
[2017-06-26] MEDS ORDERED: VANCOMYCIN HCL 1000 MG VIAL ONE (07:11)
[2017-06-26] MEDS ORDERED: SODIUM CHLOR 0.9% 250 ML INJ 250 ML ONE (07:12)
[2017-06-26] MEDS ORDERED: TRANEXAMIC ACID INJ 1,425 MG in SODIUM CHLORIDE 0.9% INJ 100 ML IV ONE (07:15)
[2017-06-26] MEDS ORDERED: SUGAMMADEX SODIUM 200 MG/2 ML VIAL IV PUSH ONE (07:31)
[2017-06-26] MEDS ORDERED: ACETAMINOPHEN 1000 MG/100 ML 100 ML IV ONE (07:31)
[2017-06-26] MEDS ORDERED: HYDROmorphone HCL PF 2 MG/ML VIAL ONE (07:32)
--- NOTE | 2017-06-26 07:53 | MB ---
cc: Cali Fajardo MD DATE: 06/26/2017 REASON FOR CONSULTATION: Right femoral neck fracture. CONSULTING PHYSICIAN: Dr. Montemayor. HISTORY OF PRESENT ILLNESS: Igor is a 77-year-old who had a fall yesterday. He states that he was cleaning underneath his bed and had taken the mattresses off the frame. He subsequently tripped and fell. He describes a mechanical fall. He denies dizziness, syncope or loss of consciousness. He fell on his right hip. He had immediate right hip pain. He was unable to stand or ambulate. He states that he was on the floor for approximately 4 hours before being able to move. He presented to the emergency room via EMS. X-rays revealed a displaced right femoral neck fracture. He is currently awake and alert on the orthopedic floor. His only complaint is his right hip. Pain is worse with movement and is improved with rest. PAST MEDICAL HISTORY: Illnesses, hypothyroidism, high cholesterol, lumbar degenerative disk disease, right ankle foot drop, gout, reflux. PAST SURGICAL HISTORY: Laminectomy with L5-S1 fusion, C3 fusion, cholecystectomy. MEDICATIONS: 1. Synthroid. 2. Zantac. 3. Allopurinol. ALLERGIES: CODEINE. FAMILY HISTORY: Positive for skin cancer in his father and Hodgkin's lymphoma in his mother. SOCIAL HISTORY: The patient denies alcohol or drug use. He drinks alcohol occasionally. REVIEW OF SYSTEMS: The patient denies headache, visual changes, neck pain, chest pain, shortness of breath, abdominal pain, nausea, vomiting, recent weight loss, fevers or chills or numbness or tingling of the upper extremities. He complains of right hip pain. The pain is worse with movement. PHYSICAL EXAMINATION: GENERAL: The patient is a well-developed, well-nourished, 77-year-old male in no acute distress. He is awake and alert. He is alert and oriented x 3. He is mildly overweight. VITAL SIGNS: Temperature 98.0, pulse 84, respirations 18, blood pressure 155/94, O2 saturations 97% on room air. HEENT: The patient is normocephalic. Pupils are equal. NECK: Soft, nontender. The trachea is in the midline. ABDOMEN: Soft, nontender, nondistended. EXTREMITIES: Examination of the bilateral upper extremities reveals no pain with shoulder, elbow and wrist motion. He has intact sensation in all fingers. He has good cap refill in all fingers. Skin is intact. Radial pulses palpable. Examination of the left leg reveals no pain with hip, knee or ankle motion. Skin is intact. Dorsalis pedis pulses palpable. Sensation is intact. Skin is intact. Examination of the right leg reveals pain with any hip motion. He has no tenderness of his knee, tibia or ankle. Skin is intact. Dorsalis pedis pulses palpable. He is unable to dorsiflex his ankle. His right leg is slightly shorter than the left. LABORATORY DATA: The patient has a white blood cell count of 10.4, hematocrit 36.0, platelet count of 305. INR is 1.1. BUN is 21, creatinine is 1.21. Vitamin D level is 22.9. X-RAYS: X-rays of the right hip are reviewed. X-rays reveal a displaced right femoral neck fracture. IMPRESSION: 1. Displaced right femoral neck fracture. 2. Right ankle foot drop. 3. Vitamin D deficiency. PLAN: Treatment options were discussed with the patient. At this point, I would recommend right hip hemiarthroplasty. The risks of surgery include bleeding, infection, injury to arteries, nerves and blood vessels, nonunion, malunion, hip dislocation, leg length discrepancies, as well as medical complications including blood clot, stroke, heart attack and . All questions were answered. Postoperatively, we will place the patient on DVT prophylaxis to help prevent blood clots. I also placed him on supplemental vitamin D replacement. A mid-level provider in my office, nurse practitioner or PA, may see this patient on a follow-up basis and continue to implement the objective of this plan including: Starting or adjusting medications, injections of muscle, tendon, bursa or joints, cast application, orthotic or brace application, physical therapy, further radiographic studies including x-ray, MRI, CT, ultrasounds or bone scan, vascular studies, neurologic studies, or other specialist consultations, and proceeding with surgical management as appropriate. MD RADHA Whitlock/LAINEY , 07:27 AM , 07:51 AM
[2017-06-26 08:42] VITALS: O2SAT 97
--- NOTE | 2017-06-26 08:46 | PD.OP ---
cc: Cali Bravo MD Operative Report Date of Surgery: June 26, 2017 Preoperative Diagnosis: Displaced right femoral neck fracture Postoperative Diagnosis: Procedure: Right hip hemiarthroplasty Anesthesia: General Surgeon: Cali Bravo Rn Maternity(s): JOE Hernandez PA-C The surgical procedure was assisted by my physician research assistant professor. My P.A. presence was necessary throughout this case for the manipulation and positioning of the surgical extremity. My P.A. was assisting me throughout the duration of this procedure. The skill set of a physician research assistant professor was medically necessary to complete this procedure. During the surgical case the surgical scrub technician was working at the back table and the physician research assistant professor was directly assisting me. Operation and Findings: PLAN OF ACTIVITY Weight bear as tolerated. IMPLANTS USED DePuy Corail size [14] stem with size [54] bipolar head and [+8] neck. DETAILS OF PROCEDURE This patient was brought into the operating room and placed on the OR table. The patient was given anesthesia. The patient received IV antibiotics. The patient was then placed in lateral decubitus position. The hip and leg were prepped with alcohol, followed by Hibiclens and draped in a usual sterile fashion. Clean air was used for this procedure. Time out procedure was performed. The procedure began with a 5 inch incision over the posterolateral hip. The subcutaneous tissue was dissected with the Bovie. The iliotibial band were split in line with fibers. The Charnley retractor was placed. The piriformis and external rotators were released from the femur and tagged with a #1 Vicryl suture. The capsule is now incised and tagged with #1 Vicryl. The femoral neck fracture was now visualized. A corkscrew was now used to remove the femoral head. The femoral head was sized and measured. Soft tissue was now protected. The hip skid was placed underneath the femoral neck. An oscillating saw was used to make a femoral neck cut. At this point attention was turned to preparation of the proximal femur. A box osteotome was used to remove the lateral cortex of the femoral neck. The T- handle reamer was used to open the femoral canal. Next, the canal was broached. A lateralizing reamer was used to help lateralize the prosthesis. The canal was broached up to size 14. A calcar planar was now placed over the broach. The femoral neck fracture extended a few millimeters below the calcar. A cable was now placed around the calcar region to help prevent any propagation of the original femoral neck fracture. Cable was carefully passed around the femur to avoid injury to neurovascular structures. The cable was tensioned appropriately. At this point a trial head and neck were placed. The hip was reduced. The patient was found to have excellent stability with good range of motion. Trial components were removed. Soft tissue and bone were thoroughly irrigated. A Corail stem was now opened. The stem was now impacted into the proximal femur. Care was taken to keep appropriate anteversion. The head and neck were now impacted onto the stem. The hip was again reduced. The hip was found to have good range of motion and good stability. Leg lengths were clinically equal. The wound was thoroughly irrigated. The capsule, piriformis and iliotibial band were closed with #1 Vicryl. Subcutaneous tissue was closed with 3-0 Vicryl. The skin was closed with jose manuel. A sterile dressing was applied with Primapore. The patient was placed into a knee immobilizer. The patient was awakened and transferred to the recovery room in stable condition. Needle and sponge counts were correct. Cali Bravo MD June 26, 2017 08:46
[2017-06-26] MEDS: DOCUSATE SODIUM 50 MG/SENNA 8.6 MG TAB PO SCH ×2 (09:00→21:37)
[2017-06-26] MEDS ORDERED: Post-op Orders (for Pharmacy) XX ONE (09:00)
[2017-06-26] MEDS ORDERED: FAMOTIDINE 20 MG/2 ML VIAL IV ONE (09:00)
[2017-06-26] MEDS: ALLOPURINOL 300 MG TAB PO SCH (09:00)
[2017-06-26] MEDS: FAMOTIDINE 20 MG TAB PO SCH ×2 (09:00→21:37)
[2017-06-26] MEDS ORDERED: APREPITANT 40 MG CAP PO ONE (09:00)
[2017-06-26] MEDS ORDERED: ERGOCALCIFEROL (VIT D2) 50,000 UNIT CAP PO ONE (10:00)
--- NOTE | 2017-06-26 10:49 | EKG ---
Date Performed: 06/25/2017 Time Performed: 16:55:45 PTAGE: 77 years EKG: Sinus rhythm BORDERLINE LEFT AXIS DEVIATION INCOMPLETE RIGHT BUNDLE BRANCH BLOCK BORDERLINE ECG Since the PREVIOUS TRACING , no significant change noted PREVIOUS TRACIN06/25/2017 16.53 DOCTOR: Callum Garnica Interpretating Date/Time 06/27/2017 07:00:26
[2017-06-26] MEDS ORDERED: MIDAZOLAM HCL 2 MG/2 ML VIAL ONE (11:02)
[2017-06-26] MEDS ORDERED: SODIUM CHLORIDE 0.9% 10 ML VIAL IV FLUSH ONE (12:00)
[2017-06-26] MEDS ORDERED: DEXAMETHASONE SOD PHOS 4 MG/ML VIAL IV ONE (12:00)
[2017-06-26] MEDS ORDERED: ePHEDrine/NS 25 MG/5 ML SYRINGE IV ONE (12:00)
[2017-06-26] MEDS ORDERED: ROCURONIUM INJ 50 MG/5 ML SYRINGE IV PUSH ONE (12:00)
[2017-06-26] MEDS ORDERED: LACTATED RINGER'S 1000 ML INJ 2,000 ML IV ONE (12:00)
[2017-06-26] MEDS ORDERED: ONDANSETRON HCL 4 MG/2 ML VIAL IV PUSH ONE (12:00)
[2017-06-26] MEDS ORDERED: LIDOCAINE HCL 1% PF 5 ML SYRINGE OTHER ONE (12:00)
[2017-06-26] MEDS ORDERED: PHENYLEPH/NS 1000 MCG/10 ML SYR IV ONE (12:00)
[2017-06-26] MEDS ORDERED: PROPOFOL 200 MG/20 ML AMP IV ONE (12:00)
[2017-06-26] MEDS: CHOLECALCIFEROL (VIT D3) 5000 UNIT CAP PO SCH (13:00)
[2017-06-26 15:34] VITALS: BP 156/72; PULSE 79; RESP 18; TEMP 97.3; O2SAT 95
[2017-06-26] MEDS: ceFAZolin 2 GM PREMIX 50 ML IV SCH ×2 (15:58→21:42)
--- NOTE | 2017-06-26 16:04 | HHI.PR ---
Subjective Remarks Pain control. Denies any major complaints including chest pain, shortness of breath, fevers or chills. Denies nausea, vomiting. Objective Vitals Vital Signs Date Time Temp Pulse Resp B/P (MAP) Pulse Ox O2 Delivery O2 Flow Rate FiO2 06/26/17 15:34 97.3 79 18 156/72 (100) 95 06/26/17 12:30 Nasal Cannula 2.00 06/26/17 12:15 98.3 76 20 149/65 (93) 95 Nasal Cannula 2 06/26/17 12:00 76 20 149/65 (93) 95 Nasal Cannula 2 06/26/17 11:45 76 20 156/70 (98) 95 Nasal Cannula 2 06/26/17 11:30 70 20 164/69 (100) 93 Nasal Cannula 2 06/26/17 11:15 68 20 149/77 (101) 92 Nasal Cannula 2 06/26/17 10:57 97.8 68 20 132/74 (93) 92 Nasal Cannula 2 06/26/17 08:42 97 21 06/26/17 05:34 98.0 84 18 155/94 (114) 97 06/25/17 23:58 98.5 86 18 144/71 (95) 96 06/25/17 20:30 97.9 82 18 141/79 (99) 93 06/25/17 17:42 97.9 76 16 128/81 (97) 99 I/O 06/25/17 06/25/17 06/25/17 06/26/17 06/26/17 06/26/17 07:00 15:00 23:00 07:00 15:00 23:00 Intake Total 0 ml 1400 ml Output Total 550 ml 150 ml Balance -550 ml 1250 ml Intake Oral 0 ml Other 1400 ml Output Urine Total 550 ml Estimated Blood Loss 150 ml # Bowel Movements 1 Result Diagram: 06/26/17 0520 06/26/17 0520 Imaging Last 72 hours Impressions Hip and Pelvis X-Ray 06/25/17 0000 Signed Impressions: Service Date/Time: Sunday, June 25, 2017 15:21 - CONCLUSION: Impacted right femoral neck fracture. Linus Dee MD Chest X-Ray 06/25/17 0000 Signed Impressions: Service Date/Time: Sunday, June 25, 2017 15:13 - CONCLUSION: Mild pulmonary vascular congestion and low lung volumes. No other acute cardiopulmonary disease identified. Linus Dee MD Objective Remarks AAOx3 Clear lungs S1S2 RRR, no MRG abdomen soft, nt no edema in lower extremities. good pedal pulses BL right leg with dressing covering postsurgical wound C/D/I. A/P Problem List: (1) Hip fracture, right ICD Code: S72.001A - Fracture of unspecified part of neck of right femur, initial encounter for closed fracture Status: Acute (2) Fall ICD Code: W19.XXXA - Unspecified fall, initial encounter (3) Leukocytosis ICD Code: D72.829 - Elevated white blood cell count, unspecified Status: Resolved (4) Hypothyroidism ICD Code: E03.9 - Hypothyroidism Status: Chronic Assessment and Plan 77-year-old male with past medical history significant for hypothyroidism, hyperlipidemia, gout, sleep apnea, kidney stones, and lumbar radiculopathy with right foot drop with recent decompressive laminectomy by Dr. Mancilla performed on November 2016. Patient presents to the emergency department via [facility] after falling at home. Mechanical fall resulting in hip fracture -Hip x-ray completed in ER reviewed, impacted right femoral neck fracture. -Patient received a total of 10 mg of IV morphine while in the EVAC -ER provider has consulted or so, spoke to Dr. Fajardo's PA, patient will be admitted and kept n.p.o. for surgical intervention tomorrow -Pain control with p.o. Percocet, IV morphine for breakthrough pain, bowel regimen - 06/26 the patient status post right hip arthroplasty. Pain control as per orthopedic surgery. Leukocytosis -CBC on admission with WBC count 18.4 with left shift, neutrophils 87.0, afebrile, no tachycardia -Chest x-ray completed in ED reviewed, mill pulmonary vascular congestion and low lung volumes, no other acute disease. No respiratory complaints, 98% on room air. -Check UA, leukocytosis likely related to stress following fracture, follow labs in the a.m. 06/26 urinalysis negative. Symptoms are resolving. Likely stress-induced. Hypothyroidism GERD Gout -Continue home dose levothyroxine 112 mcg daily, allopurinol 300 mg daily, and Zantac 150 mg daily per DVT prophylaxis-Wagner's/SCDs, Lovenox subcutaneously. Discharge Planning Discharge pending clearance by orthopedic surgery. Problem Qualifiers (1) Hip fracture, right: Qualified Codes: S72.001A - Fracture of unspecified part of neck of right femur , initial encounter for closed fracture (2) Leukocytosis: Qualified Codes: D72.828 - Other elevated white blood cell count (3) Hypothyroidism: Qualified Codes: E03.9 - Hypothyroidism, unspecified Alexei Browne MD June 26, 2017 16:04
--- NOTE | 2017-06-26 17:18 | RADRPT ---
EXAM DATE/TIME: 06/26/2017 16:53 [facility] COMPARISON: HIP RIGHT (AP&LAT 2/3VWS) W AP PELVIS, June 25, 2017, 15:21. INDICATIONS : Post op right hip. MEDICAL HISTORY : None. SURGICAL HISTORY : Lumbar fusion. ENCOUNTER: Initial ACUITY: 1 day PAIN SCORE: Non-responsive. LOCATION: Right hip. FINDINGS: Right total hip arthroplasty is present. The hardware is intact. Alignment is anatomic. The adjacent pelvis is unremarkable. Contralateral left hip remains intact. Low lumbar hardware fusion is again no brent. CONCLUSION: Satisfactory appearance post right LORRI Andrew Godwin MD on June 26, 2017 at 17:15 Board Certified Radiologist. This report was verified electronically.
[2017-06-26 18:07] VITALS: O2SAT 95
[2017-06-26 21:01] VITALS: BP 133/74; PULSE 78; RESP 16; TEMP 97.6; O2SAT 92
[2017-06-26] MEDS: SODIUM CHLORIDE 0.9% FLUSH 10 ML FLUSH IV FLUSH SCH (21:42)
[2017-06-27 01:26] VITALS: BP 123/66; PULSE 75; RESP 16; TEMP 97.8; O2SAT 93
[2017-06-27 04:43] VITALS: BP 140/72; PULSE 84; RESP 16; TEMP 98.6; O2SAT 95
[2017-06-27 05:17] LABS: AUTOMATED NEUTROPHIL # 8.9 TH/MM3 (1.8-7.7); BASOPHIL % 0.2 % (0.0-2.0); EOSINOPHIL % 0.2 % (0.0-4.0); HEMATOCRIT 33.5 % (39.0-51.0); HEMOGLOBIN 11.7 GM/DL (13.0-17.0); LYMPH % 6.7 % (9.0-44.0); LYMPHOCYTE # 0.7 TH/MM3 (1.0-4.8); MEAN CELL VOLUME 93.5 FL (80.0-100.0); MEAN CORPUSCULAR HEMOGLOBIN 32.6 PG (27.0-34.0); MEAN CORPUSCULAR HGB CONC 34.9 % (32.0-36.0); MEAN PLATELET VOLUME 7.6 FL (7.0-11.0); MONO % 7.5 % (0.0-8.0); MONOCYTE # 0.8 TH/MM3 (0-0.9); NEUT % 85.4 % (16.0-70.0); PLATELET COUNT 279 TH/MM3 (150-450); RED BLOOD COUNT 3.58 MIL/MM3 (4.50-5.90); WHITE BLOOD COUNT 10.4 TH/MM3 (4.0-11.0)
[2017-06-27] MEDS: LEVOTHYROXINE SODIUM 112 MCG TAB PO SCH (05:26)
[2017-06-27] MEDS: ceFAZolin 2 GM PREMIX 50 ML IV SCH (05:27)
[2017-06-27 05:44] LABS: ALBUMIN 2.8 GM/DL (3.4-5.0); AST (GOT) 22 U/L (15-37); BICARBONATE 25.7 MEQ/L (21.0-32.0); BLOOD UREA NITROGEN 19 MG/DL (7-18); CHLORIDE 108 MEQ/L (98-107); GLOMERULAR FILTRATION RATE 65 ML/MIN (>89); GLUCOSE,RANDOM 111 MG/DL (74-106); MAGNESIUM 2.1 MG/DL (1.5-2.5); SODIUM (NA) 142 MEQ/L (136-145)
[2017-06-27 05:45] LABS: ALT (GPT) 24 U/L (12-78); PHOSPHORUS 2.7 MG/DL (2.5-4.9)
[2017-06-27 05:47] LABS: ALKALINE PHOSPHATASE 78 U/L (45-117); TOTAL BILIRUBIN ADULT 0.7 MG/DL (0.2-1.0); TOTAL PROTEIN 5.5 GM/DL (6.4-8.2)
--- NOTE | 2017-06-27 06:51 | PD.ORT.PN ---
Subjective Subjective Remarks Doing well status post surgery POD 1 Objective Vitals Vital Signs Date Time Temp Pulse Resp B/P (MAP) Pulse Ox O2 Delivery O2 Flow Rate FiO2 06/27/17 04:43 98.6 84 16 140/72 (94) 95 06/27/17 01:26 97.8 75 16 123/66 (85) 93 06/26/17 21:45 Room Air 06/26/17 21:01 97.6 78 16 133/74 (93) 92 06/26/17 18:07 95 21 06/26/17 15:34 97.3 79 18 156/72 (100) 95 06/26/17 12:30 Nasal Cannula 2.00 06/26/17 12:15 98.3 76 20 149/65 (93) 95 Nasal Cannula 2 06/26/17 12:00 76 20 149/65 (93) 95 Nasal Cannula 2 06/26/17 11:45 76 20 156/70 (98) 95 Nasal Cannula 2 06/26/17 11:30 70 20 164/69 (100) 93 Nasal Cannula 2 06/26/17 11:15 68 20 149/77 (101) 92 Nasal Cannula 2 06/26/17 10:57 97.8 68 20 132/74 (93) 92 Nasal Cannula 2 06/26/17 08:42 97 21 I/O 06/26/17 06/26/17 06/26/17 06/27/17 06/27/17 06/27/17 07:00 15:00 23:00 07:00 15:00 23:00 Intake Total 0 ml 1400 ml 850 ml Output Total 550 ml 150 ml 500 ml Balance -550 ml 1250 ml 350 ml Intake Oral 0 ml 850 ml Other 1400 ml Output Urine Total 550 ml 500 ml Estimated Blood Loss 150 ml # Bowel Movements 1 0 Result Diagram: 06/27/17 0450 06/27/17 0450 Imaging Last 72 hours Impressions Hip and Pelvis X-Ray 06/25/17 0000 Signed Impressions: Service Date/Time: Sunday, June 25, 2017 15:21 - CONCLUSION: Impacted right femoral neck fracture. Linus Dee MD Chest X-Ray 06/25/17 0000 Signed Impressions: Service Date/Time: Sunday, June 25, 2017 15:13 - CONCLUSION: Mild pulmonary vascular congestion and low lung volumes. No other acute cardiopulmonary disease identified. Linus Dee MD Objective Remarks Bilateral upper extremities: Full range of motion neurovascularly intact Left lower extremity: Full range of motion and neurovascularly intact Right lower extremity: Clean dry dressings intact. Knee immobilizer in place. Mild swelling. Distally intact sensation with continued foot drop. Assessment & Plan Assessment and Plan Right hip hemiarthroplasty Weightbearing as tolerated with posterior hip precautions Dry dressings. Begin changing Primapore day 2. Take note that surgical tape is over incision and must remain in place. Lovenox Case management for discharge placement to rehab versus home. Lives with girlfriend and she works during the day. Follow-up appointment Dr. Fajardo or PA in 2 weeks Palmer Chaudhry Jr. June 27, 2017 06:51
[2017-06-27 07:33] VITALS: BP 142/76; PULSE 73; RESP 19; TEMP 98.3; O2SAT 94
[2017-06-27] MEDS: SODIUM CHLORIDE 0.9% FLUSH 10 ML FLUSH IV FLUSH SCH ×2 (08:23→19:51)
[2017-06-27] MEDS: DOCUSATE SODIUM 50 MG/SENNA 8.6 MG TAB PO SCH ×2 (08:26→19:50)
[2017-06-27] MEDS: CHOLECALCIFEROL (VIT D3) 5000 UNIT CAP PO SCH (08:26)
[2017-06-27] MEDS: ALLOPURINOL 300 MG TAB PO SCH (08:26)
[2017-06-27] MEDS: FAMOTIDINE 20 MG TAB PO SCH ×2 (08:26→19:50)
[2017-06-27] MEDS: ENOXAPARIN SODIUM 30 MG/0.3 ML SYRINGE SQ SCH (08:28)
[2017-06-27 11:27] VITALS: BP 140/71; PULSE 81; RESP 18; TEMP 98.2; O2SAT 93
[2017-06-27] MEDS ORDERED: METHOCARBAMOL 500 MG TAB PO ONE (12:45)
[2017-06-27 15:41] VITALS: BP 116/57; PULSE 83; RESP 18; TEMP 98.1; O2SAT 91
--- NOTE | 2017-06-27 18:17 | HHI.PR ---
Subjective Remarks The patient states he worked with PT. Pain control. Denies fevers or chills. Denies chest pain or shortness of breath. Objective Vitals Vital Signs Date Time Temp Pulse Resp B/P (MAP) Pulse Ox O2 Delivery O2 Flow Rate FiO2 06/27/17 15:41 98.1 83 18 116/57 (76) 91 06/27/17 11:27 98.2 81 18 140/71 (94) 93 06/27/17 07:33 98.3 73 19 142/76 (98) 94 06/27/17 07:14 Room Air 06/27/17 04:43 98.6 84 16 140/72 (94) 95 06/27/17 01:26 97.8 75 16 123/66 (85) 93 06/26/17 21:45 Room Air 06/26/17 21:01 97.6 78 16 133/74 (93) 92 I/O 06/26/17 06/26/17 06/26/17 06/27/17 06/27/17 06/27/17 07:00 15:00 23:00 07:00 15:00 23:00 Intake Total 0 ml 1400 ml 850 ml 850 ml Output Total 550 ml 150 ml 500 ml 500 ml Balance -550 ml 1250 ml 350 ml 350 ml Intake Oral 0 ml 850 ml 850 ml Other 1400 ml Output Urine Total 550 ml 500 ml 500 ml Estimated Blood Loss 150 ml # Bowel Movements 1 0 0 Result Diagram: 06/27/17 0450 06/27/17 0450 Imaging Last Impressions Hip and Pelvis X-Ray 06/26/17 0846 Signed Impressions: Service Date/Time: Monday, June 26, 2017 16:53 - CONCLUSION: Satisfactory appearance post right LORRI Andrew Godwin MD Chest X-Ray 06/25/17 0000 Signed Impressions: Service Date/Time: Sunday, June 25, 2017 15:13 - CONCLUSION: Mild pulmonary vascular congestion and low lung volumes. No other acute cardiopulmonary disease identified. Linus Dee MD Objective Remarks AAOx3 Clear lungs S1S2 RRR, no MRG abdomen soft, nt no edema in lower extremities. good pedal pulses BL right leg with dressing covering postsurgical wound C/D/I. Procedures Right hip hemiarthroplasty A/P Problem List: (1) Hip fracture, right ICD Code: S72.001A - Fracture of unspecified part of neck of right femur, initial encounter for closed fracture Status: Acute (2) Fall ICD Code: W19.XXXA - Unspecified fall, initial encounter (3) Leukocytosis ICD Code: D72.829 - Elevated white blood cell count, unspecified Status: Resolved (4) Hypothyroidism ICD Code: E03.9 - Hypothyroidism Status: Chronic Assessment and Plan 77-year-old male with past medical history significant for hypothyroidism, hyperlipidemia, gout, sleep apnea, kidney stones, and lumbar radiculopathy with right foot drop with recent decompressive laminectomy by Dr. Mancilla performed on November 2016. Patient presents to the emergency department via [facility] after falling at home. Mechanical fall resulting in hip fracture -Hip x-ray completed in ER reviewed, impacted right femoral neck fracture. -Patient received a total of 10 mg of IV morphine while in the [facility] -ER provider has consulted or so, spoke to Dr. Fajardo's PA, patient will be admitted and kept n.p.o. for surgical intervention tomorrow -Pain control with p.o. Percocet, IV morphine for breakthrough pain, bowel regimen - 06/27 the patient status post right hip arthroplasty. Pain control as per orthopedic surgery. Leukocytosis -CBC on admission with WBC count 18.4 with left shift, neutrophils 87.0, afebrile, no tachycardia -Chest x-ray completed in ED reviewed, mill pulmonary vascular congestion and low lung volumes, no other acute disease. No respiratory complaints, 98% on room air. -Check UA, leukocytosis likely related to stress following fracture, follow labs in the a.m. 06/27 urinalysis negative. Leukocytosis resolving. Likely stress-induced. Hypothyroidism GERD Gout -Continue home dose levothyroxine 112 mcg daily, allopurinol 300 mg daily, and Zantac 150 mg daily per DVT prophylaxis-Wagner's/SCDs, Lovenox subcutaneously. Discharge Planning Discharge pending clearance by orthopedic surgery. Possible discharge in a.m. Problem Qualifiers (1) Hip fracture, right: Qualified Codes: S72.001A - Fracture of unspecified part of neck of right femur , initial encounter for closed fracture (2) Leukocytosis: Qualified Codes: D72.828 - Other elevated white blood cell count (3) Hypothyroidism: Qualified Codes: E03.9 - Hypothyroidism, unspecified Alexei Browne MD June 27, 2017 18:17
[2017-06-27] MEDS: oxyCODONE/ACETAMINOPHEN 10 MG/325 MG TAB PO PRN (19:50)
[2017-06-27 20:00] VITALS: BP 144/74; PULSE 90; RESP 17; TEMP 97.9; O2SAT 95
[2017-06-28 00:01] VITALS: BP 127/68; PULSE 84; RESP 17; TEMP 97.7; O2SAT 95
[2017-06-28] MEDS: LEVOTHYROXINE SODIUM 112 MCG TAB PO SCH (06:06)
--- NOTE | 2017-06-28 06:41 | PD.ORT.PN ---
Subjective Subjective Remarks Doing well status post surgery Objective Vitals Vital Signs Date Time Temp Pulse Resp B/P (MAP) Pulse Ox O2 Delivery O2 Flow Rate FiO2 06/28/17 00:01 97.7 84 17 127/68 (87) 95 06/27/17 20:00 97.9 90 17 144/74 (97) 95 06/27/17 19:55 Room Air 06/27/17 15:41 98.1 83 18 116/57 (76) 91 06/27/17 11:27 98.2 81 18 140/71 (94) 93 06/27/17 07:33 98.3 73 19 142/76 (98) 94 06/27/17 07:14 Room Air I/O 06/27/17 06/27/17 06/27/17 06/28/17 06/28/17 06/28/17 07:00 15:00 23:00 07:00 15:00 23:00 Intake Total 850 ml 360 ml Output Total 900 ml 300 ml Balance -50 ml 60 ml Intake Oral 850 ml 360 ml Output Urine Total 900 ml 300 ml # Voids 1 # Bowel Movements 0 0 Result Diagram: 06/27/17 0450 06/27/17 0450 Imaging Last 72 hours Impressions Hip and Pelvis X-Ray 06/25/17 0000 Signed Impressions: Service Date/Time: Sunday, June 25, 2017 15:21 - CONCLUSION: Impacted right femoral neck fracture. Linus Dee MD Chest X-Ray 06/25/17 0000 Signed Impressions: Service Date/Time: Sunday, June 25, 2017 15:13 - CONCLUSION: Mild pulmonary vascular congestion and low lung volumes. No other acute cardiopulmonary disease identified. Linus Dee MD Objective Remarks Bilateral upper extremities: Full range of motion neurovascularly intact Left lower extremity: Full range of motion and neurovascularly intact Right lower extremity: Clean dry dressings intact. Knee immobilizer in place. Mild swelling. Distally intact sensation with continued foot drop. Assessment & Plan Assessment and Plan Right hip hemiarthroplasty POD 2 Weightbearing as tolerated with posterior hip precautions Dry dressings. Begin changing Primapore day 2. Take note that surgical tape is over incision and must remain in place. Lovenox Case management for discharge placement to rehab versus home. Lives with girlfriend and she works during the day. Follow-up appointment Dr. Fajardo or PA in 2 weeks Palmer Chaudhry Jr. June 28, 2017 06:41
[2017-06-28] MEDS: FAMOTIDINE 20 MG TAB PO SCH ×2 (07:37→21:31)
[2017-06-28] MEDS: CHOLECALCIFEROL (VIT D3) 5000 UNIT CAP PO SCH (07:37)
[2017-06-28] MEDS: DOCUSATE SODIUM 50 MG/SENNA 8.6 MG TAB PO SCH ×2 (07:37→21:31)
[2017-06-28] MEDS: ALLOPURINOL 300 MG TAB PO SCH (07:38)
[2017-06-28] MEDS: SODIUM CHLORIDE 0.9% FLUSH 10 ML FLUSH IV FLUSH SCH ×2 (07:38→21:32)
[2017-06-28] MEDS: ENOXAPARIN SODIUM 30 MG/0.3 ML SYRINGE SQ SCH (07:38)
[2017-06-28 08:00] VITALS: BP 137/67; PULSE 82; RESP 20; TEMP 98.2; O2SAT 93
[2017-06-28 12:00] VITALS: BP 124/63; PULSE 87; RESP 20; TEMP 97.8; O2SAT 94
[2017-06-28] MEDS: oxyCODONE/ACETAMINOPHEN 10 MG/325 MG TAB PO PRN (14:19)
[2017-06-28 16:04] VITALS: BP 132/62; PULSE 90; RESP 16; TEMP 97.9; O2SAT 92
--- NOTE | 2017-06-28 16:20 | HHI.PR ---
Subjective Remarks pain controlled tolerating Pt hoping to go to [facility] re[facility] Objective Vitals Vital Signs Date Time Temp Pulse Resp B/P (MAP) Pulse Ox O2 Delivery O2 Flow Rate FiO2 06/28/17 16:04 97.9 90 16 132/62 (85) 92 06/28/17 12:00 97.8 87 20 124/63 (83) 94 06/28/17 08:00 98.2 82 20 137/67 (90) 93 06/28/17 07:42 Room Air 06/28/17 00:01 97.7 84 17 127/68 (87) 95 06/27/17 20:00 97.9 90 17 144/74 (97) 95 06/27/17 19:55 Room Air I/O 06/27/17 06/27/17 06/27/17 06/28/17 06/28/17 06/28/17 07:00 15:00 23:00 07:00 15:00 23:00 Intake Total 850 ml 360 ml Output Total 900 ml 300 ml Balance -50 ml 60 ml Intake Oral 850 ml 360 ml Output Urine Total 900 ml 300 ml # Voids 1 # Bowel Movements 0 0 Result Diagram: 06/27/17 0450 06/27/17 0450 Objective Remarks AAOx3 Clear lungs S1S2 RRR, no MRG abdomen soft, nt no edema in lower extremities. good pedal pulses BL right leg with dressing covering postsurgical wound C/D/I. Procedures Right hip hemiarthroplasty A/P Problem List: (1) Hip fracture, right ICD Code: S72.001A - Fracture of unspecified part of neck of right femur, initial encounter for closed fracture Status: Acute (2) Fall ICD Code: W19.XXXA - Unspecified fall, initial encounter (3) Leukocytosis ICD Code: D72.829 - Elevated white blood cell count, unspecified Status: Resolved (4) Hypothyroidism ICD Code: E03.9 - Hypothyroidism Status: Chronic Assessment and Plan 77-year-old male with past medical history significant for hypothyroidism, hyperlipidemia, gout, sleep apnea, kidney stones, and lumbar radiculopathy with right foot drop with recent decompressive laminectomy by Dr. Mancilla performed on November 2016. Patient presents to the emergency department via [facility] after falling at home. Mechanical fall resulting in hip fracture -Hip x-ray completed in ER reviewed, impacted right femoral neck fracture. -Patient received a total of 10 mg of IV morphine while in the EVAC -ER provider has consulted or so, spoke to Dr. Fajardo's PA, patient will be admitted and kept n.p.o. for surgical intervention tomorrow -Pain control with p.o. Percocet, IV morphine for breakthrough pain, bowel regimen - 06/28 the patient status post right hip arthroplasty. Pain control as per orthopedic surgery. Leukocytosis -CBC on admission with WBC count 18.4 with left shift, neutrophils 87.0, afebrile, no tachycardia -Chest x-ray completed in ED reviewed, mill pulmonary vascular congestion and low lung volumes, no other acute disease. No respiratory complaints, 98% on room air. -Check UA, leukocytosis likely related to stress following fracture, follow labs in the a.m. 06/28 urinalysis negative. Leukocytosis resolving. Likely stress-induced. Hypothyroidism GERD Gout -Continue home dose levothyroxine 112 mcg daily, allopurinol 300 mg daily, and Zantac 150 mg daily per DVT prophylaxis-Wagner's/SCDs, Lovenox subcutaneously. Discharge Planning Patient cleared to be discharged by orthopedic surgery. Discharge pending insurance authorization for rehab. Possible DC in a.m. Problem Qualifiers (1) Hip fracture, right: Qualified Codes: S72.001A - Fracture of unspecified part of neck of right femur , initial encounter for closed fracture (2) Leukocytosis: Qualified Codes: D72.828 - Other elevated white blood cell count (3) Hypothyroidism: Qualified Codes: E03.9 - Hypothyroidism, unspecified Alexei Browne MD June 28, 2017 16:20
[2017-06-28 20:00] VITALS: BP 144/74; PULSE 94; RESP 18; TEMP 98.3; O2SAT 93
[2017-06-29 00:01] VITALS: BP 133/65; PULSE 85; RESP 18; TEMP 98.1; O2SAT 94
[2017-06-29] MEDS: LEVOTHYROXINE SODIUM 112 MCG TAB PO SCH (05:48)
[2017-06-29] MEDS: oxyCODONE/ACETAMINOPHEN 10 MG/325 MG TAB PO PRN ×2 (05:48→14:11)
--- NOTE | 2017-06-29 06:31 | PD.ORT.PN ---
Subjective Subjective Remarks POD 3 s/p right hip hemiarthroplasty doing well. pain controlled out of bed with walker Objective Vitals Vital Signs Date Time Temp Pulse Resp B/P (MAP) Pulse Ox O2 Delivery O2 Flow Rate FiO2 06/29/17 00:01 98.1 85 18 133/65 (87) 94 06/28/17 20:00 98.3 94 18 144/74 (97) 93 06/28/17 16:04 97.9 90 16 132/62 (85) 92 06/28/17 12:00 97.8 87 20 124/63 (83) 94 06/28/17 08:00 98.2 82 20 137/67 (90) 93 06/28/17 07:42 Room Air I/O 06/28/17 06/28/17 06/28/17 06/29/17 06/29/17 06/29/17 07:00 15:00 23:00 07:00 15:00 23:00 Intake Total 360 ml 840 ml 420 ml Output Total 300 ml 500 ml 1050 ml Balance 60 ml 340 ml -630 ml Intake Oral 360 ml 840 ml 420 ml Output Urine Total 300 ml 500 ml 1050 ml # Voids 1 # Bowel Movements 0 1 0 Result Diagram: 06/27/17 0450 06/27/17 0450 Imaging Last 72 hours Impressions Hip and Pelvis X-Ray 06/25/17 0000 Signed Impressions: Service Date/Time: Sunday, June 25, 2017 15:21 - CONCLUSION: Impacted right femoral neck fracture. Linus Dee MD Chest X-Ray 06/25/17 0000 Signed Impressions: Service Date/Time: Sunday, June 25, 2017 15:13 - CONCLUSION: Mild pulmonary vascular congestion and low lung volumes. No other acute cardiopulmonary disease identified. Linus Dee MD Objective Remarks RLE: dressings clean and dry. itnact. NVI. +CKS Assessment & Plan Assessment and Plan 1) Right hip hemiarthroplasty POD 3 Weightbearing as tolerated with posterior hip precautions Dry dressings. Begin changing [place] day 2. Take note that surgical tape is over incision and must remain in place. Lovenox Case management for discharge placement to rehab ortho cleared for DC to rehab today Follow-up appointment Dr. Fajardo or PA in 2 weeks Juvenal Barriga/Plumbing Installer PA June 29, 2017 06:31
[2017-06-29 08:21] VITALS: BP 134/66; PULSE 84; RESP 18; TEMP 97.8; O2SAT 95
[2017-06-29] MEDS: ENOXAPARIN SODIUM 30 MG/0.3 ML SYRINGE SQ SCH (09:18)
[2017-06-29] MEDS: FAMOTIDINE 20 MG TAB PO SCH ×2 (09:18→21:38)
[2017-06-29] MEDS: ALLOPURINOL 300 MG TAB PO SCH (09:18)
[2017-06-29] MEDS: SODIUM CHLORIDE 0.9% FLUSH 10 ML FLUSH IV FLUSH SCH ×2 (09:18→21:39)
[2017-06-29] MEDS: CHOLECALCIFEROL (VIT D3) 5000 UNIT CAP PO SCH (09:18)
[2017-06-29] MEDS: DOCUSATE SODIUM 50 MG/SENNA 8.6 MG TAB PO SCH ×2 (09:18→21:38)
[2017-06-29 12:00] VITALS: BP 119/59; PULSE 76; RESP 17; TEMP 97.8; O2SAT 94
--- NOTE | 2017-06-29 14:38 | HHI.PR ---
Subjective Remarks Pin controlled Denies cp/sob Objective Vitals Vital Signs Date Time Temp Pulse Resp B/P (MAP) Pulse Ox O2 Delivery O2 Flow Rate FiO2 06/29/17 12:00 97.8 76 17 119/59 (79) 94 06/29/17 08:21 97.8 84 18 134/66 (88) 95 06/29/17 00:01 98.1 85 18 133/65 (87) 94 06/28/17 20:00 98.3 94 18 144/74 (97) 93 06/28/17 16:04 97.9 90 16 132/62 (85) 92 I/O 06/28/17 06/28/17 06/28/17 06/29/17 06/29/17 06/29/17 07:00 15:00 23:00 07:00 15:00 23:00 Intake Total 360 ml 840 ml 420 ml Output Total 300 ml 500 ml 1050 ml Balance 60 ml 340 ml -630 ml Intake Oral 360 ml 840 ml 420 ml Output Urine Total 300 ml 500 ml 1050 ml # Voids 1 # Bowel Movements 0 1 0 Result Diagram: 06/27/17 0450 06/27/17 0450 Objective Remarks AAOx3 Clear lungs S1S2 RRR, no MRG abdomen soft, nt no edema in lower extremities. good pedal pulses BL right leg with dressing covering postsurgical wound C/D/I. Procedures Right hip hemiarthroplasty A/P Problem List: (1) Hip fracture, right ICD Code: S72.001A - Fracture of unspecified part of neck of right femur, initial encounter for closed fracture Status: Acute (2) Fall ICD Code: W19.XXXA - Unspecified fall, initial encounter (3) Leukocytosis ICD Code: D72.829 - Elevated white blood cell count, unspecified Status: Resolved (4) Hypothyroidism ICD Code: E03.9 - Hypothyroidism Status: Chronic Assessment and Plan 77-year-old male with past medical history significant for hypothyroidism, hyperlipidemia, gout, sleep apnea, kidney stones, and lumbar radiculopathy with right foot drop with recent decompressive laminectomy by Dr. Mancilla performed on November 2016. Patient presents to the emergency department via [facility] after falling at home. Mechanical fall resulting in hip fracture -Hip x-ray completed in ER reviewed, impacted right femoral neck fracture. -Patient received a total of 10 mg of IV morphine while in the EVAC -ER provider has consulted or so, spoke to Dr. Fajardo's PA, patient will be admitted and kept n.p.o. for surgical intervention tomorrow -Pain control with p.o. Percocet, IV morphine for breakthrough pain, bowel regimen - 06/28 the patient status post right hip arthroplasty. Pain control as per orthopedic surgery. Leukocytosis -CBC on admission with WBC count 18.4 with left shift, neutrophils 87.0, afebrile, no tachycardia -Chest x-ray completed in ED reviewed, mill pulmonary vascular congestion and low lung volumes, no other acute disease. No respiratory complaints, 98% on room air. -Check UA, leukocytosis likely related to stress following fracture, follow labs in the a.m. 06/28 urinalysis negative. Leukocytosis resolving. Likely stress-induced. Hypothyroidism GERD Gout -Continue home dose levothyroxine 112 mcg daily, allopurinol 300 mg daily, and Zantac 150 mg daily per DVT prophylaxis-Wagner's/SCDs, Lovenox subcutaneously. Discharge Planning Patient cleared to be discharged by orthopedic surgery. Discharge pending insurance authorization for rehab. Possible DC in a.m. Problem Qualifiers (1) Hip fracture, right: Qualified Codes: S72.001A - Fracture of unspecified part of neck of right femur , initial encounter for closed fracture (2) Leukocytosis: Qualified Codes: D72.828 - Other elevated white blood cell count (3) Hypothyroidism: Qualified Codes: E03.9 - Hypothyroidism, unspecified Alexei Browne MD June 29, 2017 14:38
[2017-06-29 16:25] VITALS: BP 145/65; PULSE 90; RESP 18; TEMP 98.1; O2SAT 94
[2017-06-29 19:11] VITALS: BP 128/90; PULSE 92; RESP 18; TEMP 97.8; O2SAT 96
[2017-06-29 23:11] VITALS: BP 132/61; PULSE 87; RESP 18; TEMP 97.8; O2SAT 93
[2017-06-30] MEDS: LEVOTHYROXINE SODIUM 112 MCG TAB PO SCH (05:40)
[2017-06-30 08:00] VITALS: BP 136/61; PULSE 65; RESP 18; TEMP 97.8; O2SAT 93
[2017-06-30] MEDS: CHOLECALCIFEROL (VIT D3) 5000 UNIT CAP PO SCH (09:35)
[2017-06-30] MEDS: oxyCODONE/ACETAMINOPHEN 10 MG/325 MG TAB PO PRN ×3 (09:35→18:35)
[2017-06-30] MEDS: DOCUSATE SODIUM 50 MG/SENNA 8.6 MG TAB PO SCH (09:35)
[2017-06-30] MEDS: ALLOPURINOL 300 MG TAB PO SCH (09:35)
[2017-06-30] MEDS: FAMOTIDINE 20 MG TAB PO SCH (09:35)
[2017-06-30] MEDS: SODIUM CHLORIDE 0.9% FLUSH 10 ML FLUSH IV FLUSH SCH (09:36)
[2017-06-30] MEDS: ENOXAPARIN SODIUM 30 MG/0.3 ML SYRINGE SQ SCH (09:36)
--- NOTE | 2017-06-30 09:40 | HHI.DCPOC ---
Discharge Care Plan Diagnosis: (1) Fall (2) Hip fracture, right (3) Hypothyroidism Goals to Promote Your Health * To prevent worsening of your condition and complications * To maintain your health at the optimal level Directions to Meet Your Goals Take your medications as prescribed Follow your dietary instruction Follow activity as directed Keep your appointments as scheduled Take your immunizations and boosters as scheduled If your symptoms worsen call your PCP, if no PCP go to Urgent Care Center or Emergency Room Smoking is Dangerous to Your Health. Avoid second hand smoke Call the 24-hour hour crisis hotline for domestic abuse at Alexei Browne MD June 30, 2017 09:40
--- NOTE | 2017-06-30 11:28 | HHI.PR ---
Subjective Remarks c/o right knee pain. Objective Vitals Vital Signs Date Time Temp Pulse Resp B/P (MAP) Pulse Ox O2 Delivery O2 Flow Rate FiO2 06/30/17 08:00 97.8 65 18 136/61 (86) 93 06/29/17 23:11 97.8 87 18 132/61 (84) 93 06/29/17 19:11 97.8 92 18 128/90 (103) 96 06/29/17 16:25 98.1 90 18 145/65 (91) 94 06/29/17 12:00 97.8 76 17 119/59 (79) 94 I/O 06/29/17 06/29/17 06/29/17 06/30/17 06/30/17 06/30/17 07:00 15:00 23:00 07:00 15:00 23:00 Intake Total 420 ml 1300 ml 360 ml Output Total 1050 ml 700 ml Balance -630 ml 600 ml 360 ml Intake Oral 420 ml 1300 ml 360 ml Output Urine Total 1050 ml 700 ml # Voids 3 # Bowel Movements 0 0 0 Result Diagram: 06/27/17 0450 06/27/17 0450 Objective Remarks AAOx3 Clear lungs S1S2 RRR, no MRG abdomen soft, nt no edema in lower extremities. good pedal pulses BL right leg with dressing covering postsurgical wound C/D/I. Procedures Right hip hemiarthroplasty A/P Problem List: (1) Hip fracture, right ICD Code: S72.001A - Fracture of unspecified part of neck of right femur, initial encounter for closed fracture Status: Acute (2) Fall ICD Code: W19.XXXA - Unspecified fall, initial encounter (3) Leukocytosis ICD Code: D72.829 - Elevated white blood cell count, unspecified Status: Resolved (4) Hypothyroidism ICD Code: E03.9 - Hypothyroidism Status: Chronic Assessment and Plan 77-year-old male with past medical history significant for hypothyroidism, hyperlipidemia, gout, sleep apnea, kidney stones, and lumbar radiculopathy with right foot drop with recent decompressive laminectomy by Dr. Mancilla performed on November 2016. Patient presents to the emergency department via [facility] after falling at home. Mechanical fall resulting in hip fracture -Hip x-ray completed in ER reviewed, impacted right femoral neck fracture. -Patient received a total of 10 mg of IV morphine while in the EV[facility] -ER provider has consulted or so, spoke to Dr. Fajardo's PA, patient will be admitted and kept n.p.o. for surgical intervention tomorrow -Pain control with p.o. Percocet, IV morphine for breakthrough pain, bowel regimen - 06/28 the patient status post right hip arthroplasty. Pain control as per orthopedic surgery. Leukocytosis -CBC on admission with WBC count 18.4 with left shift, neutrophils 87.0, afebrile, no tachycardia -Chest x-ray completed in ED reviewed, mill pulmonary vascular congestion and low lung volumes, no other acute disease. No respiratory complaints, 98% on room air. -Check UA, leukocytosis likely related to stress following fracture, follow labs in the a.m. 06/28 urinalysis negative. Leukocytosis resolving. Likely stress-induced. Hypothyroidism GERD Gout -Continue home dose levothyroxine 112 mcg daily, allopurinol 300 mg daily, and Zantac 150 mg daily per DVT prophylaxis-Wagner's/SCDs, Lovenox subcutaneously. Discharge Planning Patient cleared to be discharged by orthopedic surgery. Discharge pending insurance authorization for rehab. Problem Qualifiers (1) Hip fracture, right: Qualified Codes: S72.001A - Fracture of unspecified part of neck of right femur , initial encounter for closed fracture (2) Leukocytosis: Qualified Codes: D72.828 - Other elevated white blood cell count (3) Hypothyroidism: Qualified Codes: E03.9 - Hypothyroidism, unspecified Alexei Browne MD June 30, 2017 11:28
--- NOTE | 2017-06-30 11:31 | HHI.FF ---
Face to Face Verification Diagnosis: (1) Hypothyroidism (2) Hip fracture, right Physical Therapy Order: Improve ambulation, Strength and gait training Home Health Nursing Order: Wound care and dressing changes Nursing assessment with vital signs I have seen patient Igor Lynne on 06/30/17. My clinical findings support the need for the requested home health care services because: Limited ability to care for self High risk of falls I certify that my clinical findings support that this patient is homebound because: Unsteady gait/balance Unsafe to leave home unassisted Unable to use public transportation Alexei Browne MD June 30, 2017 11:31
--- NOTE | 2017-06-30 14:13 | HHI.DS ---
Discharge Summary Admission Date June 25, 2017 at 16:43 Discharge Date: June 30, 2017 Admitting Diagnosis r hip fracture; leukocytosis (1) Hip fracture, right ICD Code: S72.001A - Fracture of unspecified part of neck of right femur, initial encounter for closed fracture Status: Acute (2) Fall ICD Code: W19.XXXA - Unspecified fall, initial encounter (3) Leukocytosis ICD Code: D72.829 - Elevated white blood cell count, unspecified Status: Resolved (4) Hypothyroidism ICD Code: E03.9 - Hypothyroidism Status: Chronic Procedures Right hip hemiarthroplasty Brief History - From Admission 77-year-old male with past medical history significant for hypothyroidism, hyperlipidemia, gout, sleep apnea, kidney stones, and lumbar radiculopathy with right foot drop with recent decompressive laminectomy by Dr. Mancilla performed on November 2016. Patient presents to the emergency department via [facility] after falling at home. Patient states that he was taking his bed apart when he tripped over the bed frame as this was on wheels causing him to fall and landed on his right hip. He denies any head trauma, dizziness, lightheadedness, chest pain, or heart palpitations prior to fall or afterwards. He reports that as soon as he fell he fell he had excruciating pain to the right hip 10/10 which radiated down his right leg. He immediately knew it was broken. He tells me that even when the [facility] came to pick him up he was in excruciating amount of pain and this was worse with movement. Currently is resting in ER stretcher and states that his pain is about 5/10, much improved with pain medication. Prior to fall patient reports doing well and denies any recent fevers, chills, nausea, vomiting, diarrhea, headaches, dizziness, lightheadedness, shortness of breath, cough or chest pain. He is being followed by [facility] for physical therapy and had future plans to have right foot injections due to foot drop. CBC/BMP: 06/27/17 0450 06/27/17 0450 Imaging Last Impressions Hip and Pelvis X-Ray 06/26/17 0846 Signed Impressions: Service Date/Time: Monday, June 26, 2017 16:53 - CONCLUSION: Satisfactory appearance post right LORRI Andrew Godwin MD Chest X-Ray 06/25/17 0000 Signed Impressions: Service Date/Time: Sunday, June 25, 2017 15:13 - CONCLUSION: Mild pulmonary vascular congestion and low lung volumes. No other acute cardiopulmonary disease identified. Linus Dee MD PE at Discharge AAOx3 Clear lungs S1S2 RRR, no MRG abdomen soft, nt no edema in lower extremities. good pedal pulses BL right leg with dressing covering postsurgical wound C/D/I. Pt update on day of discharge c/o pain in right knee. Denies cp/sob. Patient offered home health PT which he refuses. Pt Condition on Discharge: Good Discharge Disposition: Discharge Home Discharge Time: > 30 minutes Discharge Instructions DIET: Follow Instructions for: As Tolerated, No Restrictions Activities you can perform: Weight Bearing as Peace, See Additionl Instruction Other Activity Instructions: Weightbearing as tolerated with posterior hip precautions Dry dressings. Begin changing [place] day 2. Take note that surgical tape is over incision and must remain in place. Follow up Referrals: Orthopedics - 2 Weeks @ [facility] with Cali Fajardo MD New Medications: Calcium Carbonate-Vitamin D (Calcium 600+D 200) 600-200 Mg-Unit Tab 1 TAB PO BID for Nutritional Supplement, #90 TAB 0 Refills Ergocalciferol (Ergocalciferol) 50,000 Unit Cap 62364 UNITS PO Q7D for Nutritional Supplement, #8 CAP Hydrocodone-Acetaminophen (Hydrocodone-Acetaminophen) 10-325 mg Tab 1 TAB PO Q4H PRN for PAIN, #60 TAB 0 Refills Rivaroxaban (Xarelto) 10 Mg Tab 10 MG PO DAILY for Blood Clot Prevention, #14 TAB 0 Refills Walker with Front Wheels (Walker with Front Wheels) 1 Mis Mis EA .XX DIRECTED, #1 0 Refills Continued Medications: Allopurinol (Allopurinol) 300 Mg Tab 300 MG PO DAILY for Gout, #30 TAB 0 Refills Levothyroxine (Synthroid) 112 Mcg Tab 112 MCG PO DAILY for Thyroid, #30 TAB 3 Refills Ranitidine (Zantac) 150 Mg Tab 150 MG PO DAILY for Reduce Stomach Acid, #30 TAB 0 Refills Mendez Chu,Alexei MD June 30, 2017 14:13
== END 2017-06-30 19:04 | disposition home or self-care (01) | DRG 470 ==
LOC: NEPC 14:48 → NEDA 16:43 → N06B 18:16
PROVIDERS: ADMIT Hospitalist; ATTEND Hospitalist
PROC: 0SRR0JZ Replacement of Right Hip Joint, Femoral Surface with Synthetic Substitute, Open Approach (ICD-10-PCS; principal; 2017-06-26 09:08)
DX: S72.001A Fracture of unspecified part of neck of right femur, initial encounter for closed fracture (principal); E55.9 Vitamin D deficiency, unspecified; E03.9 Hypothyroidism, unspecified; M10.9 Gout, unspecified; M21.371 Foot drop, right foot; M51.16 Intervertebral disc disorders with radiculopathy, lumbar region; K21.9 Gastro-esophageal reflux disease without esophagitis; G47.30 Sleep apnea, unspecified; E78.5 Hyperlipidemia, unspecified; E78.00 Pure hypercholesterolemia, unspecified; D72.828 Other elevated white blood cell count; M19.90 Unspecified osteoarthritis, unspecified site; F32.9 Major depressive disorder, single episode, unspecified; F41.9 Anxiety disorder, unspecified; W01.0XXA Fall on same level from slipping, tripping and stumbling without subsequent striking against object, initial encounter; Y92.009 Unspecified place in unspecified non-institutional (private) residence as the place of occurrence of the external cause; Z85.828 Personal history of other malignant neoplasm of skin; Z88.5 Allergy status to narcotic agent; Z98.1 Arthrodesis status
CPT/HCPCS: 71045; 73502; 80048; 80053; 81001; 82306; 83735; 84100; 85025; 85610; 85730; 93005; 99285; C1713; C1776; J0131; J0690; J1100; J1170; J1580; J1650; J2250; J2270; J2370; J2405; J3010; J3370; J7050; J7120; J8501; L1830